=== PATIENT | male | born 1940 | race Caucasian/White ===

== ENCOUNTER → 2017-09-28 | Day surgery (SDC) | payer MEDICARE, OTHER ==
[2017-09-22 16:22] LABS: BASOPHILS # (AUTO) 0.1 (0.0-0.1); BASOPHILS % 0.8 % (0.0-1.0); EOSINOPHILS # (AUTO) 0.6 (0.0-0.4); EOSINOPHILS % 8.9 % (0.0-6.0); HEMATOCRIT 47.1 % (38.2-49.6); HEMOGLOBIN 15.1 g/dL (14.0-18.0); LYMPHOCYTES # (AUTO) 1.2 (1.0-3.2); LYMPHOCYTES % 18.2 % (18.0-39.1); MEAN CORPUSCULAR HEMOGLOBIN 31.3 pg (28-32); MEAN CORPUSCULAR HGB CONC 32.1 g/dL (31-35); MEAN CORPUSCULAR VOLUME 97.7 fL (81-99); MONOCYTES # (AUTO) 0.6 (0.2-0.8); MONOCYTES % 9.4 % (4.4-11.3); NEUTROPHILS % 62.5 % (38.7-80.0); PLATELET COUNT 174 x10e3/uL (140-360); RED BLOOD COUNT 4.82 x10e6/uL (4.3-5.7); RED CELL DISTRIBUTION WIDTH 14.8 % (11.7-14.4)
[~2017-09-28] MED LIST: ALPHA LIPOIC A300 MG PO; AMPICILLIN SODIU1 GM IV; DIABETA5 M1 PO; ENTERIC ASPIRIN81 MG PO; FENTANYL CITRATE/PF 100MCG/2 ML INJ ONE; GLIPIZIDE5 MG PO; Glyburide PO; L-CARNITINE500 M1; L-CARNITINE500 MG PO; LANTUS 3ML100 UNITS/; METOPROLOL TART25 MG PO; MIDAZOLAM HCL 2 MG/2 ML VIAL ONE; OMEPRAZOLE40 MG; PRADAXA150 MG PO; PRADAXA75 MG; PROPOFOL IV EMULSION 10 MG/ML 50 ML VIAL ONE; SOTALOL PO; TAMOXIFEN CITRA10 MG PO; TRILIPIX135 MG PO; Z.0.GLUCOPHAGE500 MG PO; Z.0.LASIX40 MG PO; Z.0.METOPROLOL SUC10 PO; Z.0.MULTAQ400 MG PO; Z.0.PRADAXA150 MG PO; Z.0.SIMVASTATIN40 MG PO; Z.0.TRILIPIX135 MG PO; Z.0.ZESTRIL10 MG PO
== END | disposition home or self-care (01) ==
LOC: OR 11:03
PROVIDERS: ATTEND Internal Medicine Gastroenterology
DX: K21.0 Gastro-esophageal reflux disease with esophagitis (principal); K29.50 Unspecified chronic gastritis without bleeding; K44.9 Diaphragmatic hernia without obstruction or gangrene; I10 Essential (primary) hypertension; D64.9 Anemia, unspecified; E11.9 Type 2 diabetes mellitus without complications; I48.91 Unspecified atrial fibrillation; R05 Cough; Z01.810 Encounter for preprocedural cardiovascular examination; Z01.812 Encounter for preprocedural laboratory examination; Z79.4 Long term (current) use of insulin; Z79.02 Long term (current) use of antithrombotics/antiplatelets; Z85.3 Personal history of malignant neoplasm of breast; Z85.51 Personal history of malignant neoplasm of bladder; Z86.14 Personal history of Methicillin resistant Staphylococcus aureus infection
CPT/HCPCS: 36415 ×2; 43239; 82948; 85025; 88305; 88312; 93005; J2250

== ENCOUNTER 2018-06-06 21:27 | Inpatient (IN) | payer MEDICARE, OTHER ==
[~2018-06-06] VITALS: Ht 188 cm; Wt 97.1 kg
[~2018-06-06 21:27] MED LIST changes: -FENTANYL CITRATE/PF 100MCG/2 ML INJ ONE; -MIDAZOLAM HCL 2 MG/2 ML VIAL ONE; -OMEPRAZOLE40 MG; +OMEPRAZOLE40 MG PO; -PROPOFOL IV EMULSION 10 MG/ML 50 ML VIAL ONE
--- OUTSIDE RECORDS SUMMARY | 2018-06-06 21:32 | XMS REPORT ---
Author Author [facility] Address Unknown Phone Unavailable Care Team Providers Care Medical Insurance Collector Name Role Phone FLORENCE SIERRA Unavailable Unavailable Payers Payer Name Policy Type Policy Number Effective Date Expiration Date Problems This patient has no known problems. Allergies, Adverse Reactions, Alerts Allergy Name Allergy Type Status Severity Reaction(s) Onset Date Inactive Date Treating Clinician Comments No Known Allergies DA Active U 2015-01-03 00:00:00 Medications This patient has no known medications. Results Test Description Test Time Test Comments Text Results Atomic Results Result Comments GLUBED 2018-05-24 16:23:00 GLUBED (test code=GLUBED) 215 mg/dL 74-106 Performed by certified head operator at [facility] [id number] 12:56:00* Test Item Value Reference Range Comments GLUBED (test code=GLUBED) 150 mg/dL 74-106 Performed by certified head operator at [facility] - XR CHEST 2 [id number] 11:31:00 FAX: Vipul Stallworth MD [phone] [place]: B St: ADM FAX: Mahin Huitron MD [phone] Name: HOOD RUIZ KAIN [facility] : 1940 Age/S: 78/M [address] [facility] Unit #: [id number] Loc: V.4036 [place] [address] Phys: Mahin Hayes MD Acct: [id number] Dis Date: Status: ADM IN PHONE #: [phone] Exam Date: 05/24/2018 1028 FAX #: [phone] Reason: S/P PPM INSERTION EXAMS: CPT CODE: [id number] XR CHEST 2 V 17162 HISTORY: Post pacemaker placement. COMPARISON: Previous day. Left pacemaker with the single lead in the right ventricle. No pneumothorax. No infiltrates, effusion or congestion. Calcified granuloma in the right lower lobe. Axillary clips on the right. C ardiomegaly. DJD of the dorsal spine. IMPRESSION: Left pacemaker with the single lead in the right ventricle without pneumothorax. Lungs are clear. at 1131 Reported and signed by: Richelle Mandel M.D. CC: Vipul Calderon MD; Mahin woodward M.D. Technologist: EDUIN WILLIAM JR Trnscrd Date/Time/By: 05/24/2018 (1131) : By: [email or web address] Orig Print D/T: S: 05/24/2018 (9829) PAGE 1 Signed Report BASIC METABOLIC [id number] 06:37:00* Test Item Value Reference Range Comments SODIUM (test code=NA) 142 mmol/L 136-145 POTASSIUM (test code=K) 4.0 mmol/L 3.5-5.1 CHLORIDE (test code=CL) 111.0 mmol/L 98-107 CARBON DIOXIDE (test code=CO2) 24.0 mmol/L 21-32 ANION GAP (test code=GAP) 11.0 10-20 GLUCOSE (test code=GLU) 184 mg/dL 74-106 BLOOD UREA NITROGEN (test code=BUN) 26 mg/dL 7-18 GLOMERULAR FILTRATION RATE (test code=GFR) 42 mL/min >=60 Estimated GFR by using Modified MDRD formula.Chronic kidney disease is defined as either kidney damageor GFR <60 mL/min/1.73 m2 for >3 months. CREATININE (test code=CREAT) 1.60 mg/dL 0.7-1.3 BUN/CREATININE RATIO (test code=BUN/CREA) 16.4 10-20 CALCIUM (test code=CA) 8.5 mg/dL 8.5-10.1 BASIC METABOLIC [id number] 06:27:00* Test Item Value Reference Range Comments SODIUM (test code=NA) 142 mmol/L 136-145 POTASSIUM (test code=K) 4.0 mmol/L 3.5-5.1 CHLORIDE (test code=CL) 111.0 mmol/L 98-107 CARBON DIOXIDE (test code=CO2) mmol/L 21-32 ANION GAP (test code=GAP) 10-20 GLUCOSE (test code=GLU) mg/dL 74-106 BLOOD UREA NITROGEN (test code=BUN) mg/dL 7-18 GLOMERULAR FILTRATION RATE (test code=GFR) mL/min >=60 CREATININE (test code=CREAT) mg/dL 0.7-1.3 BUN/CREATININE RATIO (test code=BUN/CREA) 10-20 CALCIUM (test code=CA) mg/dL 8.5-10.1 CBC W/AUTO [id number] 06:12:00* Test Item Value Reference Range Comments WHITE BLOOD CELL (test code=WBC) 6.5 K/mm3 4.5-12.5 RED BLOOD CELL (test code=RBC) 4.84 mill/mm3 4.0-5.8 HEMOGLOBIN (test code=HGB) 14.6 gram/dL 13.0-17.5 HEMATOCRIT (test code=HCT) 47.3 % 42.0-52.0 MEAN CELL VOLUME (test code=MCV) 97.7 fL 80-98 MEAN CELL HGB (test code=MCH) 30.2 picogram 27.0-33.0 MEAN CELL HGB CONCETRATION (test code=MCHC) 30.9 gram/dL 33.0-36.0 RED CELL DISTRIBUTION WIDTH (test code=RDW) 14.7 % 11.6-16.2 RED CELL DISTRIBUTION WIDTH SD (test code=RDW-SD) 53.1 fL 37.0-51.0 PLATELET COUNT (test code=PLT) 160 K/mm3 150-450 MEAN PLATELET VOLUME (test code=MPV) 10.2 fL 6.7-11.0 NEUTROPHIL % (test code=NT%) 64.5 % 39.0-69.0 IMMATURE GRANULOCYTE % (test code=IG%) 0.3 % 0.0-5.0 LYMPHOCYTE % (test code=LY%) 20.8 % 25.0-55.0 MONOCYTE % (test code=MO%) 8.9 % 0.0-10.0 EOSINOPHIL % (test code=EO%) 4.9 % 0.0-5.0 BASOPHIL % (test code=BA%) 0.6 % 0.0-1.0 NUCLEATED RBC % (test code=NRBC%) 0.0 % 0-0 NEUTROPHIL # (test code=NT#) 4.18 K/mm3 1.8-7.7 IMMATURE GRANULOCYTE # (test code=IG#) 0.02 x10 3/uL 0-0.03 LYMPHOCYTE # (test code=LY#) 1.35 K/mm3 1.0-5.0 MONOCYTE # (test code=MO#) 0.58 K/mm3 0-0.8 EOSINOPHIL # (test code=EO#) 0.32 K/mm3 0.0-0.5 BASOPHIL # (test code=BA#) 0.04 K/mm3 0.0-0.2 NUCLEATED RBC # (test code=NRBC#) 0.00 K/mm3 0.0-0.1 CBC W/AUTO [id number] 06:09:00* Test Item Value Reference Range Comments WHITE BLOOD CELL (test code=WBC) K/mm3 4.5-12.5 RED BLOOD CELL (test code=RBC) mill/mm3 4.0-5.8 HEMOGLOBIN (test code=HGB) 14.6 gram/dL 13.0-17.5 HEMATOCRIT (test code=HCT) 47.3 % 42.0-52.0 MEAN CELL VOLUME (test code=MCV) fL 80-98 MEAN CELL HGB (test code=MCH) picogram 27.0-33.0 MEAN CELL HGB CONCETRATION (test code=MCHC) gram/dL 33.0-36.0 RED CELL DISTRIBUTION WIDTH (test code=RDW) % 11.6-16.2 RED CELL DISTRIBUTION WIDTH SD (test code=RDW-SD) fL 37.0-51.0 PLATELET COUNT (test code=PLT) K/mm3 150-450 MEAN PLATELET VOLUME (test code=MPV) fL 6.7-11.0 NEUTROPHIL % (test code=NT%) % 39.0-69.0 IMMATURE GRANULOCYTE % (test code=IG%) % 0.0-5.0 LYMPHOCYTE % (test code=LY%) % 25.0-55.0 MONOCYTE % (test code=MO%) % 0.0-10.0 EOSINOPHIL % (test code=EO%) % 0.0-5.0 BASOPHIL % (test code=BA%) % 0.0-1.0 NEUTROPHIL # (test code=NT#) K/mm3 1.8-7.7 LYMPHOCYTE # (test code=LY#) K/mm3 1.0-5.0 MONOCYTE # (test code=MO#) K/mm3 0-0.8 EOSINOPHIL # (test code=EO#) K/mm3 0.0-0.5 BASOPHIL # (test code=BA#) K/mm3 0.0-0.2 [id number] 05:45:00* Test Item Value Reference Range Comments GLUBED (test code=GLUBED) 119 mg/dL 74-106 Performed by certified head operator at [facility] - XR CHEST 1 [id number] 12:25:00 FAX: Vipul Stallworth MD [phone] [place]: St: [facility] FAX: Mahin Huitron MD [phone] Name: HOOD RUIZ [facility] : 1940 Age/S: 78/M [address] [facility] Unit #: [id number] Loc: [place] [address] Phys: Mahin Hayes MD Acct: [id number] Dis Date: Status: [facility] PHONE #: [phone] Exam Date: 05/23/2018 1222 FAX #: [phone] Reason: S/P PPM INSERTION EXAMS: CPT CODE: [id number] XR CHEST 1 V 46545 HISTORY: Post pacemaker placement. COMPARISON: July 14, 2014. Left pacemaker with the single lead in the right ventricle without pneumothorax. No acute infiltrates, effusion or congestion is noted. Cardiomegaly. Right axillary clips. IMPRESSION: No pneumothorax after left pacemaker placement with the single lead in the right ventricle. No acute infiltrates, effusion or congestion. at 1225 Reported and signed by: Curtis Mandel M.D. CC: Vipul Calderon MD; Mahin Hayes M.D. Technologist: RT TRINIDAD(R) Trnscrd Date/Time/By: 05/23/2018 (1224) : By: [email or web address] Orig Print D/T: S: 05/23/2018 (2906) PAGE 1 Signed Report CBC W/AUTO [id number] 10:09:00* Test Item Value Reference Range Comments WHITE BLOOD CELL (test code=WBC) 7.0 K/mm3 4.5-12.5 RED BLOOD CELL (test code=RBC) 5.22 mill/mm3 4.0-5.8 HEMOGLOBIN (test code=HGB) 15.9 gram/dL 13.0-17.5 HEMATOCRIT (test code=HCT) 50.8 % 42.0-52.0 MEAN CELL VOLUME (test code=MCV) 97.3 fL 80-98 MEAN CELL HGB (test code=MCH) 30.5 picogram 27.0-33.0 MEAN CELL HGB CONCETRATION (test code=MCHC) 31.3 gram/dL 33.0-36.0 RED CELL DISTRIBUTION WIDTH (test code=RDW) 14.8 % 11.6-16.2 RED CELL DISTRIBUTION WIDTH SD (test code=RDW-SD) 53.7 fL 37.0-51.0 PLATELET COUNT (test code=PLT) 182 K/mm3 150-450 MEAN PLATELET VOLUME (test code=MPV) 10.4 fL 6.7-11.0 NEUTROPHIL % (test code=NT%) 58.9 % 39.0-69.0 IMMATURE GRANULOCYTE % (test code=IG%) 1.3 % 0.0-5.0 LYMPHOCYTE % (test code=LY%) 23.3 % 25.0-55.0 MONOCYTE % (test code=MO%) 9.1 % 0.0-10.0 EOSINOPHIL % (test code=EO%) 6.3 % 0.0-5.0 BASOPHIL % (test code=BA%) 1.1 % 0.0-1.0 NUCLEATED RBC % (test code=NRBC%) 0.0 % 0-0 NEUTROPHIL # (test code=NT#) 4.13 K/mm3 1.8-7.7 IMMATURE GRANULOCYTE # (test code=IG#) 0.09 x10 3/uL 0-0.03 LYMPHOCYTE # (test code=LY#) 1.63 K/mm3 1.0-5.0 MONOCYTE # (test code=MO#) 0.64 K/mm3 0-0.8 EOSINOPHIL # (test code=EO#) 0.44 K/mm3 0.0-0.5 BASOPHIL # (test code=BA#) 0.08 K/mm3 0.0-0.2 NUCLEATED RBC # (test code=NRBC#) 0.00 K/mm3 0.0-0.1 MANUAL DIFF REQUIRED (test code=MDIFF) NO BASIC METABOLIC [id number] 10:05:00* Test Item Value Reference Range Comments SODIUM (test code=NA) 143 mmol/L 136-145 POTASSIUM (test code=K) 4.2 mmol/L 3.5-5.1 CHLORIDE (test code=CL) 110.0 mmol/L 98-107 CARBON DIOXIDE (test code=CO2) 26.0 mmol/L 21-32 ANION GAP (test code=GAP) 11.2 10-20 GLUCOSE (test code=GLU) 139 mg/dL 74-106 BLOOD UREA NITROGEN (test code=BUN) 27 mg/dL 7-18 GLOMERULAR FILTRATION RATE (test code=GFR) 35 mL/min >=60 Estimated GFR by using Modified MDRD formula.Chronic kidney disease is defined as either kidney damageor GFR <60 mL/min/1.73 m2 for >3 months. CREATININE (test code=CREAT) 1.90 mg/dL 0.7-1.3 BUN/CREATININE RATIO (test code=BUN/CREA) 14.3 10-20 CALCIUM (test code=CA) 8.8 mg/dL 8.5-10.1 [id number] 10:04:00* Test Item Value Reference Range Comments GLUBED (test code=GLUBED) 123 mg/dL 74-106 Performed by certified head operator at [facility] PROTHROMBIN [id number] 09:55:00* Test Item Value Reference Range Comments PROTHROMBIN TIME PATIENT (test code=PTP) 13.5 seconds 9.0-14.0 INTERNATIONAL NORMAL RATIO (test code=INR) 1.1 0.8-1.2 The therapeutic range for oral anticoagulant therapy formost indications is an international normalized ratio (INR)of between 2.0 and 3.0. The recommended therapeutic INRrange for various clinical situations is listed below: Clinical Situation INR range Pulmonary e mbolism treatment (2.0-3.0)Venous thrombosis treatmentVenous thrombosis prophylaxis (high risk surgery)Prevention of systemic embolism from: Acute myocardial infarction Valvular heart disease Atrial fibrillation Mechanical prosthetic heart valves (2.5-3.5) BASIC METABOLIC [id number] 09:45:00* Test Item Value Reference Range Comments SODIUM (test code=NA) 143 mmol/L 136-145 POTASSIUM (test code=K) 4.2 mmol/L 3.5-5.1 CHLORIDE (test code=CL) 110.0 mmol/L 98-107 CARBON DIOXIDE (test code=CO2) 26.0 mmol/L 21-32 ANION GAP (test code=GAP) 11.2 10-20 GLUCOSE (test code=GLU) mg/dL 74-106 BLOOD UREA NITROGEN (test code=BUN) 27 mg/dL 7-18 GLOMERULAR FILTRATION RATE (test code=GFR) mL/min >=60 CREATININE (test code=CREAT) mg/dL 0.7-1.3 BUN/CREATININE RATIO (test code=BUN/CREA) 10-20 CALCIUM (test code=CA) 8.8 mg/dL 8.5-10.1 TISSUE [id number] 10:37:00Surgical Pathology Report Case: [id number] Authorizing Provider: John Sierra, Collected: 04/14/2018 0931 Ordering Location: [facility] Received: 04/14/2018 1227 SERVICES Pathologist: Shayla Singh MD Specimens: A) - Biopsy, Gastroesophageal Junction, GE JUNCTION NODULE BX AT 42CM - R/O BARRETTS B) - Biopsy, Gastroesophageal Junction, GE JUNCTION BX AT 42CM - R/O BARRETTS C) - Biopsy, Esophagus, ESOPHAGUS BX AT 41CM - R/O BARRETTS A. GASTROESOPHAGEAL JUNCTION, NODULE, BIOPSY AT 42 CM, BIOPSY: - PREDOMINANTLY FOVEOLAR EPITHELIUM WITH HYPERPLASTIC AND REGENERATIVE CHANGES - NEGATIVE FOR DYSPLASIA OR INTESTINAL METAPLASIA B. GASTROESOPHAGEAL JUNCTION AT 42 CM, BIOPSY: - SQUAMOCOLUMNAR JUNCTIONAL MUCOSA WITH FOVEOLAR HYPERPLASIA - CHRONIC ACTIVE CARDIOESOPHAGITIS - NEGATIVE FOR DYSPLASIA OR INTESTINAL METAPLASIA C. ESOPHAGUS AT 41 CM, BIOPSY: - MILD ACTIVE ESOPHAGITIS WITH MILD BASAL CELL HYPERPLASIA AND INCREASE INTRAEPITHELIAL EOSINOPHILS UPTO 10 PER HIGH POWER FIELD ( SEE COMMENT) - PASD SATIN FOR FUNGAL ORGANISMS IS NEGATIVE - IMMUNOSTAINS HSV-1 AND 2 ARE NEGATIVE FOR VIRAL INCLUSION Signing Pathologist Direct Phone Line: [phone] signed by Shayla Singh MD on 04/18/2018 at 10:37 AMEndoscopic report reviewed./[id number]'s es ophagus with low-grade dysplasia, rule out Rios's A. GE junction nodule biops y at 42 cm. B. GE junction biopsy at 42 cm. C. Esophagus biopsy at 41 cmSpecimen is received in three containers of formalin all labeled with the patient's info rmation. Specimen A: Labeled "GE junction nodule biopsy at 42 cm" consists of a 0.3 cm fragment of rodriguez tissue submitted in A1. Specimen B: Labeled "GE junction biopsy at 42 cm" consists of three fragments of rodriguez tissue ranging from less anne marie n 0.1 to 0.3 cm, submitted in B1. Specimen C: Labeled "esophagus biopsy at 41 cm " consists of multiple fragments of off-white tissue ranging from less than 0.1 and 0.3 cm, submitted in C1. CG/ew Performed The interpretation of this case inc luded the use of immunohistochemistry or special stains. Immunohistochemistry te chnical testing was performed at [facility], Pathology Lab oratory where it was developed and its performance characteristics were determin ed. It has not been cleared or approved by the U.S. Food and Drug Administration . The FDA has determined that such clearance or approval is not necessary. The t est is used for clinical purposes. It should not be regarded as investigational or for research. This laboratory is certified under the Clinical Laboratory Impr ovement Amendments of 1988 (CLIA-88) as qualified to perform high complexity cli nical laboratory testing.POCT-GLUCOSE [id number] 07:57:00* Test Item Value Reference Range Comments POC-GLUCOSE METER (BEAKER) (test gvoq=4103) 179 mg/dL 70-110 TESTED AT [facility] [address] [facility] [address] POCT-GLUCOSE [id number] 08:16:00* Test Item Value Reference Range Comments POC-GLUCOSE METER (BEAKER) (test oxav=2405) 146 mg/dL 70-110 TESTED AT [address] [address]
--- OUTSIDE RECORDS SUMMARY | 2018-06-06 21:32 | XMS REPORT | Clinical Summary ---
Author Author MARITZA Overture ServicesIdaho Falls Community HospitalSocialSafe [facility] Overture ServicesSt[facility] Luke'S Bo[facility] Medical CenterRed Rabbit incSt. [facility] Address Unknown Phone Unavailable Care Team Providers Care Authorizer Name Role Phone Pcp, No PCP Unavailable Allergies No Known Allergies Medications End Date Status Medication Sig Dispensed Refills Start Date Active insulin glargine (LANTUS) Inject 28 0 100 unit/mL injection Units subcutaneousl y nightly Use as directed . Active metoprolol (TOPROL-XL) 50 Take 50 mg by 0 MG 24 hr tablet mouth 2 (two) times daily Takes 1 tablet in am and 0.5 tablet at hs . Active dabigatran (PRADAXA) 75 Take 75 mg by 0 mg CapIndications: mouth 2 (two) Prevent Thromboembolism times daily. in Chronic Atrial Fibrillation Active fenofibrate micronized Take 134 mg 0 (LOFIBRA) 134 MG capsule by mouth every morning before breakfast. Active glipiZIDE (GLUCOTROL) 5 Take 5 mg by 0 MG tablet mouth daily with breakfast. Active omeprazole (PRILOSEC) 40 Take 40 mg by 0 MG capsule mouth daily. Active tamoxifen (NOLVADEX) 10 Take 10 mg by 0 MG tablet mouth daily. Active UNKNOWN 2 tablets 2 0 (two) times daily Alpha Lipoic acid . Active levOCARNitine tartrate Take 1 tablet 0 250 mg Cap by mouth daily. Active coenzyme Q10 100 mg Take 100 mg 0 capsule by mouth daily occasionally . Active Lactobacillus acidophilus Take by mouth 0 (PROBIOTIC ORAL) as needed occasionally . Active enzymes,digestive Take by mouth 0 (DIGESTIVE ENZYMES ORAL) as needed 3 times per week . Active Problems Not on file Encounters Care Team Description Date Type Specialty Damien Woodruff MD 04/14/2018 Anesthesia Event John iSerra MD UPPER ENDOSCOPY 04/14/2018 Surgery John Sierra MD 04/14/2018 Hospital Encounter Resource, Oq[facility] Preadmit Phone 04/01/2018 Hospital Pre-Admission Testing Encounter Amarilys Wall MD 02/10/2018 Anesthesia Event John Sierra MD ESOPHAGOSCOPY,RADIOFREQUENCY ABLATION 02/10/2018 Surgery John Sierra MD 02/10/2018 Hospital Encounter Resource, [facility] Preadmit Phone 2018 Hospital Pre-Admission Testing Encounter after 06/05/2017 Social History Date Tobacco Use Types Packs/Day Years Used Quit: 1979 Former Smoker 2 20 Smokeless Tobacco: Never Used Alcohol Use Drinks/Week oz/Week Comments Yes occasionally Sex Assigned at Date Recorded Not on file Industry Job Start Date Occupation Not on file Not on file Not on file Travel End Travel History Travel Start No recent travel history available. Last Filed Vital Signs Time Taken Vital Sign Reading 04/14/2018 10:10 AM RESIDENT INSPECTOR Blood Pressure 98/71 04/14/2018 10:10 AM RESIDENT INSPECTOR Pulse 57 04/14/2018 9:40 AM RESIDENT INSPECTOR Temperature 36.3 C (97.3 F) 04/14/2018 10:10 AM RESIDENT INSPECTOR Respiratory Rate 22 04/14/2018 10:10 AM RESIDENT INSPECTOR Oxygen Saturation 97% - Inhaled Oxygen - Concentration 04/14/2018 7:39 AM RESIDENT INSPECTOR Weight 99.3 kg (218 lb 14.4 oz) 04/14/2018 7:39 AM RESIDENT INSPECTOR Height 188 cm (6' 2") 04/14/2018 7:39 AM RESIDENT INSPECTOR Body Mass Index 28.11 Plan of Treatment Not on file Procedures Comments Procedure Name Priority Date/Time Associated Diagnosis REPORT OF PROCEDURE - 04/14/2018 ENDOSCOPY URL 9:53 AM RESIDENT INSPECTOR TISSUE EXAM AP Routine 04/14/2018 9:31 AM RESIDENT INSPECTOR UPPER ENDOSCOPY 04/14/2018 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 Report [facility] Case: [id number] Authorizing Provider:John Sierra, Collected: 04/14/2018 0931 Ordering Location: [facility] ENDOSCOPY Received: 04/14/2018 1227 SERVICES Pathologist: Shayla Singh MD Specimens: A) - Biopsy, Gastroesophageal Junction, GE JUNCTION NODULE BX AT 42CM - R/O BARRETTS B) - Biopsy, Gastroesophageal Junction, GE JUNCTION BX AT 42CM - R/O BARRETTS C) - Biopsy, Esophagus, ESOPHAGUS BX AT 41CM - R/O BARRETTS DIAGNOSIS A. GASTROESOPHAGEAL JUNCTION, [facility] NODULE, BIOPSY AT 42 CM, [facility] BIOPSY: - PREDOMINANTLY FOVEOLAR EPITHELIUM WITH HYPERPLASTIC [...] VIRAL INCLUSION Signing Pathologist Direct Phone Line: [phone] COMMENT Endoscopic report reviewed. [facility] CPT Code(s) SJ/ew 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 GE junction nodule biopsy [facility] at 42 cm. B. GE junction [facility] biopsy at 42 cm. C. Esophagus biopsy at 41 cm GROSS DESCRIPTION Specimen is received in three [facility] containers of formalin all [facility] labeled with the patient's information. Specimen A: Labeled "GE junction nodule biopsy at 42 cm" consists of a 0.3 cm fragment of rodriguez tissue submitted in A1. Specimen B: Labeled "GE junction biopsy at 42 cm" consists of three fragments of rodriguez tissue ranging from less than 0.1 to 0.3 cm, submitted in B1. Specimen C: Labeled "esophagus biopsy at 41 cm" consists of multiple fragments of off-white tissue ranging from less than 0.1 and 0.3 cm, submitted in C1. CG/ew MICROSCOPIC DESCRIPTION Performed [facility] SPECIAL STUDIES The interpretation of this [facility] case included the use of [facility] immunohistochemistry or special stains. Immunohistochemistry technical testing was performed at [facility], Pathology Laboratory where it was developed and its performance characteristics were determined. It has not been cleared or approved by the U.S. Food and Drug Administration. The FDA has determined that such clearance or approval is not necessary. The test is used for clinical purposes. It should not be regarded as investigational or for research. This laboratory is certified under the Clinical Laboratory Improvement Amendments of 1988 (CLIA-88) as qualified to perform high complexity clinical laboratory testing. Specimen Tissue - Biopsy, Gastroesophageal Junction Performing Organization Address City/[facility] Centercode Phone Number [facility] [address] [place] [address] [facility] * POC-Glucose meter (04/14/2018 7:50 AM RESIDENT INSPECTOR) Only the most recent of 2 results within the time period is included. POC-Glucose Meter 179 (H)Comment: TESTED AT 70 - 110 mg/dL [facility] [address] [facility] [address] Specimen Blood Performing Organization Address City/[facility] Centercode Phone Number [facility] [address] [place] [address] [facility] * REPORT OF PROCEDURE - ENDOSCOPY URL (02/10/2018 9:49 AM CDT) Narrative Performed At after 06/05/2017 Insurance Payer Benefit Subscriber ID Type Phone Address Plan / Group MEDICARE MEDICARE A xxxxxxxxxxx Medicare B MCR SUPPLEMENT/INDIVIDUAL GENERIC xxxxxxxxx [place] MEDICARE SUPPLEMENT
[2018-06-06] MEDS ORDERED: IBUPROFEN 400 MG TAB PO ONE (22:00)
[2018-06-06] MEDS ORDERED: VANCOMYCIN 1GM/NS 250 ML 250 ML IV ONE (22:00)
[2018-06-06] MEDS ORDERED: SODIUM CHLORIDE 0.9% 1000ML 1,000 ML IV SCH (22:15)
--- NOTE | 2018-06-06 22:39 | Diagnostic Imaging Report ---
EXAMINATION: CHEST SINGLE (PORTABLE) COMPARISON: None INDICATION: Infected foot ^ERMD ORDER ^[id number] ^2212 ^Y DISCUSSION: Frontal view of the chest obtained at 2206 hours. HEART AND MEDIASTINUM: The heart is top normal in size. There are calcifications of the aortic arch. LINES: AICD lead terminates in the right ventricle LUNGS: The lungs are well inflated and clear. Calcified granulomata in the right hilum. Ossified granuloma in the right midlung field measures 6 mm. A left perihilar calcification measures 5 mm. No infiltrates PLEURA: No pleural effusion or pneumothorax. BONES AND SOFT TISSUES: No focal osseous lesion. The soft tissues are normal. IMPRESSION: No acute cardiopulmonary process. Other findings as described above. Signed by: Dr. Austin Bowling MD on 06/06/2018 10:36 PM
--- NOTE | 2018-06-06 22:44 | Diagnostic Imaging Report ---
Foot complete CPT code: 51133 Indication: Infected foot for several weeks ^r/o osteomylitis ^[id number] ^2217 ^Y Technique: A.P., oblique and lateral views of the left foot obtained. Comparison: None Findings: Soft tissues: Soft tissue defect with subcutaneous gas lies at the medial and plantar aspect of the forefoot at the head of the first metatarsal. There are no radiopaque foreign bodies. Calcaneus is intact with a prominent plantar spur. The midfoot is intact. No evidence of displaced fracture or dislocation involving any of the digits. There is subtle demineralization of the head of the first metatarsal adjacent to the soft tissue defect. No periosteal new bone formation. Remainder of the digit is intact. There are a few calcified vessels in the forefoot and in the posterior hindfoot. IMPRESSION: Soft tissue defect with subcutaneous emphysema adjacent to the head of the first metatarsal with underlying demineralization of the adjacent bone concerning for osteomyelitis. Signed by: Dr. Austin Bowling MD on 06/06/2018 10:41 PM
[2018-06-06 23:46] LABS: BASOPHILS % 0.3 % (0.0-1.0); EOSINOPHILS % 0.1 % (0.0-6.0); HEMATOCRIT 39.5 % (38.2-49.6); HEMOGLOBIN 12.9 g/dL (14.0-18.0); LYMPHOCYTES # (AUTO) 0.8 (1.0-3.2); LYMPHOCYTES % 5.2 % (18.0-39.1); MEAN CORPUSCULAR HEMOGLOBIN 30.6 pg (28-32); MEAN CORPUSCULAR HGB CONC 32.7 g/dL (31-35); MEAN CORPUSCULAR VOLUME 93.8 fL (81-99); MONOCYTES # (AUTO) 1.2 (0.2-0.8); MONOCYTES % 7.7 % (4.4-11.3); NEUTROPHILS # (AUTO) 13.4 (2.1-6.9); NEUTROPHILS % 85.9 % (38.7-80.0); PLATELET COUNT 352 x10e3/uL (140-360); RED BLOOD COUNT 4.21 x10e6/uL (4.3-5.7)
[2018-06-06] MEDS: PIPER-TAZ 3.375 GM 50 ML IV SCH (23:47)
[2018-06-06 23:56] LABS: INR 1.36; PROTHROMBIN TIME 17.9 seconds (11.9-14.5)
[2018-06-07] LABS: BILIRUBIN,URINE 1+ (NEGATIVE); CLARITY,URINE CLEAR (CLEAR); COLOR,URINE ORANGE (YELLOW); KETONES,URINE TRACE (NEGATIVE); LEUKOCYTE ESTERASE ,URINE NEGATIVE (NEGATIVE); NITRITE,URINE NEGATIVE (NEGATIVE); PROTEIN,URINE DIPSTICK TRACE (NEGATIVE); URINE UROBILINOGEN 1 mg/dL (0.2 - 1)
[2018-06-07] MEDS ORDERED: ONDANSETRON HCL INJ 2MG/ML 2ML 2 MG/ML VIAL IV PRN
[2018-06-07] MEDS ORDERED: DEXTROSE 50% SYRINGE 50 ML IV PRN
[2018-06-07] MEDS ORDERED: SODIUM CHLORIDE 0.9% 1000ML 1,000 ML IV ONE
[2018-06-07 00:03] LABS: ALBUMIN 3.2 g/dL (3.5-5.0); ALBUMIN/GLOBULIN RATIO 0.9 (0.8-2.0); ANION GAP 13.8 mmol/L (8-16); CREATININE, SERUM 2.08 mg/dL (0.72-1.25); POTASSIUM 4.8 mmol/L (3.5-5.1)
[2018-06-07 00:18] LABS: CALCIUM 10.1 mg/dL (8.4-10.2)
[2018-06-07 00:34] LABS: BACTERIA,URINE FEW /HPF; CALCIUM CARBONATE CRYSTALS,UR MANY; CALCIUM OXALATE CRYSTALS,UR FEW (FEW); EPITHELIAL CELLS,URINE FEW /LPF
--- OUTSIDE RECORDS SUMMARY | 2018-06-07 00:41 | XMS REPORT | Clinical Summary ---
Author Author MARITZA [facility] HospitalSocial [facility] Address Unknown Phone Unavailable Care Team Providers Care Cuff Turner Machine Operator Name Role Phone Pcp, No PCP Unavailable [...] Damien Woodruff MD 04/14/2018 Anesthesia Event John Sierra MD UPPER ENDOSCOPY 04/14/2018 Surgery John Sierra MD 04/14/2018 Hospital Encounter Resource, [facility] Preadmit Phone 04/01/2018 Hospital Pre-Admission Testing Encounter Amarilys Wall MD 02/10/2018 Anesthesia Event John Sierra MD ESOPHAGOSCOPY,RADIOFREQUENCY ABLATION 02/10/2018 Surgery John Sierra MD 02/10/2018 Hospital Encounter Resource, [facility] Preadmit Phone 2018 Hospital Pre-Admission Testing Encounter after 06/06/2017 Social History Date Tobacco Use Types Packs/Day [...] Taken Vital Sign Reading 04/14/2018 10:10 AM HEMODIALYSIS PATIENT CARE SPECIALIST Blood Pressure 98/71 04/14/2018 10:10 AM HEMODIALYSIS PATIENT CARE SPECIALIST Pulse 57 04/14/2018 9:40 AM HEMODIALYSIS PATIENT CARE SPECIALIST Temperature 36.3 C (97.3 F) 04/14/2018 10:10 AM HEMODIALYSIS PATIENT CARE SPECIALIST Respiratory Rate 22 04/14/2018 10:10 AM HEMODIALYSIS PATIENT CARE SPECIALIST Oxygen Saturation 97% - Inhaled Oxygen - Concentration 04/14/2018 7:39 AM HEMODIALYSIS PATIENT CARE SPECIALIST Weight 99.3 kg (218 lb 14.4 oz) 04/14/2018 7:39 AM HEMODIALYSIS PATIENT CARE SPECIALIST Height 188 cm (6' 2") 04/14/2018 7:39 AM HEMODIALYSIS PATIENT CARE SPECIALIST Body Mass Index 28.11 Plan of Treatment Not on file Procedures Comments Procedure Name Priority Date/Time Associated Diagnosis REPORT OF PROCEDURE - 04/14/2018 ENDOSCOPY URL 9:53 AM HEMODIALYSIS PATIENT CARE SPECIALIST TISSUE EXAM AP Routine 04/14/2018 9:31 AM HEMODIALYSIS PATIENT CARE SPECIALIST UPPER ENDOSCOPY 04/14/2018 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 POCT-GLUCOSE METER Routine 04/14/2018 7:50 AM HEMODIALYSIS PATIENT CARE SPECIALIST REPORT OF PROCEDURE - 02/10/2018 ENDOSCOPY URL 9:49 AM CDT ESOPHAGOSCOPY,RADIOFREQUE 02/10/2018 Rios's esophagus with NCY ABLATION 9:00 AM CDT low grade dysplasia POCT-GLUCOSE METER Routine 02/10/2018 8:13 AM CDT after 06/06/2017 Results * REPORT OF PROCEDURE - ENDOSCOPY URL (04/14/2018 9:53 AM HEMODIALYSIS PATIENT CARE SPECIALIST) Narrative Performed At * Tissue Exam (04/14/2018 9:31 AM HEMODIALYSIS PATIENT CARE SPECIALIST) Case Report Surgical Pathology [facility] Report [facility] Case: [id number] Authorizing Provider:John Sierra, Collected: 04/14/2018 0931 Ordering Location: [facility] ENDOSCOPY Received: 04/14/2018 1227 SERVICES Pathologist: Shayla Singh MD Specimens: A) - Biopsy, Gastroesophageal Junction, GE JUNCTION NODULE BX AT 42CM - R/O BARRETTS B) - Biopsy, Gastroesophageal Junction, GE JUNCTION BX AT 42CM - R/O BARRETTS C) - Biopsy, Esophagus, ESOPHAGUS BX AT 41CM - R/O BARRETTS DIAGNOSIS A. GASTROESOPHAGEAL JUNCTION, [facility] NODULE, BIOPSY AT 42 CM, [facility] BIOPSY: - PREDOMINANTLY FOVEOLAR EPITHELIUM WITH HYPERPLASTIC [...] VIRAL INCLUSION Signing Pathologist Direct Phone Line: [phone] COMMENT Endoscopic report reviewed. 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 GE junction nodule biopsy [facility] at 42 cm. B. GE junction [facility] biopsy at 42 cm. C. Esophagus biopsy at 41 cm GROSS DESCRIPTION Specimen is received in three [facility] containers of formalin all [facility] labeled with the patient's information. Specimen A: [...] submitted in C1. CG/ew MICROSCOPIC DESCRIPTION Performed [facility] SPECIAL STUDIES The interpretation of this [facility] case included the use of [facility] immunohistochemistry or special stains. Immunohistochemistry technical testing was performed at [facility], Pathology Laboratory where it was developed and [...] - Biopsy, Gastroesophageal Junction Performing Organization Address City/[facility] Cent[facility] Phone Number [facility] [address] [place] [address] [facility] * POC-Glucose meter (04/14/2018 7:50 AM HEMODIALYSIS PATIENT CARE SPECIALIST) Only the most recent of 2 results within the time period is included. POC-Glucose Meter 179 (H)Comment: TESTED AT 70 - 110 mg/dL [facility] [address] [facility] [address] Specimen Blood Performing Organization Address City/[facility] Centercode Phone Number [facility] [address] [place] [address] [facility] * REPORT OF PROCEDURE - ENDOSCOPY URL (02/10/2018 9:49 AM CDT) Narrative Performed At after 06/06/2017 Insurance Payer Benefit Subscriber ID Type Phone Address Plan / Group MEDICARE MEDICARE A xxxxxxxxxxx Medicare B MCR SUPPLEMENT/INDIVIDUAL GENERIC xxxxxxxxx [place] MEDICARE SUPPLEMENT
[2018-06-07 06:10] LABS: CREATINE KINASE MB 1.3 ng/mL (0-5.0)
[2018-06-07] MEDS ORDERED: SULFAMETHOXAZO1 EAC1 PO (06:17)
[2018-06-07] MEDS ORDERED: METOPROLOL SUCC50 MG PO (06:17)
[2018-06-07] MEDS ORDERED: TRILIPIX135 MG PO (06:17)
[2018-06-07] MEDS ORDERED: PRADAXA75 MG PO (06:17)
[2018-06-07] MEDS ORDERED: DOXYCYCLINE HY100 MG PO (06:17)
[2018-06-07] MEDS: PIPER-TAZ 3.375 GM 50 ML IV SCH ×4 (06:40→17:01)
--- NOTE | 2018-06-07 07:30 | NUR ---
BEDSIDE REPORT GIVEN TO FARIHA WILSON DAY SHIFT NURSE.
[2018-06-07] MEDS: INSULIN LISPRO 100 UNIT/1 ML 3ML VIAL SQ SCH ×5 (09:27→20:51)
--- NOTE | 2018-06-07 12:53 | NUR ---
WOUND CARE CONSULTATION- INITIAL EVALUATION Patient admitted to ER from Home with worsening foot ulcer to left foot. DX: Infected DFU to Left Foot. 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 PVD. - Patient followed by Dr Haji DPM outpatient & inpatient - Dr. Rodríguez on case for IV ABX. - X-ray Left Foot - Concerning for OM+ of 1st Met. - MRI- Pending - Wound Culture of Left Foot Wound - awaiting results. - Wound care consulted for left foot ulcer evaluation and recommendation. LABS: WBC15.57 HGB12.9 HCT39.5 NEUT%85.9 MJD445 HbA1c8.3 ALB3.2 PATIENT VISIT: - Pleasant 78 y/0 male in bed. - Left Foot forefoot wrapped CDI. - Denies pain. states to not have much feeling on foot. - Verbalizes patient seen by Dr. Haji at his office 2 days ago and was advised to come in for IV ABX therapy and wound care. - Left foot 1st Met head ulceration extending to Right Hallux, Necrotic area is boggy and malodorous draining cloudy serous, serosanguineous exudate, irregular shaped area of ischemic/ necrotic tissue with erythema extending to dorsal mid foot. Foot is warm to touch compared to right foot. no palpable pulses to dorsalis pedis and tibial medial and lateralis. Edema present to right foot +2, Left foot +2-3. - Noted area previously cultured during ER visit and deferred recultured at this time. IMPRESSION; Left Foot Hallux and 1st Met Head- DFU grade 3. RECOMMENDATION: Conservative Care at this time. Dr. Haji to follow with patient and guide care. IV ABX per Dr. Rodríguez. Left Foot- Great Toe To 1st Metatarsal Head- - Cleanse wound with NS and 4x4 gauze - Apply Betadine Moistened gauze and cover with bolstered 4x4 gauze and secure with Kerlix daily. 2. NWB Left Foot. 3. Offload Heels with Pillows while in Bed 4. Encourage patient to turn and reposition q2h. Thank you for consulting with Wound Care. Addendum: 06/07/18 at 1314 by Spike Patel RN Amended: Links added.
[2018-06-07 13:00] VITALS: BP 133/67
--- NOTE | 2018-06-07 13:00 | NUR ---
Received pt at this time from ER. Pt is admitted for osteomyelitis of left diabetic foot ulcer. Pt is aox4 and able to verbalize needs. Pt denies any pain. 0 s/s of acute distress noted. Dr. Jane notified of pt admittance to the floor and home medications have been renewed.
[2018-06-07 13:08] VITALS: BP 133/67
--- NOTE | 2018-06-07 13:23 | History and Physical ---
REASON FOR ADMISSION: Left foot osteomyelitis. HISTORY OF PRESENT ILLNESS: The patient is a gentleman with history of diabetes, chronic kidney disease, who presents with nonhealing left foot wound, seen by Dr. Haji, who then told him to go to the emergency room where he was noticed by x-ray to have the evidence of osteomyelitis of the left foot. PAST MEDICAL HISTORY: Significant for diabetes, hypertension, and chronic kidney disease stage 3. MEDICATIONS: See MAR. ALLERGIES: NONE. SOCIAL HISTORY: Nonsmoker. Nondrinker. FAMILY HISTORY: Hypertension. PHYSICAL EXAMINATION: VITAL SIGNS: Temperature 98.6, blood pressure 115/76, pulse of 90, and sats 100% on room air. GENERAL: In no apparent distress, lying in bed. NECK: Supple. LUNGS: Clear to auscultation bilaterally. CARDIOVASCULAR: Regular rate and rhythm. ABDOMEN: Good bowel sounds. Soft and nontender. EXTREMITIES: Show no clubbing or cyanosis. He does have an open area on the plantar side of his foot and has some purulent drainage coming near the metatarsal area on the left foot. NEUROLOGIC: He moves all extremities x4. ASSESSMENT AND PLAN: 1. Osteomyelitis of the left foot. Continue with IV antibiotics from Dr. Haji and Dr. Rodríguez. 2. Diabetes. Continue with current care and monitoring. 3. Leukocytosis. Continue to monitor. 4. Chronic kidney disease, stage 3. Continue to monitor. Please see for full details. MD JORDI Suazo/ARPIT /[id number]
[2018-06-07 14:00] VITALS: BP 133/67
[2018-06-07 14:27] VITALS: BP 133/67
[2018-06-07 15:52] VITALS: BP 132/62
[2018-06-07] MEDS ORDERED: SODIUM CHLORIDE 0.9% 250ML 250 ML ONE (16:43)
[2018-06-07] MEDS ORDERED: METOPROLOL TARTRATE 25 MG TAB PO SCH ×2 (17:00)
[2018-06-07] MEDS: PANTOPRAZOLE SOD 40 MG TABEC PO SCH (17:00)
[2018-06-07] MEDS: DABIGATRAN ETEXILATE 75 MG CAP PO SCH (17:01)
--- NOTE | 2018-06-07 19:30 | NUR ---
patient received awake, alert, lying quietly in bed. no c/o pain noted. left foot dressing remains c,d,i. pm assessment complete. call greenberg placed within reach. patient instructed to call for assistance when needed.
[2018-06-07 20:00] VITALS: BP 107/70
[2018-06-07] MEDS: TAMOXIFEN CITRATE 10 MG TAB PO SCH (20:50)
[2018-06-08] VITALS (7 sets, daily range): BP systolic 97–137; BP diastolic 56–84
--- NOTE | 2018-06-08 | NUR ---
left ac iv d/c'd due to leaking at site. clean dry dressing applied to site. new iv #20 gauge placed to left hand x 1 stick.
[2018-06-08] MEDS: PIPER-TAZ 3.375 GM 50 ML IV SCH ×3 (05:18→12:15)
[2018-06-08 06:39] LABS: BASOPHILS # (AUTO) 0.1 (0.0-0.1); BASOPHILS % 0.5 % (0.0-1.0); EOSINOPHILS # (AUTO) 0.2 (0.0-0.4); EOSINOPHILS % 1.4 % (0.0-6.0); HEMATOCRIT 34.5 % (38.2-49.6); HEMOGLOBIN 11.2 g/dL (14.0-18.0); LYMPHOCYTES # (AUTO) 1.4 (1.0-3.2); LYMPHOCYTES % 13.1 % (18.0-39.1); MEAN CORPUSCULAR HEMOGLOBIN 30.7 pg (28-32); MEAN CORPUSCULAR HGB CONC 32.5 g/dL (31-35); MEAN CORPUSCULAR VOLUME 94.5 fL (81-99); MONOCYTES % 8.7 % (4.4-11.3); NEUTROPHILS # (AUTO) 8.3 (2.1-6.9); NEUTROPHILS % 75.5 % (38.7-80.0); PLATELET COUNT 317 x10e3/uL (140-360); RED BLOOD COUNT 3.65 x10e6/uL (4.3-5.7)
[2018-06-08 07:02] LABS: ALBUMIN 2.3 g/dL (3.5-5.0); ALBUMIN/GLOBULIN RATIO 0.7 (0.8-2.0); ANION GAP 11.3 mmol/L (8-16); CALCIUM 8.5 mg/dL (8.4-10.2); CREATININE, SERUM 1.68 mg/dL (0.72-1.25); POTASSIUM 4.3 mmol/L (3.5-5.1)
--- NOTE | 2018-06-08 07:16 | NUR ---
PATIENT IN BED RESTING WITH NO RESPIRATORY DISTRESS. LEFT CHEST DRESSING FROM PACEMAKER PLACEMENT, DRY AND INTACT. DRESSING DRY AND INTACT TO LEFT FOOT. BED IN LOWER POSITION, CALL LIGHT AT REACH.
[2018-06-08] MEDS: INSULIN LISPRO 100 UNIT/1 ML 3ML VIAL SQ SCH ×4 (07:30→21:00)
[2018-06-08] MEDS: GLIPIZIDE 5 MG TAB PO SCH (07:54)
[2018-06-08] MEDS: PANTOPRAZOLE SOD 40 MG TABEC PO SCH ×2 (07:54→17:00)
[2018-06-08] MEDS ORDERED: ACETAMINOPHEN 325 MG TAB PO PRN (08:00)
[2018-06-08] MEDS ORDERED: METOPROLOL SUCCINATE 50 MG TAB XL PO SCH (09:00)
[2018-06-08] MEDS ORDERED: DOXYCYCLINE HYCLATE TABLET 100 MG TAB PO SCH (09:00)
[2018-06-08] MEDS: DABIGATRAN ETEXILATE 75 MG CAP PO SCH ×2 (09:18→17:44)
--- NOTE | 2018-06-08 11:00 | NUR ---
PATIENT NOTED WITH TEMPERATURE OF 100.2, NOTIFIED, NEW ORDER RECEIVED AND IMPLEMENTED. TEMP RECHECKED WITH THE REAING OF 98.3. WILL CONTINUE TO MONITOR.
--- NOTE | 2018-06-08 15:07 | NUR ---
CM SPOKE TO PATIENT AT BEDSIDE REGARDING IMM LETTER. IMM LETTER GIVEN WITH EXPLANATION BASED ON ANTICIPATED DISCHARGE DATE WITHIN 48 HOURS. ORIGINAL SIGNED BY PATIENT. COPY OF ORIGINAL PLACED IN CHART; COPY OF ORIGINAL DOCUMENT GIVEN TO PATIENT AT BEDSIDE AND PLACED IN CARE TRANSITION FOLDER. CM CONTACT INFORMATION GIVEN TO PATIENT FOR ANY NEEDS OR CONCERNS. PATIENT WITH NO FURTHER QUESTIONS.
--- NOTE | 2018-06-08 15:53 | NUR ---
DRESSING CHANGED TO LEFT FOOT ORDERED. ALL PERSONAL ITEMS CLOSE TO PATIENT. BED IN LOWER POSITION, CALL LIGHT AT REACH.
--- NOTE | 2018-06-08 16:23 | Consultation ---
DATE OF CONSULTATION: 06/08/2018 CHIEF COMPLAINT AND HISTORY OF CHIEF COMPLAINT: Mr. Ling is a most pleasant, well known patient to me. He admitted to my office yesterday with complaint of worsening foot infection. At the time of his visit to my office, he was complaining of nausea, fever, and chills. His foot has severe odor. He had previously had an I and D performed in the office and started an oral antibiotic, which failed to resolve the issue. The infection has indeed worsened. PAST MEDICAL HISTORY: Diabetes and chronic renal disease. Nonhealing foot wound. He also has history of hypertension and stage III chronic kidney disease. CURRENT MEDICATIONS: Please see his med rec form. ALLERGIES: NO KNOWN DRUG ALLERGIES. SOCIAL HISTORY: The patient is a nonsmoker and nondrinker. PHYSICAL EXAMINATION: EXTREMITIES: Evaluation of the lower extremity vascular status, the patient has a mildly palpable pedal pulse and dorsalis pedis. Nonpalpable posterior tib. NEUROLOGICAL: He has a loss of protective sensation as evidenced by [place] monofilament testing. DERMATOLOGICAL: There is a very large abscessed area with gangrenous changes of the medial aspect of the foot and a bullous abscessed lesion with chronic wound. This wound measures approximately 4 cm in circumference by 2 cm in width and tracks deep to the capsular tissue. No bone is palpated through the plantar aspect of the wound, which was approximately 3 cm deep. MUSCULOSKELETAL: Positive for osteomyelitis or at least likely so based on radiographic evidence. MRI has been ordered, but not yet performed. DIAGNOSIS: Abscess cellulitis with probable osteomyelitis to the left foot. Awaiting MRI results to determine the degree and extent of bone infection. The patient is currently on IV antibiotics and vascular workup is being performed. Laboratory and culture results are well documented in the chart and Dr. Rodríguez will followup for Infectious Disease with Dr. Jane, Dr. Hayes, and Dr. Bernabe at this point. ANY Dumont/ARPIT /[id number]
[2018-06-08] MEDS: METOPROLOL SUCCINATE 50 MG TAB XL PO SCH (17:44)
[2018-06-08] MEDS: CEFEPIME 1GM/NS 0.9% 50 ML 50 ML IV SCH (19:09)
[2018-06-08] MEDS ORDERED: VANCOMYCIN HCL 1.5 GM in SODIUM CHLORIDE 0.9% 250ML 300 ML IV SCH (19:30)
[2018-06-08] MEDS: METRONIDAZOLE 500MG/NS 100ML 100 ML IV SCH (19:40)
--- NOTE | 2018-06-08 20:28 | NUR ---
RECEIVED PT IN BED AOX3 .NO ACUTE DISTRESS NOTED DENIES PAIN .LEFT FOOT DIABETIC ULCER .TEL SHOWS AFIB 18G S/LCALL LIGHT WITH IN REACH .CONTINUE TO MONITOR
[2018-06-08] MEDS: TAMOXIFEN CITRATE 10 MG TAB PO SCH (21:00)
[2018-06-08] MEDS: VANCOMYCIN HCL 1.5 GM in SODIUM CHLORIDE 0.9% 250ML 300 ML IV SCH (22:17)
[2018-06-09] VITALS (9 sets, daily range): BP systolic 112–137; BP diastolic 56–71
[2018-06-09] MEDS: METRONIDAZOLE 500MG/NS 100ML 100 ML IV SCH ×3 (02:00→17:27)
--- NOTE | 2018-06-09 02:01 | Consultation ---
DATE OF CONSULTATION: Consultation Note REASON FOR CONSULTATION: Infection of the left foot. HISTORY OF PRESENT ILLNESS: This patient is a very pleasant 78-year-old white male, who has history of diabetes mellitus and chronic kidney disease, who has been having left foot wound for few weeks. He has been getting wound care as an outpatient, but over the last couple of days, there is redness and swelling and also, there is black eschar noted in the foot. Dr. Haji sent the patient. He is admitted in the emergency room. The patient is currently lying in bed comfortably. PAST MEDICAL HISTORY: Diabetes mellitus, coronary artery disease, hypertension, and chronic kidney disease. PAST SURGICAL HISTORY: Denies. ALLERGIES: NKA. SOCIAL HISTORY: There is no smoking, drug abuse, or alcohol abuse. FAMILY HISTORY: Hypertension. LABORATORY DATA: Sodium 135, potassium 4.3, and creatinine 1.6. White count is 15.5 and hemoglobin 12. The patient was started on Zosyn. An x-ray of the foot was done, which shows soft tissue defect. PHYSICAL EXAMINATION: GENERAL: He is currently alert and oriented, does not seem to be in acute distress. VITAL SIGNS: Currently, afebrile. HEENT: No pallor or icteric. NECK: Supple. LUNGS: Clear. COR: S1 and S2 normal. ABDOMEN: Soft. Bowel sounds present. No tenderness. No . EXTREMITIES: No edema. To the left foot, there is redness and swelling, especially toward the first toe, but this involved the whole midfoot. There are also gangrenous changes noted at the base of the first toe. IMPRESSION: Abscess of the foot, cellulitis with gangrene, osteomyelitis. Agree with vancomycin. We will put patient on vancomycin and Zosyn; however, we will adjust for kidney function. We will do vancomycin 1 g q.24 hours. Follow trough. We will discontinue Zosyn and we will give him cefepime 1 g q.12 hours and Flagyl 500 IV q.8. Obtain MRI with no contrast. Surgical debridement. Vascular workup. We will follow with you. MD NAYELI Costello/ARPIT /[id number]
[2018-06-09] MEDS: CEFEPIME 1GM/NS 0.9% 50 ML 50 ML IV SCH ×2 (05:56→18:46)
--- NOTE | 2018-06-09 07:03 | NUR ---
PT RESTED DURING THE NIGHT DENIES PAIN .CALL LIGHT WITH IN REACH .CONTINUE TO MONITOR
--- NOTE | 2018-06-09 07:10 | NUR ---
PATIENT IN BED WITH HEAD OF BED ELEVATED WATCHING TV, NO RESPIRATORY DISTRESS OBSERVED. DRESSING TO LEFT FOOT WITH SMALL AMOUNT OF DRAINAGE. URINAL EMPTIED AND CLEANSED. BED IN LOWER POSITION, CALL LIGHT AT REACH.
[2018-06-09] MEDS: INSULIN LISPRO 100 UNIT/1 ML 3ML VIAL SQ SCH ×4 (07:30→21:00)
[2018-06-09] MEDS: PANTOPRAZOLE SOD 40 MG TABEC PO SCH ×2 (07:52→16:30)
[2018-06-09] MEDS: GLIPIZIDE 5 MG TAB PO SCH (07:52)
[2018-06-09] MEDS: DABIGATRAN ETEXILATE 75 MG CAP PO SCH ×2 (09:39→17:23)
[2018-06-09] MEDS: METOPROLOL SUCCINATE 50 MG TAB XL PO SCH ×2 (09:40→17:24)
--- NOTE | 2018-06-09 10:47 | Progress Note ---
DATE: 06/09/2018 SUBJECTIVE: The patient seen on rounds today, resting comfortably. He states he is feeling better. He has had less chills since admission. Review of the chart and clinical shows that his white count is trending down. The patient still has a limb-threatening infection on his left foot with abscess, cellulitis and osteomyelitis of the first metatarsophalangeal joint, probable septic arthritis. The MRI was not able to be completed due to the patient's status with his pacemaker. Apparently, Dr. Hayes has rounded and seen him and stated he was doing well. Dr. Jane and Dr. Rodríguez notes are appreciated as well. Physical evaluation of lower extremity, the patient remains with severe abscess, cellulitis and osteomyelitis, responding clinically to IV antibiotics, but still in need of I and D, deep wound debridement and probable amputation of the first metatarsophalangeal joint. Discussion ensued with the patient in detail and at this point my feeling is that with an amputation of the hallux and first metatarsophalangeal joint, will be able to create flaps that although primary closure is not possible, will create a scenario that can allow for healing over a wound VAC over a period of time. It is unlikely that to achieve adequate debridement and leave the hallux in place would heal as well. The patient has agreed to accept all risks inherent to the procedure and has agreed to amputation with deep wound debridement, I and D tomorrow, all tissue will be sent to pathology for further culture, sensitivity, and determination of the extent of osteomyelitis. The patient has been consented and will have surgery in the morning. Continue IV antibiotics and local wound care. ANY Dumont/ARPIT /[id number]
--- NOTE | 2018-06-09 12:00 | NUR ---
DRESSING CHANGED TO LEFT FOOT ORDERED. PATIENT TOLERATED PROCEDURE WELL. IN BED WITH CALL LIGHT AT REACH.
--- NOTE | 2018-06-09 15:32 | NUR ---
WALKING ROUND MADE. PATIENT OUT OF BED TO CHAIR, URINAL EMPTIED AND CLEANSED, ALL PERSONAL ITEMS CLOSE, CALL LIGHT AT EASY REACH.
[2018-06-09] MEDS ORDERED: NIFEDIPINE CR 30 MG TAB PO SCH (18:25)
--- NOTE | 2018-06-09 19:52 | NUR ---
PT RESTING NO ACUTE DISTRESS NOTED .LEFT FOOT WITH THE DRESSING DENIES PAIN .CALL LIGHT WITH REACH .PT IS NPO AFTER MIDNIGHTFOR THE LEFT LEG AMPUTATION
[2018-06-09] MEDS: VANCOMYCIN HCL 1.5 GM in SODIUM CHLORIDE 0.9% 250ML 300 ML IV SCH (21:55)
[2018-06-10] VITALS (8 sets, daily range): BP systolic 96–125; BP diastolic 55–67
[2018-06-10] MEDS: METRONIDAZOLE 500MG/NS 100ML 100 ML IV SCH ×3 (02:00→18:37)
[2018-06-10] MEDS: CEFEPIME 1GM/NS 0.9% 50 ML 50 ML IV SCH ×2 (05:37→17:45)
[2018-06-10] MEDS ORDERED: BUPIVACAINE HCL 0.5% INJ 30 ML VIAL INJ ONE (06:59)
[2018-06-10] MEDS ORDERED: BACITRACIN 50,000 UNIT VIAL ONE (07:00)
--- NOTE | 2018-06-10 07:04 | NUR ---
PT IS NPO FOR SURGERY .FAMILY AT THE BEDSIDE .REPORT GIVEN TO THE ON COMING NURSE
[2018-06-10] MEDS: PANTOPRAZOLE SOD 40 MG TABEC PO SCH ×2 (07:30→16:55)
[2018-06-10] MEDS: INSULIN LISPRO 100 UNIT/1 ML 3ML VIAL SQ SCH ×4 (07:30→21:30)
[2018-06-10] MEDS: GLIPIZIDE 5 MG TAB PO SCH (08:00)
[2018-06-10] MEDS: DABIGATRAN ETEXILATE 75 MG CAP PO SCH ×2 (10:00→16:55)
[2018-06-10] MEDS: METOPROLOL SUCCINATE 50 MG TAB XL PO SCH ×2 (10:00→16:56)
--- NOTE | 2018-06-10 10:30 | NUR ---
RECD PT FROM RECOVERY VIA BED AAOX3,DENIES PAIN,NO DISTRESS NOTED.DRSG TO RT FOOT CD&I
--- NOTE | 2018-06-10 10:52 | Operative Report ---
DATE OF PROCEDURE: 06/10/2018 SURGEON: Tariq Haji DPM PREOPERATIVE DIAGNOSES: Osteomyelitis, septic arthritis, and abscess cellulitis of the first metatarsophalangeal joint area of the left foot. POSTOPERATIVE DIAGNOSES: Osteomyelitis, septic arthritis, and abscess cellulitis of the first metatarsophalangeal joint area of the left foot. TITLE OF THE OPERATION: Amputation of first metatarsal and hallux of left foot with deep wound debridement and partial flap closure. PROCEDURE IN DETAIL: The patient was taken to the operating room in a moderately sedated state and placed upon the operating room table in supine position. Following induction of general anesthetic, the left lower extremity was elevated to 60 degrees to exsanguinate and the appropriate sterile prep was performed. The patient was placed upon the operating table prior to performing the following procedure. Procedure is amputation of the first metatarsophalangeal joint and hallux. A linear incision was made overlying the first metatarsophalangeal joint. Significant amount of purulent exudate was extruded into the wound. There was a gangrenous cap on the medial aspect, which was debrided and all necrotic tissue underlying were removed. A search for viable tissue to possibly allow for debridement and maintenance of the hallux was performed and it was determined that there was no way to save the hallux given the extent of the infection and the particular distribution. Circumferentially around the hallux, a hockey stick shaped incision was performed. A significant amount of tissue had to be removed medially as well. The dissection was carried down to the midshaft of the bone and a iebtngz-bcl-kqszubd bone cut was made to remove the entirety of the hallux and first metatarsal. Sesamoid apparatus was removed as well. Significant necrotic tissue was found with foul odor and necrotic wound debris circumferentially around the joint after removal, multiple bleeders were electrocoagulated and Simpulse was used with antibiotics to wash and cleanse the area. Due to the extent of the wound, measuring approximately 9 cm x 4 cm x 3 cm deep, an intraoperative decision was made to perform a partial flap closure to reapproximate as much as the tissue as possible, packing open the remainder of the wound. So, partial flap closure was performed over the bone proximally allowing for significant drainage distally and proximally and a partial flap closure was performed distally to cover the area of gaping where the hallux had been removed. A significant amount of half-inch iodoform was used then to pack the central void, the distal void, and the proximal void. It was then noted that he had another portal into that same area underneath the sesamoid existed. This was excised and packed as well. No purulence was found from that area due to the cleaning from the tissues above. This having been accomplished and flap noted to be viable with regard to capillary refill, the appropriate mildly compressive dressings were applied. All bleeding had been controlled. The patient lost approximately 30 mL of blood and left the operating room with vital signs stable in apparent satisfactory condition having tolerated both the anesthetic and procedure very well. He will be transported back to the floor for continued IV antibiotic and medical observation and stabilization. It is expected that he will need to go home on long-term IV antibiotics. ANY Dumont/ARPIT /[id number]
--- NOTE | 2018-06-10 14:20 | NUR ---
PT ASSISTED UP TO CHAIR TOLERATED WELL,YANICK CD&I DENIES LAUREN
[2018-06-10] MEDS ORDERED: LIDOCAINE HCL 2% LOCAL INJ 5 ML SDV VIAL INJ ONE (15:22)
[2018-06-10] MEDS ORDERED: ONDANSETRON HCL INJ 2MG/ML 2ML 2 MG/ML VIAL ONE (15:22)
[2018-06-10] MEDS ORDERED: SEVOFLURANE INHAL SOLN 250 ML PEN BTL ONE (15:22)
[2018-06-10] MEDS ORDERED: PROPOFOL IV EMULSION 10 MG/ML 20 ML VIAL ONE (15:22)
--- NOTE | 2018-06-10 16:42 | NUR ---
WOUND CARE CONSULTATION - FOLLOW UP Patient admitted to ER from Home with worsening foot ulcer to left foot. DX: Infected DFU to Left Foot. 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 PVD. - Patient followed by Dr Haji DPM outpatient & inpatient - Dr. Rodríguez on case for IV ABX. - X-ray Left Foot - Concerning for OM+ of 1st Met. - MRI- - Wound Culture of Left Foot Wound - awaiting results. - Wound care consulted for left foot ulcer evaluation and recommendation. -S/P amputation of left hallux & first MPJ 06/10/[address] Haji. PATIENT VISIT: - Pleasant 78 y/0 male in bed with family at bedside - Left Foot - Surgical Dressing in place from procedure today with post op shoe. CDI. No Bleeding/ Strikethrough. - Deferred removing surgical dressing. Plan for VAC Placement. - Denies pain IMPRESSION; Left Foot - S/P amputation of left hallux & first MPJ RECOMMENDATION: Surgical Dressing in Place. Reinforce as needed until First Dressing removed by Dr Haji. IV ABX per Dr. Rodríguez. 1. Left Foot- Great Toe To 1st Metatarsal Head- Reinforce Surgical Dressing As needed for Strikethrough or Bleeding. 2. NWB Left Foot. 3. Offload Heels with Pillows while in Bed 4. Encourage patient to turn and reposition q2h. Thank you for consulting with Wound Care. Addendum: 06/10/18 at 1651 by Spike Patel RN Amended: Links added.
--- NOTE | 2018-06-10 16:44 | NUR ---
CASE MANAGEMENT INITIAL ASSESSMENT Rn Employee [employer] to bedside to discuss plan of care with patient/family. CM/SW role and care transitions discussed. Anticipated discharge plan discussed along with duration of care. CM/SW discussed patients right to make decisions in care. CM/SW work hours given. Patient lives: W Admit/Transfer: ER Hospital/ER visits since last admit: NONE POA/Emergency contact: RUTH ANN / [phone] Current/Previous Home Health: NONE PCP/Follow-up Care: NAIN Current/Previous DME: PT SLEEPY; POST OP Other Services: Employment Status: Areas of Concerns: Referral Needs: Education Needs: IMM/FISHMAN given and signed (if applicable): Goal for discharge: RETURN HOME CM/SW left business card at the bedside with contact information. Name and number was also written on the patients whiteboard. Patient verbalized understanding of discussion. CM will follow-up with ongoing discharge and transition of care needs.
--- NOTE | 2018-06-10 17:37 | NUR ---
PT UP IN BED,DENIES PAIN,LT ELEATED ON PILLOW
[2018-06-10] MEDS ORDERED: FENTANYL CITRATE/PF 100MCG/2 ML INJ ONE (18:18)
--- NOTE | 2018-06-10 19:05 | NUR ---
Completed bedside report with morning nurse. Pt alert and orient to name. Pt lying in bed HOB 45 degrees. Denies pain at this time. No acute distress noted. Call greenberg within reach. Will continue to monitor.
[2018-06-10] MEDS: VANCOMYCIN HCL 1.5 GM in SODIUM CHLORIDE 0.9% 250ML 300 ML IV SCH (21:30)
[2018-06-11] VITALS (8 sets, daily range): BP systolic 105–160; BP diastolic 61–92
--- NOTE | 2018-06-11 00:15 | NUR ---
IV INFILTRATED 20G LEFT HAND, REMOVED IV APPLIED WARM COMPRESS. NEW 20G IV STARTED LEFT AC, X2 STICKS, PT TOLERATED WELL, FLUSHED WITH 10ML NS.
[2018-06-11] MEDS: METRONIDAZOLE 500MG/NS 100ML 100 ML IV SCH ×3 (02:26→18:15)
[2018-06-11] MEDS: CEFEPIME 1GM/NS 0.9% 50 ML 50 ML IV SCH ×2 (06:00→18:00)
--- NOTE | 2018-06-11 07:30 | NUR ---
PT IN BED SLEEPING NO DISTRESS NTOED.NO S/S DISCOMFORT.LT FOOT ELEVATED ON PILLOW
[2018-06-11] MEDS: GLIPIZIDE 5 MG TAB PO SCH (08:41)
[2018-06-11] MEDS: PANTOPRAZOLE SOD 40 MG TABEC PO SCH ×2 (08:41→16:30)
[2018-06-11] MEDS: METOPROLOL SUCCINATE 50 MG TAB XL PO SCH ×2 (08:42→17:00)
[2018-06-11] MEDS: INSULIN LISPRO 100 UNIT/1 ML 3ML VIAL SQ SCH ×4 (08:42→23:43)
[2018-06-11] MEDS: DABIGATRAN ETEXILATE 75 MG CAP PO SCH ×2 (08:42→17:00)
--- NOTE | 2018-06-11 18:16 | NUR ---
PT UP ON SIDE OF BED ,DENIES PAIN,YANICK CD&I
[2018-06-11] MEDS: VANCOMYCIN HCL 1.5 GM in SODIUM CHLORIDE 0.9% 250ML 300 ML IV SCH (23:43)
[2018-06-12] VITALS (8 sets, daily range): BP systolic 105–151; BP diastolic 60–85
[2018-06-12] MEDS: METRONIDAZOLE 500MG/NS 100ML 100 ML IV SCH ×3 (02:35→18:00)
[2018-06-12] MEDS: CEFEPIME 1GM/NS 0.9% 50 ML 50 ML IV SCH ×2 (05:38→17:45)
--- NOTE | 2018-06-12 07:25 | NUR ---
PT UP IN BED AWAKE ,DENIES PAIN DRSG TO LT FOOT CD&I,
[2018-06-12] MEDS: GLIPIZIDE 5 MG TAB PO SCH (07:30)
[2018-06-12] MEDS: INSULIN LISPRO 100 UNIT/1 ML 3ML VIAL SQ SCH ×4 (08:28→21:45)
[2018-06-12] MEDS: PANTOPRAZOLE SOD 40 MG TABEC PO SCH ×2 (08:28→17:00)
[2018-06-12] MEDS: METOPROLOL SUCCINATE 50 MG TAB XL PO SCH ×2 (08:28→17:00)
[2018-06-12] MEDS: DABIGATRAN ETEXILATE 75 MG CAP PO SCH ×2 (08:28→17:00)
--- NOTE | 2018-06-12 18:03 | NUR ---
PT UP IN BED ,LT LEG ELEVATED ON PILLOW,DENIES PAIN.
--- NOTE | 2018-06-12 19:00 | NUR ---
Completed bedside report with morning nurse. Pt alert and orient to name. Pt sitting in bed HOB 60 degrees. Denies pain at this time. Left foot elevated. No acute distress noted. Call greenberg within reach. Will continue to monitor.
[2018-06-12] MEDS: VANCOMYCIN HCL 1.5 GM in SODIUM CHLORIDE 0.9% 250ML 300 ML IV SCH (21:45)
[2018-06-13] VITALS (8 sets, daily range): BP systolic 114–147; BP diastolic 59–78
[2018-06-13] MEDS: METRONIDAZOLE 500MG/NS 100ML 100 ML IV SCH ×3 (01:52→18:35)
--- NOTE | 2018-06-13 05:21 | Consultation ---
DATE OF CONSULTATION: 06/08/2018 The patient was admitted on [address] Jane. HISTORY OF PRESENT ILLNESS: This 78-year-old patient was kindly referred for cardiovascular evaluation. The patient was admitted with cellulitis and abscess involving left great toe and metatarsophalangeal joint. He was followed by Dr. Tariq Haji, however, his condition worsened and he was sent to the emergency room and was admitted to the hospital. The patient also had a recent pacemaker implantation for sick sinus syndrome and lisa-tachy arrhythmia. He has chronic atrial fibrillation and pacemaker was implanted on 23 of May. The patient called on the 30 of May having the infection on his foot, was complaining of fever and chills, and I started the patient on 100 mg daily. He was then seen on the 02 of June for removal of his sutures. His pacemaker site appeared to be clean and normal, however, it was foot infection and causing complication with the pacemaker and he was advised to continue on his antibiotic, but now he is admitted to the hospital. He had arterial ultrasound study, which showed some nonobstructive arteriosclerotic plaques on the right side, but there was no flow impairment. On the left side was probably a total occlusion of the anterior tibial artery with the additional anterior tibial artery and dorsalis pedis artery filling via collaterals while the posterior tibial artery appeared to be showing some calcified plaques, but no significant stenosis. PAST MEDICAL HISTORY: The patient's past history reveals that he has long history of atrial flutter/fibrillation, he required ablation of the flutter in 2014, but had recurrent arrhythmia. The patient ablation procedure. It was difficult to manage medically because of his lisa-tachy syndrome and that is why he has recently required pacemaker implantation along with treatment of his rapid atrial fibrillation which required multiple hospitalizations in the past. The patient also had breast cancer on the right. He had surgery and chemotherapy by Dr. Ibarra. He also has history of bladder cancer. He has long history of diabetes and diabetic retinopathy and neuropathy. He has chronic renal insufficiency stage 3b. He has hyperlipidemia. He has Rios's esophagitis. He has chronic anemia. He also has history of carotid stenosis, which is followed closely with ultrasound. ALLERGIES: NO KNOWN. SOCIAL HISTORY: Negative. FAMILY HISTORY: The patient's mother of breast cancer. The patient's father of ruptured cerebral aneurysm, he also had history of hypertension and myocardial infarction. REVIEW OF SYSTEMS: The remainder of system revealed, the patient denies any headache or sore throat. The patient denies any cough or sputum production. The patient still has some fever and chills on arrival, but not having any chills, and he is feeling comfortable after he was started on intravenous antibiotic and local treatment of his left foot. The patient denies any chest pain. He has some palpitations. He is on telemetry. Denies any abdominal pain, nausea, or vomiting. PHYSICAL EXAMINATION: VITAL SIGNS: Reveals a blood pressure 100/60, temperature 96.7, oxygen saturation 96%. CHEST: Clear to auscultation. CARDIOVASCULAR: Normal apical impulse. The rhythm is irregularly irregular with rate of 100 per minute. There is no S3. ABDOMEN: Soft. There is no tenderness or organomegaly. EXTREMITIES: The left foot is bandaged all the way above the ankle, but there is no edema. NEUROLOGIC: Does not reveal any motor defect. LABORATORY DATA: Show a creatinine of 1.68, potassium is 4.3. White count is elevated 10,900. He has mild anemia with a hemoglobin of 11.2. Prothrombin time is 17.9. Bilirubin is 1.4. Telemetry shows atrial fibrillation with rate of 90 to 110 per minute with demand ventricular pacing. IMPRESSION: 1. Osteomyelitis with abscess of the left forefoot. 2. Sick sinus syndrome with permanent ventricular pacemaker. 3. Hypertensive cardiovascular disease. 4. Diabetes mellitus. 5. Chronic kidney disease. 6. Anemia. 7. PAD. The patient's ventricular rate is still accelerated and I would recommend to increase the patient's metoprolol succinate to twice daily and continue telemetry and anticoagulation if the patient requires surgery, mostly likely is indicated. He is clear for surgery. Mahin Hayes MD [facility]/MODL /[id number]
[2018-06-13] MEDS: CEFEPIME 1GM/NS 0.9% 50 ML 50 ML IV SCH ×2 (06:12→17:52)
--- NOTE | 2018-06-13 07:02 | NUR ---
RECEIVED REPORT FROM NIGHT NURSE, WALKING ROUNDS COMPLETED. PATIENT IS RESTING IN BED. RESPIRATIONS EVEN AND UNLABORED, NO ACUTE DISTRESS NOTED. CALL LIGHT WITHIN REACH. BED IN THE LOWEST POSITION.
[2018-06-13] MEDS: INSULIN LISPRO 100 UNIT/1 ML 3ML VIAL SQ SCH ×4 (07:30→21:31)
[2018-06-13] MEDS: PANTOPRAZOLE SOD 40 MG TABEC PO SCH ×2 (09:05→17:51)
[2018-06-13] MEDS: GLIPIZIDE 5 MG TAB PO SCH (09:05)
[2018-06-13] MEDS: METOPROLOL SUCCINATE 50 MG TAB XL PO SCH (09:05)
[2018-06-13] MEDS: DABIGATRAN ETEXILATE 75 MG CAP PO SCH ×2 (09:05→17:52)
--- NOTE | 2018-06-13 09:50 | NUR ---
EDUCATED ABOUT IMM, SIGNED, FILED IN CHART, WITH COPY LEFT WITH FAMILY AT BEDSIDE.
[2018-06-13 11:13] LABS: BASOPHILS # (AUTO) 0.1 (0.0-0.1); BASOPHILS % 0.7 % (0.0-1.0); EOSINOPHILS # (AUTO) 0.3 (0.0-0.4); EOSINOPHILS % 3.6 % (0.0-6.0); HEMATOCRIT 36.6 % (38.2-49.6); HEMOGLOBIN 11.9 g/dL (14.0-18.0); LYMPHOCYTES % 12.5 % (18.0-39.1); MEAN CORPUSCULAR HEMOGLOBIN 31.3 pg (28-32); MEAN CORPUSCULAR HGB CONC 32.5 g/dL (31-35); MEAN CORPUSCULAR VOLUME 96.3 fL (81-99); MONOCYTES # (AUTO) 0.7 (0.2-0.8); MONOCYTES % 7.8 % (4.4-11.3); NEUTROPHILS # (AUTO) 6.2 (2.1-6.9); NEUTROPHILS % 73.8 % (38.7-80.0); PLATELET COUNT 384 x10e3/uL (140-360)
[2018-06-13 11:22] LABS: INR 1.19; PARTIAL THROMBOPLASTIN TIME 22.5 seconds (23.8-35.5); PROTHROMBIN TIME 15.7 seconds (11.9-14.5)
[2018-06-13 12:15] LABS: ANION GAP 10.5 mmol/L (8-16); CALCIUM 9.1 mg/dL (8.4-10.2); CREATININE, SERUM 1.3 mg/dL (0.72-1.25); POTASSIUM 4.5 mmol/L (3.5-5.1)
[2018-06-13] MEDS: METOPROLOL TARTRATE 50 MG TAB PO SCH ×2 (13:26→17:52)
[2018-06-13] MEDS: FUROSEMIDE 20 MG TAB PO SCH (13:27)
--- NOTE | 2018-06-13 15:10 | NUR ---
PER DR. WOLF CHANGE PICC LINE ORDER TO CENTRAL LINE DUE TO PATIENT HAVING PACEMAKER AND RIGHT LIMB ALERT.
--- NOTE | 2018-06-13 17:27 | NUR ---
Nutrition Screen Note RD Recommendation for Physician: -Continue ADA diet as ordered Plan of Care: Patient has been screened and assessed for nutrition risk. At this time, the patient does not pose any nutrition risk. No further nutrition intervention is warranted at this time. Will re-evaluate if consulted by medical staff. Nutrition reason for involvement: LOS Primary Diagnose(s): Osteomyelitis with abscess of the left forefoot. PMH: diabetes, hypertension, and chronic kidney disease stage 3. Ht: 74in Wt: 215lb BMI: 27.6kg/m2 IBW: 190lb RD Assessment: (06/13) Chart reviewed. Labs and meds reviewed. 78yo M, who was admitted for non-healing L foot wound. HbA1c at 9.3%. BG 120 220. On IV lasix and insulin. Visited pt in the room. Pt reported fair appetite with 75-100% meal intake since admission. No GI complains noted. 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 No chewing or swallowing difficulty reported. Will continue to monitor and follow. Current Diet: ADA diet Malnutrition Evaluation (06/13) The patient does not meet criteria for a specified degree of malnutrition at this time. Will re-evaluate at follow-up as appropriate. Diet Education Needs Assessment: Diet education not indicated. Nutrition Care Level: low Signed: Citlaly Courtney, MS, RD, LD
--- NOTE | 2018-06-13 19:05 | Progress Note ---
DATE: The patient is seen today 4 days status post amputation of the left 1st metatarsal and hallux with flap closure and packing. The left foot is in surgical dressings, which were removed today and packing removed. The wound base is irrigated, some early granular tissue is noted. The wound is packed open lightly and I would recommend a wound VAC to start closure as this wound is actually quite significant and deep to bone. Wound VAC is ordered and the patient is on IV antibiotics for [address] Rodríguez. He is okay to go when VAC is placed, otherwise remain in-house for PICC line and IV antibiotics. ANY Dumont/ARPIT /[id number]
--- NOTE | 2018-06-13 19:24 | NUR ---
REPORT GIVEN TO ONCOMING NURSE, WALKING ROUNDS DONE. PATIENT IS RESTING IN BED. NO ACUTE DISTRESS NOTED, NO SOB. CALL LIGHT WITHIN REACH. BED IN THE LOWEST POSITION.
--- NOTE | 2018-06-13 19:29 | NUR ---
PT IS RESTING IN BED. NO RESPIRATORY DISTRESS NOTED. BED IN THE LOWEST POSITION, LOCKED, AND CALL LIGHT WITHIN REACH. WILL CONTINUE TO MONITOR.
[2018-06-13] MEDS: VANCOMYCIN HCL 1.5 GM in SODIUM CHLORIDE 0.9% 250ML 300 ML IV SCH (21:31)
[2018-06-14] VITALS (7 sets, daily range): BP systolic 113–136; BP diastolic 65–80
[2018-06-14] MEDS: METRONIDAZOLE 500MG/NS 100ML 100 ML IV SCH ×3 (01:07→17:36)
[2018-06-14] MEDS: CEFEPIME 1GM/NS 0.9% 50 ML 50 ML IV SCH ×2 (06:14→17:00)
--- NOTE | 2018-06-14 07:05 | NUR ---
Received patient resting in bed, no acute distress noted. Denies pain or discomfort. Call light within reach, bed in the lowest position.
[2018-06-14] MEDS: INSULIN LISPRO 100 UNIT/1 ML 3ML VIAL SQ SCH ×4 (07:30→21:26)
[2018-06-14] MEDS ORDERED: SODIUM CHLORIDE 0.9% 250ML 250 ML ONE (09:12)
[2018-06-14] MEDS: GLIPIZIDE 5 MG TAB PO SCH (09:24)
[2018-06-14] MEDS: PANTOPRAZOLE SOD 40 MG TABEC PO SCH ×2 (09:24→16:34)
[2018-06-14] MEDS: METOPROLOL TARTRATE 50 MG TAB PO SCH ×2 (09:25→16:35)
[2018-06-14] MEDS: DABIGATRAN ETEXILATE 75 MG CAP PO SCH ×2 (09:25→16:35)
[2018-06-14] MEDS: FUROSEMIDE 20 MG TAB PO SCH (09:25)
--- NOTE | 2018-06-14 14:29 | NUR ---
WOUND CARE CONSULTATION - FOLLOW UP with VAC PLACEMENT Patient admitted to ER from Home with worsening foot ulcer to left foot. DX: Infected DFU to Left Foot. 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 PVD. - Patient followed by Dr Haji DPM outpatient & inpatient - Dr. Rodríguez on case for IV ABX. - X-ray Left Foot - Concerning for OM+ of 1st Met. - MRI- - Wound Culture of Left Foot Wound - awaiting results. - Wound care consulted for left foot ulcer evaluation and recommendation. -S/P amputation of left hallux & first MPJ 06/10/[address] Haji. - Orders for Starting NPWT for today PATIENT VISIT: - Pleasant 78 y/0 male in good spirits - Left Foot - Dressing in place from procedure today with post op shoe. CDI. No Bleeding/ Strikethrough. - VAC Placed today. Wound measurements on provided on Wound Assessment note linked to this note. - Denies pain/ Discomfort. Tolerated procedure well. - Reviewed functions of NPWT and upkeep while therapy active. Patient verbalized understanding and has had prior experience with a VAC in the past. IMPRESSION: Left Foot - S/P amputation of left hallux & first MPJ. Clean healthy wound bed with tendon visible at base of wound. DL Adaptec to base and applied NPWT-125mmHG Continuously as prescribed. RECOMMENDATION: Continue Current Treatment plan by Dr. Haji. cont. IV ABX per Dr. Rodríguez. 1. Left Foot- Great Toe To 1st Metatarsal Head- NPWT-125mmHG Continuous. Change TIW. 2. continue NWB Left Foot. 3. Offload Heels with Pillows while in Bed 4. Encourage patient to turn and reposition q2h. Thank you for consulting with Wound Care. Addendum: 06/14/18 at 1435 by Spike Patel RN Amended: Links added.
--- NOTE | 2018-06-14 16:29 | NUR ---
PLAN DC THIS WEDNESDAY PT REQUESTING [facility] OP [facility]OUND [facility]ARE [phone] ARRANGEMENTS MADE FOR IV ABX AT DR RODRIGUEZ'S [facility]ION [address] SPOKE WITH MADDI AT DR MARTINEZ TO CONFIRM THAT ABX ARE APPROVED PT NEEDS TUNNEL CATH HOWEVER UNABLE TO DO TODAY DUE TO LENGTH CONTROL TESTER SCHEDULE ANIKA WITH WOUND CARE ORDERING HOME WOUND VAC
--- NOTE | 2018-06-14 17:19 | Diagnostic Imaging Report ---
Exam: Limited ultrasound of the right neck dated 06/14/2018 History: Patient in need of long-term IV access for antibiotic administration secondary to a left foot infection. Comparison: None available Findings:Preliminary evaluation of the right neck and right internal jugular vein shows patency. The right internal jugular vein is freely compressible. Following discussion with the patient it is learned that he will need long-term IV access for long-term antibiotics. The original order was for a right IJ central line. PICC line was felt to be contraindicated due to the presence of a left subclavian pacemaker and right side contraindicated for PICC placement due to a mastectomy on the right side. Therefore after discussion with the patient the best approach would be a tunneled PICC line from a right IJ approach. [facility] facility is not available at this time where it should be performed. He will be scheduled for the next available date. Impression: Patent right internal jugular vein. Signed by: Dr. Jorge Shay DO on 06/14/2018 5:16 PM
--- NOTE | 2018-06-14 19:38 | NUR ---
REPORT GIVEN TO ONCOMING NURSE, PATIENT IS RESTING IN BED. NO ACUTE DISTRESS NOTED. CALL LIGHT WITHIN REACH. BED IN THE LOWEST POSITION.
[2018-06-14] MEDS: VANCOMYCIN HCL 1.5 GM in SODIUM CHLORIDE 0.9% 250ML 300 ML IV SCH (21:30)
--- NOTE | 2018-06-14 23:08 | Progress Note ---
DATE: 06/14/2018 SUBJECTIVE: The patient was seen tonight, feeling well. Wound VAC has been applied. Unfortunately, he did not get his indwelling catheter today. Review of the Radiology note shows a tunneled catheter to his right jugular vein, double lumen is recommended. Apparently, this has been rescheduled for the catholic priest for tomorrow. The patient otherwise is doing well. VAC placement is intact and appropriate. Labs are otherwise unremarkable. We will continue to follow him on an outpatient basis once discharged, continuing with IV antibiotics via Dr. Rodríguez's outpatient therapy once discharged with IV access in place. ANY Dumont/ARPIT /[id number]
[2018-06-15] VITALS (7 sets, daily range): BP systolic 116–146; BP diastolic 69–84
[2018-06-15] MEDS: METRONIDAZOLE 500MG/NS 100ML 100 ML IV SCH ×2 (01:14→09:48)
[2018-06-15] MEDS: CEFEPIME 1GM/NS 0.9% 50 ML 50 ML IV SCH ×2 (05:04→17:20)
--- NOTE | 2018-06-15 07:25 | NUR ---
PT UP IN BED NO DISTRESS NOTED ,DENIES PAIN,WOUND VAC IN [place],MINIMUAL DRAINAGE.
[2018-06-15] MEDS: INSULIN LISPRO 100 UNIT/1 ML 3ML VIAL SQ SCH ×4 (07:30→21:02)
[2018-06-15] MEDS: PANTOPRAZOLE SOD 40 MG TABEC PO SCH ×2 (08:27→17:32)
[2018-06-15] MEDS: FUROSEMIDE 20 MG TAB PO SCH (08:27)
[2018-06-15] MEDS: GLIPIZIDE 5 MG TAB PO SCH (08:27)
[2018-06-15] MEDS: DABIGATRAN ETEXILATE 75 MG CAP PO SCH ×2 (08:28→17:00)
[2018-06-15] MEDS: METOPROLOL TARTRATE 50 MG TAB PO SCH ×2 (09:48→17:00)
--- NOTE | 2018-06-15 12:30 | NUR ---
CM SPOKE TO PATIENT AT BEDSIDE REGARDING IMM LETTER. IMM LETTER GIVEN WITH EXPLANATION. ORIGINAL SIGNED AND PLACED IN CHART; COPY OF ORIGINAL DOCUMENT GIVEN TO PATIENT AT BEDSIDE AND PLACED IN CARE TRANSITION FOLDER. CM CONTACT INFORMATION GIVEN TO PATIENT FOR ANY NEEDS OR CONCERNS. PATIENT WITH NO FURTHER QUESTIONS.
--- NOTE | 2018-06-15 16:25 | Progress Note ---
DATE: 06/15/2018 SUBJECTIVE: The patient seen today on rounds, doing well, sprits high, anxious for discharge, however, as of yet he has no indwelling catheter for IV antibiotics. Apparently scheduled for later today. The patient is awaiting for the disposition with from Director Of Vocational Guidance, otherwise has plan set for IV administration of antibiotics via Dr. Rodríguez's office and wound VAC changes via outpatient wound care center. He will need to follow with me within 1 week of discharge. VAC is intact and functioning properly on rounds today. ANY Dumont/ARPIT /[id number]
--- NOTE | 2018-06-15 16:35 | NUR ---
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
--- NOTE | 2018-06-15 17:34 | NUR ---
pt up in bed ,denies pain,,wound vac in place,
[2018-06-15] MEDS: VANCOMYCIN HCL 1.5 GM in SODIUM CHLORIDE 0.9% 250ML 300 ML IV SCH (21:39)
[2018-06-16] VITALS (7 sets, daily range): BP systolic 119–141; BP diastolic 57–78
[2018-06-16] MEDS: METRONIDAZOLE 500MG/NS 100ML 100 ML IV SCH ×3 (03:06→18:00)
--- NOTE | 2018-06-16 03:48 | NUR ---
06/15/2018: 1900: Received patient from day nurse, patient is alert and oriented x3. patient is currently on room air, saturating in the 90s, patient informed about change of shift and the plan of care for the night verbalized understanding. safety and fall precautions maintained as per hospital protocol: bed in lowest position and locked, needed items beside bed and call greenberg placed close to patient, patient instructed to use it to call nurses for any assistance needed, patient verbalized understanding. 2200: patient rounded and stable. 06/16/2018: 0000: patient rounded and stable, 0200: patient rounded and stable.
[2018-06-16] MEDS: CEFEPIME 1GM/NS 0.9% 50 ML 50 ML IV SCH ×2 (05:48→17:20)
--- NOTE | 2018-06-16 07:01 | NUR ---
patient endorsed to next shift for continuity of care.
--- NOTE | 2018-06-16 07:25 | NUR ---
PT UP IN BED ,DENIES PAIN,WOUND VAC IN PLACE.
[2018-06-16] MEDS: INSULIN LISPRO 100 UNIT/1 ML 3ML VIAL SQ SCH ×4 (07:30→20:29)
[2018-06-16] MEDS: GLIPIZIDE 5 MG TAB PO SCH (08:26)
[2018-06-16] MEDS: PANTOPRAZOLE SOD 40 MG TABEC PO SCH ×2 (08:26→17:18)
[2018-06-16] MEDS: METOPROLOL TARTRATE 50 MG TAB PO SCH ×2 (08:28→17:20)
[2018-06-16] MEDS: DABIGATRAN ETEXILATE 75 MG CAP PO SCH ×2 (08:28→17:20)
[2018-06-16] MEDS: FUROSEMIDE 20 MG TAB PO SCH (08:29)
--- NOTE | 2018-06-16 13:35 | NUR ---
SPOKE WITH DR LYNN WILL DO PROCEDURE TOMORROW.
--- NOTE | 2018-06-16 16:32 | NUR ---
PT HAS APPT AT DR RODRIGUEZ'S WEDNESDAY AT 2PM TO START IV ABX ALSO HAS APPT TUESDAY 06/20 AT 11 AM FOR [facility] SPOKE WITH ANIKA FROM WOUND CARE WHO STATES WOUND VAC APPROVED AND IS IN OP WC WILL APPLY VAC TOMORROW PRIOR TO DC
--- NOTE | 2018-06-16 18:07 | NUR ---
PT UP IN BED NO DISTRESS NTOED,DENIES PAIN,IV RESTARTED TO LT WRIST 20 GAUGE
--- NOTE | 2018-06-16 19:15 | NUR ---
patient received awake, alert, lying quietly in bed. no c/o pain noted. wound vac to left foot c,d,i. pm assessment complete. patient instructed to call for assistance when needed.
[2018-06-16] MEDS: VANCOMYCIN HCL 1.5 GM in SODIUM CHLORIDE 0.9% 250ML 300 ML IV SCH (21:00)
--- NOTE | 2018-06-16 21:00 | NUR ---
vancomycin trough 12.2. scheduled vancomycin 1.5 gms given per orders.
[2018-06-17] VITALS (7 sets, daily range): BP systolic 116–143; BP diastolic 66–90
[2018-06-17] MEDS: METRONIDAZOLE 500MG/NS 100ML 100 ML IV SCH ×3 (02:00→17:36)
[2018-06-17] MEDS: CEFEPIME 1GM/NS 0.9% 50 ML 50 ML IV SCH ×2 (05:22→18:44)
--- NOTE | 2018-06-17 07:12 | NUR ---
PATIENT ASSISTED TO THE RESTROOM AND BACK TO BED. WOUND VAC IN PLACE TO LEFT FOOT WITH DRESSING DRY AND INTACT. BED IN LOWER POSITION, CALL LIGHT AT REACH.
[2018-06-17] MEDS: INSULIN LISPRO 100 UNIT/1 ML 3ML VIAL SQ SCH ×4 (07:30→20:40)
[2018-06-17] MEDS: GLIPIZIDE 5 MG TAB PO SCH (07:30)
[2018-06-17] MEDS: PANTOPRAZOLE SOD 40 MG TABEC PO SCH ×2 (07:30→16:55)
--- NOTE | 2018-06-17 10:42 | NUR ---
SPOKE TO MD REGARDING THE PATIENT INABILITY TO HAVE A TUNNELLED CATHETER PLACE TODAY DUE TO PATIENT BEING ON PRADAXA. ORDER RECEIVED TO HOLD PRADAXA AND FEED PATIENT.
[2018-06-17] MEDS: METOPROLOL TARTRATE 50 MG TAB PO SCH ×2 (11:37→17:36)
[2018-06-17] MEDS: FUROSEMIDE 20 MG TAB PO SCH (11:37)
--- NOTE | 2018-06-17 13:14 | NUR ---
SPOKE WITH TEMO IN HOME CARE SCHEDULER REGARDING PATIENT CATHETER PLACED ON WEDNESDAY. SHE STATED THAT IT WILL BE DONE ON WEDNESDAY, BUT THE TIME IS NOT AVAILABLE YET.
--- NOTE | 2018-06-17 14:29 | NUR ---
WOUND CARE CONSULTATION - FOLLOW UP with VAC PLACEMENT Patient admitted to ER from Home with worsening foot ulcer to left foot. DX: Infected DFU to Left Foot. 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 PVD. - Patient followed by Dr Haji DPM outpatient & inpatient - Dr. Rodríguez on case for IV ABX. - X-ray Left Foot - Concerning for OM+ of 1st Met. - MRI- - Wound Culture of Left Foot Wound - awaiting results. - Wound care consulted for left foot ulcer evaluation and recommendation. -S/P amputation of left hallux & first MPJ 06/10/[address] Haji. PATIENT VISIT WITH VAC Placement: - Pleasant 78 y/0 male in good spirits, in bed. - Left Foot -CDI with VAC in place @ -125mmHG Continuous. No Bleeding/ Strikethrough. - VAC dressing change today. - Denies pain/ Discomfort. Tolerated procedure well. Mild bruising with exposed bone to proximal side. Wound measuring 6.5x2.5x3.2 cm - Dusky at first upon removal but gradually became beefy red granulation tissue troughout wound base. Wound base tendon 100% granular. No tendon visible. Goal now to granulate over bone area. - Care reviewed with Dr. Haji and Shai to decrease pressure to 100mmHg to prevent drying of bone. Okay to add single layer of adaptec at this time and re-evaluate on next dressing change. Light maceration present to periwound resolving within 5 min of leaving open to air during procedure. - Reviewed once again functions of NPWT and upkeep while therapy active. Patient verbalized understanding. IMPRESSION: Left Foot - S/P amputation of left hallux & first MPJ. Clean healthy wound bed with bone exposed at proximal side of wound. Muscle visible at base of wound. Single layer Adaptec to exposed bone and applied NPWT-100mmHG Continuously as prescribed. RECOMMENDATION: Continue Current Treatment plan by Dr. Haji. cont. IV ABX per Dr. Rodríguez. 1. Left Foot- Great Toe To 1st Metatarsal Head- NPWT-100mmHG Continuous. Change TIW. 2. continue NWB Left Foot. 3. Offload Heels with Pillows while in Bed 4. Encourage patient to turn and reposition q2h. Thank you for consulting with Wound Care. Addendum: 06/17/18 at 1437 by Spike Patel RN Amended: Links added.
--- NOTE | 2018-06-17 16:14 | NUR ---
DRESSING TO LEFT FOOT CHANGED BY WOUND CARE STAFF. IN BED WITH CALL LIGHT AT REACH.
--- NOTE | 2018-06-17 16:35 | NUR ---
TUNNEL CATH TODAY HAD TO BE POSTPONED PT IS ON PRADAXA PLAN TO RESCHEDULE ON WEDNESDAY CM CALLED DR RODRIGUEZ'S OFFICE AND CANCELLED APPT FOR TODAY; WILL RESCHEDULE ON WEDNESDAY CANCELLED PT'S WOUND CARE APPT FOR WEDNESDAY AM AND WILL RESCHEDULE FOR WED CM TO FOLLOW
--- NOTE | 2018-06-17 19:00 | NUR ---
patient received awake, alert, lying quietly in bed. no c/o pain noted. wound vac dressing to left foot c,d,i. pm assessment complete. patient instructed to call for assistance when needed.
[2018-06-17] MEDS: VANCOMYCIN HCL 1.5 GM in SODIUM CHLORIDE 0.9% 250ML 300 ML IV SCH (20:39)
[2018-06-18] VITALS (8 sets, daily range): BP systolic 103–149; BP diastolic 59–77
[2018-06-18] MEDS: METRONIDAZOLE 500MG/NS 100ML 100 ML IV SCH ×3 (01:15→18:40)
[2018-06-18] MEDS: CEFEPIME 1GM/NS 0.9% 50 ML 50 ML IV SCH (05:13)
--- NOTE | 2018-06-18 07:15 | NUR ---
PATIENT ASSISTED WITH URINAL, VOIDED 400CC OF CLEAR YELLOW URINE. ASSISTED BACK TO BED. DRESSING DRY AND INTACT TO LEFT FOOT WITH WOUND VAC IN PLACE. BED IN LOWER POSITION, CALL LIGHT AT REACH.
[2018-06-18] MEDS: INSULIN LISPRO 100 UNIT/1 ML 3ML VIAL SQ SCH ×4 (07:30→20:45)
[2018-06-18] MEDS: GLIPIZIDE 5 MG TAB PO SCH (07:49)
[2018-06-18] MEDS: PANTOPRAZOLE SOD 40 MG TABEC PO SCH ×2 (07:49→16:30)
[2018-06-18] MEDS: FUROSEMIDE 20 MG TAB PO SCH (09:40)
[2018-06-18] MEDS: METOPROLOL TARTRATE 50 MG TAB PO SCH ×2 (09:40→17:30)
--- NOTE | 2018-06-18 12:34 | Progress Note ---
DATE: SUBJECTIVE: The patient is here for osteomyelitis of the left foot status post amputation of left hallux and first metacarpophalangeal joint. The patient is currently afebrile. No nausea, vomiting, or diarrhea. The patient has no chest pain or shortness of breath. OBJECTIVE: VITAL SIGNS: Temperature is 97.6, pulse of 93, respiration of 20, blood pressure is 133/77. HEENT: Normocephalic, atraumatic. Pupils are reactive to light and accommodation. CVS: S1, S2 normal. Regular rate and rhythm. EXTREMITIES: Left lower extremity in bandage and also wound VAC is present. LABORATORY VALUES: The patient's white count is 8.35, hemoglobin of 11.9, hematocrit of 36.6. Chemistries, glucose is running high. Toxicology, vancomycin done on 06/16/2018 is 12.2, trough. Coags normal. ASSESSMENT: 1. Left foot osteomyelitis status post amputation of left hallux. 2. Uncontrolled diabetes mellitus. 3. Debility. 4. Hypertension. 5. Hyperlipidemia. PLAN: Plan is to continue on cefepime and metronidazole at this time. The patient does not have a central access. The patient is supposed to get a central line on Wednesday. Continue antibiotics. Check his cholesterol level and continue with insulin sliding scale and daily CV medications. MD GUME Acharya/MODL /[id number]
--- NOTE | 2018-06-18 14:38 | NUR ---
PATIENT SITTING AT BED SIDE TALKING TO FAMILY MEMBER VISITING, NO COMPLAIN VOICED. BED IN LOWER POSITION AND LOCKED. CALL LIGHT AT REACH.
--- NOTE | 2018-06-18 19:30 | NUR ---
patient received awake, alert, lying quietly in bed. no c/o pain noted. pm assessment complete. patient instructed to call for assistance when needed.
[2018-06-19] VITALS (8 sets, daily range): BP systolic 105–140; BP diastolic 56–80
--- NOTE | 2018-06-19 07:05 | NUR ---
PATIENT IN BED RESTING WITH EYES CLOSED, NO S/S OF DISCOMFORT NOTED. DRESSING DRY AND INTACT TO LEFT FOOT. BED IN LOWER POSITION, CALL LIGHT AT REACH.
[2018-06-19] MEDS: PANTOPRAZOLE SOD 40 MG TABEC PO SCH ×2 (07:30→16:30)
[2018-06-19] MEDS: INSULIN LISPRO 100 UNIT/1 ML 3ML VIAL SQ SCH ×4 (07:30→20:46)
[2018-06-19] MEDS: GLIPIZIDE 5 MG TAB PO SCH (07:30)
[2018-06-19] MEDS: FUROSEMIDE 20 MG TAB PO SCH (09:23)
[2018-06-19] MEDS: METOPROLOL TARTRATE 50 MG TAB PO SCH ×2 (09:24→17:26)
--- NOTE | 2018-06-19 11:14 | NUR ---
PATIENT ASSISTED TO THE RESTROOM AND BACK TO BED. HAD A LARGE BM. CALL LIGHT AT EASY REACH.
--- NOTE | 2018-06-19 16:07 | NUR ---
PATIENT SITTING UP IN BED WITH LEFT LEG ELEVATED ON PILLOW, DENIED PAIN. CALL LIGHT AT REACH.
--- NOTE | 2018-06-19 19:34 | NUR ---
RECEIVED PT IN BED SITTING WITH LEG ELEVATED WOUND VACU TO THE LEFT LEG .TELE SHOWS AFIB DENIES PAIN CALL SANZ WITH IN REACH .CONTINUE TO MONITOR
[2018-06-20] VITALS: BP 127/76
[2018-06-20 04:18] VITALS: BP 141/70
--- NOTE | 2018-06-20 07:18 | NUR ---
REPORT GIVEN TO THE ON COMING NURSE
[2018-06-20] MEDS: INSULIN LISPRO 100 UNIT/1 ML 3ML VIAL SQ SCH ×2 (07:30→12:08)
[2018-06-20 07:57] VITALS: BP 141/85
[2018-06-20 08:15] VITALS: BP 141/85
--- NOTE | 2018-06-20 08:15 | NUR ---
Pt received resting in bed. Alert and oriented x4. Pt is NPO for central line placement. Pt with left foot wound vac. Oriented to staff and surroundings, encouraged to press call greenberg if help needed. Emotional support given. Fall precautions maintained. Will monitor
[2018-06-20] MEDS ORDERED: FENTANYL CITRATE/PF 100MCG/2 ML INJ ONE (09:49)
[2018-06-20] MEDS ORDERED: MIDAZOLAM HCL 2 MG/2 ML VIAL ONE (09:49)
[2018-06-20] MEDS ORDERED: SODIUM CHLORIDE 0.9% 500ML 1,000 ML ONE (09:50)
[2018-06-20] MEDS ORDERED: LIDOCAINE HCL 2% LOCAL 20 ML VIAL ONE ×2 (09:50→11:06)
--- NOTE | 2018-06-20 09:55 | NUR ---
Pt left unit to clinical laboratory technician for central line placement
--- NOTE | 2018-06-20 11:30 | NUR ---
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
--- NOTE | 2018-06-20 11:43 | Diagnostic Imaging Report ---
Procedure: Tunneled right IJ double-lumen 6 Liberian PICC placement. Medications: Versed 2 mg intravenous, Fentanyl 50 mcg intravenous. The patient's vital signs, including pulse oximetry, were continuously monitored by the interventional radiology nurse. Sedation time was 30 minutes or less. Fluoroscopy time: 0.8 minutes. Dose area product: 147.8 cGycm2 Estimated blood loss: Minimal. Complications: No immediate. Procedure in detail: Informed consent for the procedure was obtained from the patient after discussion of risks and benefits. The right neck and upper chest was prepped and draped in the standard full barrier sterile technique. 1% lidocaine was administered into the skin and subcutaneous tissues of the right lower neck for local anesthesia. Then, under continuous sonographic guidance, a 21-gauge micropuncture needle was advanced into the right internal jugular vein. A 0.018 inch wire was advanced centrally under fluoroscopic guidance. The needle was then removed and access was secured with a micropuncture sheath. Attention was then turned to the right upper chest. A suitable catheter exit site was determined, approximately 3 fingerbreadths inferior to the clavicle. The skin was marked. 1% lidocaine was used to anesthetize a subcutaneous tract extending from the planned catheter exit site to the venotomy at the right lower neck. A stab incision was made on the right upper chest. Subsequently, the catheter was tunneled from the exit site of the right upper chest to the venotomy at the right lower neck. The retention cuff of the catheter was advanced into the subcutaneous tunnel. A 6-Liberian peel-away sheath was advanced over the wire under fluoroscopic guidance. The wire and inner dilator of the sheath were removed and the catheter was advanced through the peel-away sheath, which was then broken and removed. The catheter tip was positioned in the right atrium. Each catheter lumen showed good bidirectional flow. Each lumen was then flushed with saline. The catheter was secured at the exit site on the right upper chest with a 4-0 Vicryl pursestring suture. The venotomy at the right lower neck was closed with a single 4-0 Vicryl interrupted suture. Retention wings of the catheter were secured with 3-0 Ethilon. A sterile dressing was applied. The patient tolerated the procedure well without immediate complication. Impression: Successful placement of a tunneled right IJ dual-lumen 6 Liberian PICC line. Signed by: Dr. Jorge Shay DO on 06/20/2018 11:40 AM
[2018-06-20 12:00] VITALS: BP 119/74
[2018-06-20] MEDS: PANTOPRAZOLE SOD 40 MG TABEC PO SCH (12:07)
[2018-06-20] MEDS: GLIPIZIDE 5 MG TAB PO SCH (12:07)
[2018-06-20] MEDS: FUROSEMIDE 20 MG TAB PO SCH (12:07)
[2018-06-20] MEDS: METOPROLOL TARTRATE 50 MG TAB PO SCH (12:08)
--- NOTE | 2018-06-20 13:53 | NUR ---
WOUND CARE CONSULTATION - FOLLOW UP with VAC PLACEMENT Patient admitted to ER from Home with worsening foot ulcer to left foot. DX: Infected DFU to Left Foot. 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 PVD. - Patient followed by Dr Haji DPM outpatient & inpatient - Dr. Rodríguez on case for IV ABX.- Pt to follow up today at his office for IV ABX Therapy -S/P amputation of left hallux & first MPJ 06/10/[address] Haji. PATIENT VISIT WITH VAC Placement: - Pleasant 78 y/0 male - Left Foot -CDI with VAC in place @ -100 mmHg Continuous. No Bleeding/ Strikethrough. - VAC dressing change today. - Denies pain/ Discomfort. Tolerated procedure well. Mild bruising with exposed bone to proximal side. - Beefy red granulation tissue throughout wound base. Wound base 100% granular. No tendon visible. Exposed bone 1st Ray. - Light maceration present to periwound resolving with leaving open to air during procedure. - Reviewed NPWT and upkeep while therapy active. Patient verbalized understanding. IMPRESSION: Left Foot - S/P amputation of left hallux & first MPJ. Clean healthy wound bed with bone exposed at proximal side of wound. Muscle visible at base of wound. Single layer Adaptic to exposed bone and applied NPWT-100mmHG Continuously as prescribed. RECOMMENDATION: Continue Current Treatment plan by Dr. Haji. cont. IV ABX per Dr. Rodríguez. 1. Left Foot- Great Toe To 1st Metatarsal Head- NPWT-100mmHG Continuous. Change TIW. 2. continue NWB Left Foot. 3. Offload Heels with Pillows while in Bed 4. Encourage patient to turn and reposition q2h. - Patient to follow up at [facility] on Wednesday. Addendum: 06/20/18 at 1358 by Spike Patel RN Amended: Links added.
--- NOTE | 2018-06-20 14:19 | NUR ---
Pt and given discharge instructions regarding meds, diet, activities, and follow up appointment with Wound care, PCP, and Dr. Haji. Both verbalized understanding of teaching. Leaving floor in wheelchair to private car
--- NOTE | 2018-06-21 13:29 | Discharge Summary ---
DISCHARGE DIAGNOSIS: Osteomyelitis of the left foot. HISTORY OF PRESENT ILLNESS AND HOSPITAL COURSE: See hospital chart for full details. The patient is a gentleman, who presented with osteomyelitis of the left foot status post I and D by Dr. Haji. He was seen by Dr. Rodríguez, who also controlled the IV antibiotics. The patient initial changes, did have a wound VAC placed and at the time of discharge, the patient had a central line placed and said he can continue with the IV antibiotics as an outpatient with Dr. Rodríguez. Follow up in [address] to [address] Haji and Dr. Rodríguez as well as his primary care physician. Please see hospital chart for full details. MD JORDI Suazo/ARPIT /[id number]
--- NOTE | 2018-06-23 10:15 | Diagnostic Imaging Report ---
Procedure: Tunneled right IJ double-lumen 6 [place]ican PICC placement. Medications: Versed 2 mg intravenous, Fentanyl 50 mcg intravenous. The patient's vital signs, including pulse oximetry, were continuously monitored by the interventional radiology nurse. Sedation time was 30 minutes or less. Fluoroscopy time: 0.8 minutes. Dose area product: 147.8 cGycm2 Estimated blood loss: Minimal. Complications: No immediate. Procedure in detail: Informed consent for the procedure was obtained from the patient after discussion of risks and benefits. The right neck and upper chest was prepped and draped in the standard full barrier sterile technique. 1% lidocaine was administered into the skin and subcutaneous tissues of the right lower neck for local anesthesia. Then, under continuous sonographic guidance, a 21-gauge micropuncture needle was advanced into the right internal jugular vein. A 0.018 inch wire was advanced centrally under fluoroscopic guidance. The needle was then removed and access was secured with a micropuncture sheath. Attention was then turned to the right upper chest. A suitable catheter exit site was determined, approximately 3 fingerbreadths inferior to the clavicle. The skin was marked. 1% lidocaine was used to anesthetize a subcutaneous tract extending from the planned catheter exit site to the venotomy at the right lower neck. A stab incision was made on the right upper chest. Subsequently, the catheter was tunneled from the exit site of the right upper chest to the venotomy at the right lower neck. The retention cuff of the catheter was advanced into the subcutaneous tunnel. A 6-C[place]ican peel-away sheath was advanced over the wire under fluoroscopic guidance. The wire and inner dilator of the sheath were removed and the catheter was advanced through the peel-away sheath, which was then broken and removed. The catheter tip was positioned in the right atrium. Each catheter lumen showed good bidirectional flow. Each lumen was then flushed with saline. The catheter was secured at the exit site on the right upper chest with a 4-0 Vicryl pursestring suture. The venotomy at the right lower neck was closed with a single 4-0 Vicryl interrupted suture. Retention wings of the catheter were secured with 3-0 Ethilon. A sterile dressing was applied. The patient tolerated the procedure well without immediate complication. Impression: Successful placement of a tunneled right IJ dual-lumen 6 [place]ican PICC line. Signed by: Dr. Jorge Shay DO on 06/20/2018 11:40 AM
== END 2018-06-20 14:41 | disposition home or self-care (01) | DRG 854 ==
LOC: ER 21:27 → ERHOLD 06-07 00:37 → MED/SURG3 06-07 12:58
PROVIDERS: ADMIT Internal Medicine; ATTEND Internal Medicine
PROC: 0Y6Q0Z0 Detachment at Left 1st Toe, Complete, Open Approach (ICD-10-PCS; principal; 2018-06-10 07:32)
PROC: 0JXR0ZC Transfer Left Foot Subcutaneous Tissue and Fascia with Skin, Subcutaneous Tissue and Fascia, Open Approach (ICD-10-PCS; 2018-06-10 07:32)
PROC: B5181ZA Fluoroscopy of Superior Vena Cava using Low Osmolar Contrast, Guidance (ICD-10-PCS; 2018-06-14)
PROC: 0JH63XZ Insertion of Tunneled Vascular Access Device into Chest Subcutaneous Tissue and Fascia, Percutaneous Approach (ICD-10-PCS; 2018-06-20)
PROC: 02HV33Z Insertion of Infusion Device into Superior Vena Cava, Percutaneous Approach (ICD-10-PCS; 2018-06-20)
DX: A41.9 Sepsis, unspecified organism (principal); M86.8X7 Other osteomyelitis, ankle and foot; E11.52 Type 2 diabetes mellitus with diabetic peripheral angiopathy with gangrene; I96 Gangrene, not elsewhere classified; L02.612 Cutaneous abscess of left foot; L03.116 Cellulitis of left lower limb; E11.69 Type 2 diabetes mellitus with other specified complication; E11.22 Type 2 diabetes mellitus with diabetic chronic kidney disease; I13.10 Hypertensive heart and chronic kidney disease without heart failure, with stage 1 through stage 4 chronic kidney disease, or unspecified chronic kidney disease; N18.3 Chronic kidney disease, stage 3 (moderate); Z95.0 Presence of cardiac pacemaker; Z80.3 Family history of malignant neoplasm of breast; D64.9 Anemia, unspecified; Z79.4 Long term (current) use of insulin
CPT/HCPCS: 36415; 36558; 71045; 74470; 76937; 80048; 80053; 80202; 81001; 82550; 82553; 82948; 83036; 83605; 83735; 84484; 85025; 85610; 85651; 85730; 86140; 87040; 87071; 87075; 87205; 88305; 88311; 93005; 93925; 97605; 99284; C1769; J0692; J2001; J2250; J2405; J2543; J3370; J7030; J7040; J7050; Q4100

== ENCOUNTER 2018-07-07 02:00 | Outpatient (RCR) | payer MEDICARE, OTHER ==
[~2018-07-07 02:00] MED LIST changes: +DOXYCYCLINE HY100 MG PO; +METOPROLOL SUCC50 MG PO; +PRADAXA75 MG PO; +SULFAMETHOXAZO1 EAC1 PO
== END 2018-07-10 ==
LOC: WCC 02:00
PROVIDERS: ATTEND Family Medicine
DX: E11.621 Type 2 diabetes mellitus with foot ulcer (principal); B95.4 Other streptococcus as the cause of diseases classified elsewhere; L97.424 Non-pressure chronic ulcer of left heel and midfoot with necrosis of bone; M86.172 Other acute osteomyelitis, left ankle and foot; I10 Essential (primary) hypertension; I48.2 Chronic atrial fibrillation; N18.3 Chronic kidney disease, stage 3 (moderate)
CPT/HCPCS: 29581; 36415 ×9; 82948 ×9; 97605 ×5; 97607; 99203; 99213; G0277 ×10

== ENCOUNTER 2018-07-13 22:34 | Emergency (ER) | payer MEDICARE, OTHER ==
[~2018-07-13] VITALS: Ht 188 cm; Wt 97.1 kg
--- OUTSIDE RECORDS SUMMARY | 2018-07-13 22:39 | XMS REPORT | Clinical Summary ---
Author Author MARITZA AzumioSaint [facility]phons[facility] - NampaVirtual Event Bags [facility]ioSt[facility] Medical CenterNeomobileSt. Elizabeth Hospital Address Unknown Phone Unavailable Care Team Providers Care Process Designer Name Role Phone Pcp, No PCP Unavailable [...] Phone 2018 Hospital Pre-Admission Testing Encounter after 07/12/2017 Social History Date Tobacco Use Types Packs/Day [...] Taken Vital Sign Reading 04/14/2018 10:10 AM OFFICE CLERK ASSISTANT Blood Pressure 98/71 04/14/2018 10:10 AM OFFICE CLERK ASSISTANT Pulse 57 04/14/2018 9:40 AM OFFICE CLERK ASSISTANT Temperature 36.3 C (97.3 F) 04/14/2018 10:10 AM OFFICE CLERK ASSISTANT Respiratory Rate 22 04/14/2018 10:10 AM OFFICE CLERK ASSISTANT Oxygen Saturation 97% - Inhaled Oxygen - Concentration 04/14/2018 7:39 AM OFFICE CLERK ASSISTANT Weight 99.3 kg (218 lb 14.4 oz) 04/14/2018 7:39 AM OFFICE CLERK ASSISTANT Height 188 cm (6' 2") 04/14/2018 7:39 AM OFFICE CLERK ASSISTANT Body Mass Index 28.11 Plan of Treatment Not on file Procedures Comments Procedure Name Priority Date/Time Associated Diagnosis REPORT OF PROCEDURE - 04/14/2018 ENDOSCOPY URL 9:53 AM OFFICE CLERK ASSISTANT TISSUE EXAM AP Routine 04/14/2018 9:31 AM OFFICE CLERK ASSISTANT UPPER ENDOSCOPY 04/14/2018 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 Report [facility] Case: [id number] Authorizing Provider:John Sierra, Collected: 04/14/2018 0931 Ordering Location: [facility] ENDOSCOPY Received: 04/14/2018 1227 SERVICES Pathologist: Shayla Singh MD Specimens: A) - Biopsy, Gastroesophageal Junction, GE JUNCTION NODULE BX AT 42CM - R/O BARRETTS B) - Biopsy, Gastroesophageal Junction, GE JUNCTION BX AT 42CM - R/O BARRETTS C) - Biopsy, Esophagus, ESOPHAGUS BX AT 41CM - R/O BARRETTS DIAGNOSIS A. GASTROESOPHAGEAL JUNCTION, [facility] NODULE, BIOPSY AT 42 CM, [facility] BIOPSY: - PREDOMINANTLY FOVEOLAR EPITHELIUM WITH [...] VIRAL INCLUSION Signing Pathologist Direct Phone Line: [phone] COMMENT Endoscopic report reviewed. [facility] CPT Code(s) SJ/ew 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 GE junction nodule biopsy [facility] at 42 cm. B. GE junction [facility] biopsy at 42 cm. C. Esophagus biopsy at 41 cm GROSS DESCRIPTION Specimen is received in three [facility] containers of formalin all [facility] labeled with the patient's information. Specimen [...] submitted in C1. CG/ew MICROSCOPIC DESCRIPTION Performed [facility] SPECIAL STUDIES The interpretation of this [facility] case included the use of [facility] immunohistochemistry or special stains. Immunohistochemistry technical testing was performed at [facility], Pathology Laboratory where it was developed [...] - Biopsy, Gastroesophageal Junction Performing Organization Address City/[facility] Phone Number [facility] [address] [place] [address] [facility] * POC-Glucose meter (04/14/2018 7:50 AM OFFICE CLERK ASSISTANT) Only the most recent of 2 results within the time period is included. POC-Glucose Meter 179 (H)Comment: TESTED AT 70 - 110 mg/dL [facility] [address] [facility] [address] Specimen Blood Performing Organization Address City/[facility] Hospitalcode Phone Number [facility] [address] [place] [address] [facility] * REPORT OF PROCEDURE - ENDOSCOPY URL (02/10/2018 9:49 AM CDT) Narrative Performed At after 07/12/2017 Insurance Payer Benefit Subscriber ID Type Phone Address Plan / Group MEDICARE MEDICARE A xxxxxxxxxxx Medicare B MCR SUPPLEMENT/INDIVIDUAL GENERIC xxxxxxxxx [employer] MEDICARE SUPPLEMENT
== END 2018-07-14 01:23 | disposition left against medical advice (07) ==
LOC: ER 22:34
DX: Z48.01 Encounter for change or removal of surgical wound dressing (principal)

== ENCOUNTER → 2018-08-09 | Outpatient (RCR) | payer MEDICARE, OTHER | LOC: WCC 07-11 13:12 | PROVIDERS: ATTEND Family Medicine | DX: E11.621 Type 2 diabetes mellitus with foot ulcer (principal); M86.172 Other acute osteomyelitis, left ankle and foot; L97.424 Non-pressure chronic ulcer of left heel and midfoot with necrosis of bone; B95.4 Other streptococcus as the cause of diseases classified elsewhere; N18.3 Chronic kidney disease, stage 3 (moderate); I10 Essential (primary) hypertension; I48.2 Chronic atrial fibrillation | CPT/HCPCS: 36415 ×17; 82948 ×17; 97605 ×7; 97607; 99212 ×2; 99213; G0277 ×19 ==

== ENCOUNTER 2018-09-08 10:31 | Outpatient (RCR) | payer MEDICARE, OTHER ==
[~2018-09-08 10:31] MED LIST changes: +MINERAL OIL/PETROLAT/GLYCERI 6OZ BTL ONE
== END 2018-09-09 ==
LOC: WCC 10:31
PROVIDERS: ATTEND Family Medicine
DX: E11.621 Type 2 diabetes mellitus with foot ulcer (principal); M86.172 Other acute osteomyelitis, left ankle and foot; L97.424 Non-pressure chronic ulcer of left heel and midfoot with necrosis of bone; B95.4 Other streptococcus as the cause of diseases classified elsewhere; N18.3 Chronic kidney disease, stage 3 (moderate); I10 Essential (primary) hypertension; I48.2 Chronic atrial fibrillation
CPT/HCPCS: 36415 ×14; 82948 ×17; 97605 ×8; 99213; G0277 ×18

== ENCOUNTER 2018-10-07 11:38 | Outpatient (RCR) | payer MEDICARE, OTHER | END 2018-10-09 | LOC: WCC 11:38 | PROVIDERS: ATTEND Family Medicine | DX: E11.621 Type 2 diabetes mellitus with foot ulcer (principal); M86.172 Other acute osteomyelitis, left ankle and foot; L97.424 Non-pressure chronic ulcer of left heel and midfoot with necrosis of bone; B95.4 Other streptococcus as the cause of diseases classified elsewhere; N18.3 Chronic kidney disease, stage 3 (moderate); I10 Essential (primary) hypertension; I48.2 Chronic atrial fibrillation | CPT/HCPCS: 36415 ×11; 82948 ×11; 97605 ×8; 99213; G0277 ×12 ==

== ENCOUNTER → 2018-10-14 | Outpatient (CLI) | payer MEDICARE, OTHER ==
[~2018-10-14] MED LIST changes: -MINERAL OIL/PETROLAT/GLYCERI 6OZ BTL ONE
== END ==
LOC: WCC 13:21
PROVIDERS: ATTEND Family Medicine
DX: E11.621 Type 2 diabetes mellitus with foot ulcer (principal); M86.172 Other acute osteomyelitis, left ankle and foot; L97.424 Non-pressure chronic ulcer of left heel and midfoot with necrosis of bone; N18.3 Chronic kidney disease, stage 3 (moderate); I48.2 Chronic atrial fibrillation; I10 Essential (primary) hypertension

== ENCOUNTER 2018-10-31 11:25 | Outpatient (RCR) | payer MEDICARE, OTHER | END 2018-11-09 | LOC: WCC 11:25 | PROVIDERS: ATTEND Family Medicine | DX: E11.621 Type 2 diabetes mellitus with foot ulcer (principal); M86.172 Other acute osteomyelitis, left ankle and foot; L97.424 Non-pressure chronic ulcer of left heel and midfoot with necrosis of bone; N18.3 Chronic kidney disease, stage 3 (moderate); I10 Essential (primary) hypertension; I48.2 Chronic atrial fibrillation | CPT/HCPCS: 36415; 82948 ==

== ENCOUNTER 2018-12-05 12:48 | Outpatient (RCR) | payer MEDICARE, OTHER ==
[~2018-12-05 12:48] MED LIST changes: +MINERAL OIL/PETROLAT/GLYCERI 6OZ BTL ONE
== END 2018-12-10 ==
LOC: WCC 12:48
PROVIDERS: ATTEND Family Medicine
DX: E11.621 Type 2 diabetes mellitus with foot ulcer (principal); L97.424 Non-pressure chronic ulcer of left heel and midfoot with necrosis of bone; N18.3 Chronic kidney disease, stage 3 (moderate); I10 Essential (primary) hypertension; I48.2 Chronic atrial fibrillation
CPT/HCPCS: 36415; 82948

== ENCOUNTER 2018-12-22 15:19 | Outpatient (RCR) | payer MEDICARE, OTHER ==
[~2018-12-22 15:19] MED LIST changes: -MINERAL OIL/PETROLAT/GLYCERI 6OZ BTL ONE
== END 2019-01-09 ==
LOC: WCC 15:19
PROVIDERS: ATTEND Family Medicine
DX: E11.621 Type 2 diabetes mellitus with foot ulcer (principal); L97.424 Non-pressure chronic ulcer of left heel and midfoot with necrosis of bone; N18.3 Chronic kidney disease, stage 3 (moderate); I10 Essential (primary) hypertension; I48.2 Chronic atrial fibrillation

== ENCOUNTER → 2019-08-02 | Outpatient (CLI) | payer MEDICARE, OTHER ==
[~2019-08-02] MED LIST changes: +FUROSEMIDE40 MG PO; +LEVOFLOXAC500 MG/100 IV; +LEVOFLOXACIN250 MG PO; +ZINC50 MG PO
== END ==
LOC: CARD 08:53
PROVIDERS: ATTEND Internal Medicine Cardiovascular Disease
DX: M79.604 Pain in right leg (principal); M79.605 Pain in left leg; R22.43 Localized swelling, mass and lump, lower limb, bilateral
CPT/HCPCS: 93925; 93970

== ENCOUNTER 2019-08-11 07:35 | Inpatient (IN) | payer MEDICARE, OTHER ==
[2019-08-08 12:32] LABS: BASOPHILS # (AUTO) 0.1 (0.0-0.1); BASOPHILS % 0.5 % (0.0-1.0); EOSINOPHILS # (AUTO) 0.5 (0.0-0.4); EOSINOPHILS % 4.5 % (0.0-6.0); HEMATOCRIT 43.1 % (38.2-49.6); HEMOGLOBIN 14.1 g/dL (14.0-18.0); LYMPHOCYTES # (AUTO) 1.6 (1.0-3.2); LYMPHOCYTES % 14.5 % (18.0-39.1); MEAN CORPUSCULAR HEMOGLOBIN 31.5 pg (28-32); MEAN CORPUSCULAR HGB CONC 32.7 g/dL (31-35); MEAN CORPUSCULAR VOLUME 96.4 fL (81-99); MONOCYTES # (AUTO) 1.1 (0.2-0.8); MONOCYTES % 9.8 % (4.4-11.3); NEUTROPHILS # (AUTO) 7.9 (2.1-6.9); NEUTROPHILS % 70.2 % (38.7-80.0); PLATELET COUNT 254 x10e3/uL (140-360); RED BLOOD COUNT 4.47 x10e6/uL (4.3-5.7); RED CELL DISTRIBUTION WIDTH 14.8 % (11.7-14.4)
[2019-08-08 12:51] LABS: ANION GAP 14.1 mmol/L (8-16); CALCIUM 9.8 mg/dL (8.4-10.2); CREATININE, SERUM 2.11 mg/dL (0.72-1.25); POTASSIUM 4.1 mmol/L (3.5-5.1)
--- NOTE | 2019-08-08 12:52 | Diagnostic Imaging Report ---
EXAM: CHEST 2 VIEWS DATE: 08/08/2019 12:15 PM INDICATION: Preoperative evaluation COMPARISON: 06/06/2018 FINDINGS: Left-sided single lead pacing device identified in stable position. The trachea is midline. The lungs are symmetrically expanded without a large focal consolidation, pneumothorax, or significant pleural effusion. Stable subcentimeter calcified granulomas identified overlying the right midlung zone and left perihilar region. The cardiomediastinal silhouette is stable in appearance. Atherosclerotic calcifications noted within the aortic arch. Surgical clips again noted projecting over the right axilla. No acute osseous abnormality is identified. IMPRESSION: No acute cardiopulmonary process identified. Signed by: Dr. Amrit Hsu MD on 08/08/2019 12:49 PM
[~2019-08-11] VITALS: Ht 188 cm; Wt 100.7 kg
[2019-08-11] MEDS ORDERED: NEOSTIGMINE 1 MG/ML 10ML VIAL ONE (10:16)
[2019-08-11] MEDS ORDERED: BACITRACIN 50,000 UNIT VIAL ONE (13:23)
--- NOTE | 2019-08-11 13:44 | NUR ---
consult [id number]
[2019-08-11] MEDS ORDERED: PROMETHAZINE 25MG/ NS 50ML (IV) IV PRN (13:45)
[2019-08-11] MEDS ORDERED: HYDROCODONE/APAP 10MG-325MG TAB PO PRN (13:45)
[2019-08-11] MEDS ORDERED: HYDROCODONE/APAP 5MG-325MG TAB PO PRN (13:45)
[2019-08-11] MEDS ORDERED: BISMUTH SUBSALICYLATE 262 MG/15 ML 8OZ BTL PO PRN (13:45)
[2019-08-11] MEDS ORDERED: MAGNESIUM HYDROXIDE 30 ML UDC PO PRN (13:45)
[2019-08-11 14:00] VITALS: BP 117/62
[2019-08-11 14:39] VITALS: BP 117/62
[2019-08-11 14:45] VITALS: BP 117/62
--- NOTE | 2019-08-11 15:30 | Diagnostic Imaging Report ---
EXAMINATION: FOOT LEFT COMPLETE INDICATION: Soft tissue infection COMPARISON: Left foot radiographs 06/06/2018 FINDINGS: Postoperative findings of transmetatarsal amputation of the great toe and second toe amputation at the level of the base of the proximal phalanx. There is soft tissue ulceration at the amputation margin of the second toe with subcutaneous emphysema and erosive changes of the underlying second proximal phalanx base. No acute osseous injury. Alignment is anatomic. Prominent plantar calcaneal spur. IMPRESSION: Soft tissue ulceration at the amputated second toe with underlying osteopenia and erosive changes of the second optimal phalanx base. Underlying osteomyelitis cannot be excluded radiographically. Signed by: Chaparrita Cee MD on 08/11/2019 3:27 PM
--- NOTE | 2019-08-11 15:41 | NUR ---
Dr. Quiñones at the bedside for consult
--- NOTE | 2019-08-11 15:49 | NUR ---
per Dr. Quiñones, pt can not have PICC line due to left pacemaker and hx of right mastectomy. Dr. Quiñones requested that a IJ tunneled central line be ordered
[2019-08-11 16:00] VITALS: BP 121/64
[2019-08-11] MEDS ORDERED: SODIUM CHLORIDE 0.9% 500ML 500 ML ONE (16:02)
[2019-08-11] MEDS: CEFTRIAXONE SOD 1 GM/NS 50 ML 50 ML IV SCH (16:26)
[2019-08-11 16:33] LABS: INR 1.18; PROTHROMBIN TIME 15.8 seconds (11.9-14.5)
[2019-08-11 16:34] LABS: PARTIAL THROMBOPLASTIN TIME 33.6 seconds (23.8-35.5)
[2019-08-11] MEDS: LINEZOLID 600 MG/D5W 300ML 300 ML IV SCH (17:09)
--- NOTE | 2019-08-11 18:06 | Diagnostic Imaging Report ---
EXAM: Renal Ultrasound INDICATION: mary COMPARISON: None TECHNIQUE: Transverse and longitudinal images of the kidneys and bladder were obtained. FINDINGS: Right Kidney: Size: 11.7 cm Echogenicity: Normal Parenchymal thickness: Normal Collecting system: No hydronephrosis Stones: None Cyst/Mass: None Left Kidney: Size: 12.0 cm Echogenicity: Normal Parenchymal thickness: Normal Collecting system: No hydronephrosis Stones: None Cyst/Mass: None Bladder: Normal IMPRESSION: Normal renal ultrasound exam. Signed by: Ronnie Rankin MD on 08/11/2019 6:02 PM
--- NOTE | 2019-08-11 19:17 | NUR ---
Bedside shift report received from day RN. Pt is alert and oriented x3. Pt denies pain. Dressing to left foot clean,dry, and intact. Left 2nd toe amputated 08/10.sl left AC 20g- site healthy. No b/p rt arm - hx breast cancer. Voiding per urinal. Pt remains on bedrest. Pt resting in semi-fowlers position watching tv. Call light within reach. Bed in low position.
--- NOTE | 2019-08-11 19:17 | NUR ---
urine collected for UA and taken to lab by FARIHA
--- NOTE | 2019-08-11 19:20 | Consultation ---
DATE OF CONSULTATION: REASON FOR CONSULT: The patient is admitted for IV antibiotics and further medical workup and stabilization due to osteomyelitis and gangrene, 2nd digit, left foot. PREVIOUS MEDICAL HISTORY: This patient has a history of breast cancer on the right side. He also has a history of diabetes, distal peripheral neuropathy, peripheral arterial disease. REVIEW OF SYSTEMS: Otherwise negative. The patient was in his normal state of health. He is status post amputation of the left hallux and metatarsal, thus leaving the second digit somewhat vulnerable to breakdown. Ultimately, several months ago, he did ulcerate the distal aspect of the second digit which progressed to osteomyelitis and distal digital gangrene by clinical exam and MRI. The patient has failed a course of outpatient treatment and therapy including oral antibiotics and is admitted for more definitive care. PHYSICAL EVALUATION: Lower extremity vascular status, the patient has nonpalpable pedal pulses in either dorsalis pedis or posterior tibial. Skin temperature is warm. Cap refill is sluggish. Neurologically, he has a loss of protective sensation as evidenced by [place] monofilament testing. Dermatologically, large open ulcer, 2nd digit of the left foot, distal aspect with bone exposed. Partial bone debridement was performed in the office several weeks ago and the patient has only progressed from there with worsening of the infection. The musculoskeletal exam shows a patient who is status post amputation first ray of the left foot with distal digital gangrene and osteomyelitis of the second digit of the left foot. DIAGNOSES: Osteomyelitis, gangrene, admission for amputation. Deep wound culture and sensitivity. IV antibiotics and further medical workup. He will need a PICC line and Interventional Radiology has been consulted to make recommendations and perform the appropriate indwelling catheter or long-term portal for IVs as this patient has had breast cancer and has been told he is not a good candidate for central line on the right. He has pacemaker on the left. We will follow their recommendations, but otherwise start IV antibiotics peripherally and follow while in house. ANY Dumont/ARPIT /[id number]
--- NOTE | 2019-08-11 19:30 | Operative Report ---
DATE OF PROCEDURE: SURGEON: Tariq Haji DPM PREOPERATIVE DIAGNOSIS: Distal digital gangrene, second digit, left foot with osteomyelitis. POSTOPERATIVE DIAGNOSIS: Distal digital gangrene, second digit, left foot with osteomyelitis. OPERATION: Amputation of second digit, left foot. ANESTHESIA: General endotracheal. HEMOSTASIS: Left thigh tourniquet to 350 mmHg. PROCEDURE IN DETAIL: The patient was taken to the operating room in a nonsedated state, placed on the operating table in supine position. Following induction of general anesthetic, the left lower extremity was elevated to 60 degrees to exsanguinate before inflating the pneumatic thigh tourniquet to 350 mmHg to create hemostasis. Left lower extremity was placed on the operating table prior to performing following procedure. Hockey-stick shaped incision was placed overlying the dorsal aspect and circumferentially around the second digit of the left foot. At approximate level of the head of the proximal phalanx, incision was deepened via sharp and blunt dissection down to the level of the dorsal capsular structure. Transverse tenotomy was performed and the bone revealed a transverse sectioning of the proximal phalanx was performed and the head of the proximal phalanx as well as the distal digit were resected from the wound. Deep wound base was evaluated, and although there was a significant infection at the distal tissue, the proximal portion had only a mild soupy appearance. This area was cultured to determine the long-term need for antibiotics, particularly the remaining base of the bone. The area was then irrigated with copious amounts of bacitracin solution. Deep closure with 3-0 Vicryl and skin closure with 4-0 nylon. The distal plantar portion was packed open with quarter-inch iodoform. The patient was dressed with the mildly compressive dressings with a pneumatic thigh tourniquet showed a normal hyperemic flush to all digits of the left foot. The patient left the operating room, vital signs stable in apparent satisfactory condition and tolerated both the anesthetic and procedure very well. This patient will be admitted for further medical workup and stabilization. He also will need IV antibiotics perhaps long-term due to the nature of the infection being in the bone. The patient sees Dr. Mahin Hayes for vascular, who will be asked to consult on the case as well. ANY Dumont/ARPIT /[id number]
[2019-08-11 19:40] LABS: BILIRUBIN,URINE NEGATIVE (NEGATIVE); CLARITY,URINE SL CLOUDY (CLEAR); COLOR,URINE YELLOW (YELLOW); KETONES,URINE NEGATIVE (NEGATIVE); LEUKOCYTE ESTERASE ,URINE NEGATIVE (NEGATIVE); NITRITE,URINE NEGATIVE (NEGATIVE); PROTEIN,URINE DIPSTICK NEGATIVE (NEGATIVE); URINE UROBILINOGEN 0.2 mg/dL (0.2 - 1)
[2019-08-11] MEDS ORDERED: ETOMIDATE 2 MG/ML 10 ML INJ IV ONE (19:42)
[2019-08-11] MEDS ORDERED: PROPOFOL IV EMULSION 10 MG/ML 20 ML VIAL ONE (19:42)
[2019-08-11] MEDS ORDERED: SEVOFLURANE INHAL SOLN 250 ML PEN BTL ONE (19:42)
[2019-08-11 19:50] LABS: BACTERIA,URINE RARE /HPF; CALCIUM CARBONATE CRYSTALS,UR RARE; EPITHELIAL CELLS,URINE RARE /LPF; RENAL EPITHELIAL CELLS,URINE RARE
[2019-08-11 19:52] LABS: CREATININE,URINE RANDOM 81.64 mg/dL (63-166); TOTAL PROTEIN, URINE 7.6 mg/dL (1-14)
[2019-08-11 20:00] VITALS: BP 113/70
[2019-08-11 21:00] VITALS: BP 113/70
--- NOTE | 2019-08-11 21:16 | History and Physical ---
REASON FOR CONSULTATION: Osteomyelitis of the second toe. HISTORY OF PRESENT ILLNESS: This patient is well known to me from before. He does have history of diabetes mellitus, history of hypertension, history of chronic kidney disease, who comes in after he hit his toe while he was working in the garden. He has been followed as an outpatient that is getting progressively worse. He was admitted for amputation. I was asked to see him to make recommendation to his antibiotic. He is currently lying in bed comfortably. PAST MEDICAL HISTORY: Significant for diabetes mellitus, coronary artery disease, atrial fibrillation, chronic kidney disease, had a pacemaker on the left. He also have or lump. ALLERGIES: NKA. SOCIAL HISTORY: There is no smoking, drug abuse, or alcohol abuse. FAMILY HISTORY: Otherwise unremarkable. REVIEW OF SYSTEMS: At present time: HEENT: Negative. PULMONARY: Negative. CARDIAC: Negative. : Negative. GI: Negative. SKIN: There are no other rashes. PHYSICAL EXAMINATION: GENERAL: He is currently alert, oriented, does not seem to be in acute distress. VITAL SIGNS: Stable, currently afebrile. HEENT: He is not icteric. NECK: Supple. CHEST: Clear. ABDOMEN: Soft. Bowel sounds present. EXTREMITIES: No edema. SKIN: No rash. IMPRESSION: Osteomyelitis of the left 2nd toe, amputation. We will place him on Rocephin and azithromycin. We will recheck CBC, recheck Chem panel, obtain sedimentation rate C-reactive protein. Obtain x-ray and MRI of the foot. May need a central line for IV antibiotic. We will follow. MD NAYELI Costello/ARPIT /[id number]
--- NOTE | 2019-08-11 23:31 | Consultation ---
DATE OF CONSULTATION: 08/11/2019 HISTORY OF PRESENT ILLNESS: This is a delightful 79-year-old gentleman. I have been consulted for management of chronic kidney disease. He is under the care of Dr. Haji, had a foot surgery done. Please see his note for details. He has osteomyelitis, for which he is receiving antibiotics and Infectious Disease is following. There is a question for clearance of PICC line as well. The patient otherwise lying supine. He is awake, alert. Denies shortness of breath, nausea, or vomiting. Denies any abdominal pain. Denies any problems passing urine. PAST MEDICAL HISTORY: Significant for diabetes, has been on Lantus and glipizide at home; history of abnormal kidney function. He does not know which level, does not see any kidney doctor, follows Dr. 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 He gets annual cystoscopy and so far has been clear of cancer. He claims he has had prior right-sided breast cancer, status post right mastectomy. He has a pacemaker on the left side. History of coronary artery disease, atrial fibrillation, on blood thinners. LABORATORY DATA: Labs show white count 11.2, hemoglobin 14.1. Sodium 138, potassium 4.1, creatinine 2.11. ALLERGIES: NO APPARENT DRUG ALLERGIES. CURRENT MEDICATIONS: The patient is on ceftriaxone 1 g IV q.24 and linezolid 600 mg p.o. q.12. SOCIAL HISTORY: The patient enjoys drinking beer once a day. He is , retired. Denies any akkf-anp-qhyoqmw use of nonsteroidal anti-inflammatory drug medications. FAMILY HISTORY: Significant for hypertension. PHYSICAL EXAMINATION: GENERAL: Awake, alert, and oriented x3, lying supine, in no apparent distress. VITAL SIGNS: Blood pressure is 117/62, pulse rate 86, afebrile, oxygen saturation 96% on room air. HEAD AND NECK: Cornea clear. Mucosa moist. LUNGS: Relatively clear. HEART: S1 and S2 audible. ABDOMEN: Otherwise soft, nontender. No apparent visceromegaly. LOWER EXTREMITIES: Show edema, left lower extremity more than right with dressing noted over the foot. IMPRESSION AND PLAN: History of cssqj-hk-qczfwda kidney failure, likely nephrosclerosis due to diabetes and hypertension. No significant acid-base disturbance. He has a prior right mastectomy for breast cancer. He has a pacemaker on the left site. We would recommend tunneled central line for outpatient antibiotics and we will not recommend PICC line. He has chronic kidney disease stage 3 most likely; history of bladder cancer, in remission; coronary artery disease; atrial fibrillation. His blood thinners are on hold time to proceed. He has some lower extremity edema. We will obtain spot urine protein-creatinine ratio, kidney ultrasound, avoidance of nonsteroidal anti-inflammatory drug medications explained. We will add Lasix 40 mg p.o. daily. MD GEOFF Scott/ARPIT /[id number]
[2019-08-12] VITALS (8 sets, daily range): BP systolic 107–133; BP diastolic 53–76
[2019-08-12] MEDS: LINEZOLID 600 MG/D5W 300ML 300 ML IV SCH (03:36)
--- NOTE | 2019-08-12 06:56 | NUR ---
Received bedside shift report from off going nurse. Patient is in stable condition. No s/s of distress noted. Call light within reach. Bed in the lowest position.
[2019-08-12 07:17] LABS: ALBUMIN 2.8 g/dL (3.5-5.0); ANION GAP 11.3 mmol/L (8-16); CALCIUM 8.8 mg/dL (8.4-10.2); CREATININE, SERUM 1.39 mg/dL (0.72-1.25); POTASSIUM 4.3 mmol/L (3.5-5.1)
[2019-08-12] MEDS: PANTOPRAZOLE SOD 40 MG TABEC PO SCH ×2 (08:17→17:06)
[2019-08-12] MEDS: METOPROLOL SUCCINATE 50 MG TAB XL PO SCH ×2 (08:17→17:06)
[2019-08-12] MEDS: GLIPIZIDE 5 MG TAB PO SCH (08:17)
[2019-08-12] MEDS: FUROSEMIDE 40 MG TAB PO SCH (08:17)
[2019-08-12] MEDS: CEFTRIAXONE SOD 1 GM/NS 50 ML 50 ML IV SCH (15:00)
[2019-08-12] MEDS: LINEZOLID 600 MG TAB PO SCH (15:00)
--- NOTE | 2019-08-12 19:30 | NUR ---
Pt visited in room during nursing rounds. Patient alert and oriented x3. Ambulatory with standby assist in room. S/P Amputation of right 2nd toe on 08/11/19 and right foot wrapped with surgical dressing and sotero bandage. Pt denies pain or any discomfort at this time. Call greenberg within reach. Will monitor pt closely. Addendum: 08/12/19 at 2232 by Braxton Oates RN Correction: s/p amputation on left 2nd toe on 08/11/19. NOT on right 2nd toe.
--- NOTE | 2019-08-12 19:38 | NUR ---
Bedside shift report given to oncoming nurse. Patient is resting in bed. No acute distress noted. Call light within reach. Bed in the lowest position.
[2019-08-12] MEDS: INSULIN GLARGINE 100 UNITS/ML VIAL SQ SCH (21:10)
[2019-08-13] VITALS (8 sets, daily range): BP systolic 97–124; BP diastolic 62–78
[2019-08-13] MEDS: LINEZOLID 600 MG TAB PO SCH ×2 (03:00→14:12)
--- NOTE | 2019-08-13 07:02 | NUR ---
RECEIVED BEDSIDE SHIFT REPORT FROM OFF GOING NURSE. PATIENT IS RESTING IN BED. NO ACUTE DISTRESS NOTED AT THIS TIME. CALL LIGHT WITHIN REACH. BED IN THE LOWEST POSITION.
[2019-08-13] MEDS: GLIPIZIDE 5 MG TAB PO SCH (08:30)
[2019-08-13] MEDS: PANTOPRAZOLE SOD 40 MG TABEC PO SCH ×2 (08:30→17:13)
[2019-08-13] MEDS: FUROSEMIDE 40 MG TAB PO SCH (08:30)
[2019-08-13] MEDS: METOPROLOL SUCCINATE 50 MG TAB XL PO SCH ×2 (08:30→17:00)
[2019-08-13] MEDS: FENOFIBRIC ACID PO SCH (08:46)
[2019-08-13] MEDS: CEFTRIAXONE SOD 1 GM/NS 50 ML 50 ML IV SCH (14:12)
[2019-08-13] MEDS ORDERED: DEXTROSE 50% SYRINGE 50 ML IV PRN (17:45)
--- NOTE | 2019-08-13 19:06 | NUR ---
Bedside shift report given to oncoming nurse. Patient is resting in bed. No acute distress noted at this time. Call light within reach. Bed in the lowest position.
[2019-08-13] MEDS ORDERED: SODIUM CHLORIDE 0.9% 250ML 250 ML ONE (19:56)
[2019-08-13] MEDS: INSULIN LISPRO 100 UNIT/1 ML 3ML VIAL SQ SCH (20:50)
[2019-08-13] MEDS: INSULIN GLARGINE 100 UNITS/ML VIAL SQ SCH (20:53)
[2019-08-14] VITALS (8 sets, daily range): BP systolic 106–133; BP diastolic 63–84
[2019-08-14] MEDS: LINEZOLID 600 MG TAB PO SCH ×2 (03:01→16:10)
--- NOTE | 2019-08-14 07:20 | NUR ---
Bedside report and walking rounds completed with oncoming nurse. Patient in bed with call light within reach. No issues or concerns noted.
[2019-08-14] MEDS: INSULIN LISPRO 100 UNIT/1 ML 3ML VIAL SQ SCH ×4 (07:30→21:30)
[2019-08-14] MEDS: FUROSEMIDE 40 MG TAB PO SCH (09:00)
[2019-08-14] MEDS: METOPROLOL SUCCINATE 50 MG TAB XL PO SCH ×2 (09:00→17:05)
[2019-08-14] MEDS: PANTOPRAZOLE SOD 40 MG TABEC PO SCH ×2 (09:00→17:05)
[2019-08-14] MEDS: GLIPIZIDE 5 MG TAB PO SCH (09:00)
[2019-08-14] MEDS: FENOFIBRIC ACID PO SCH (09:00)
--- NOTE | 2019-08-14 09:35 | NUR ---
Pt. expressed no spiritual or emotional concerns at this time. Set Up Inspector provided hospitality and information on how to reach home aid, if needed. No need to follow at this time. RODNEY FOSTER Set Up Inspector Spiritual Care Department O: [phone]
--- NOTE | 2019-08-14 11:00 | Progress Note ---
DATE: SUBJECTIVE: The patient is seen and evaluated. Discussed with Dr. Rodríguez. Events noted. No new complaints. REVIEW OF SYSTEMS: No nausea, vomiting, fever, chills, chest pain, shortness of breath, cough, headache, dysuria, polyuria, or rash. PHYSICAL EXAMINATION: VITAL SIGNS: Temperature 97.5, pulse is 89, respirations 17, and blood pressure 116/80. GENERAL: Alert and oriented, no acute distress. CV: S1 and S2. CHEST: Equal expansion. Clear to auscultation. No acute distress. ABDOMEN: Soft and nontender. No distention. HEENT: Moist. No pallor. No JVD. EXTREMITIES: The left foot with surgical dressing. MEDICATIONS: Medication list reviewed and as far as Infectious Disease point of view, the patient is on Rocephin and Zyvox. LABORATORY STUDIES: No new CBC or BMP available. Serology; COVID-19 PCR not detected on 08/07. MICROBIOLOGY: Wound culture showed coag-negative Staph. RADIOLOGY: No new radiology studies available. ASSESSMENT AND PLAN: 1. A 79-year-old gentleman. 2. Osteomyelitis of left 2nd toe. 3. Status post amputation of the left 2nd toe with the culture showing coagulase-negative staph. 4. History of right breast cancer. 5. Permanent pacemaker on the left side. 6. Leukocytosis. 7. Obesity. 8. Debility. Await central line placement today. Discussed with Dr. Rodríguez. Please refer to chart for more information. Dictated by Ronnie Negro PA-C (Al) Halley Rodríguez MD /MODL /[id number]
[2019-08-14] MEDS ORDERED: FENTANYL CITRATE/PF 100MCG/2 ML INJ ONE (11:54)
[2019-08-14] MEDS ORDERED: MIDAZOLAM HCL 2 MG/2 ML VIAL ONE (11:54)
--- NOTE | 2019-08-14 12:05 | NUR ---
PATIENT OFF THE UNIT FOR TUNNELED CATH PROCEDURE, STABLE
[2019-08-14] MEDS ORDERED: LIDOCAINE HCL 1% LOCAL INJ 20 ML VIAL ONE (12:13)
[2019-08-14] MEDS ORDERED: SODIUM CHLORIDE 0.9% 250ML 250 ML ONE (12:14)
[2019-08-14] MEDS ORDERED: IOPAMIDOL 300 MG/ML 15ML VIAL IT ONE (12:14)
--- NOTE | 2019-08-14 14:13 | NUR ---
Patient back from procedure, AAOx3, No distress, tunneled cath site dressing intact, keep monitoring
[2019-08-14] MEDS: CEFTRIAXONE SOD 1 GM/NS 50 ML 50 ML IV SCH (14:48)
--- NOTE | 2019-08-14 15:24 | Diagnostic Imaging Report ---
PROCEDURE: Tunneled central venous catheter placement Procedural Personnel Attending physician(s): Chaparrita Cee MD Fellow physician(s): None Resident physician(s): None Advanced practice provider(s): None Pre-procedure diagnosis: Osteomyelitis Post-procedure diagnosis: Same Indication: skilled nursing IV antibiotics Additional clinical history: None Complications: No immediate complications. IMPRESSION: Insertion of right-sided dual-lumen tunneled Proline power injectable catheter, with tip in the expected location of the cavoatrial junction. Plan: The catheter may be used immediately. PROCEDURE SUMMARY: - Venous access with ultrasound guidance - Tunneled central venous catheter insertion with fluoroscopic guidance - Additional procedure(s): None PROCEDURE DETAILS: Pre-procedure Consent: Informed consent for the procedure including risks, benefits and alternatives was obtained and time-out was performed prior to the procedure. Preparation (MIPS): The site was prepared and draped using all elements of maximal sterile barrier technique including sterile gloves, sterile gown, cap, mask, large sterile sheet, sterile ultrasound probe cover, hand hygiene and cutaneous antisepsis with 2% chlorhexidine. Medical reason for site preparation exception (MIPS): Not applicable Anesthesia/sedation Level of anesthesia/sedation: Moderate sedation (conscious sedation) Anesthesia/sedation administered by: Independent trained observer under attending supervision with continuous monitoring of the patient?s level of consciousness and physiologic status Total intra-service sedation time (minutes): 30 Access Local anesthesia was administered. The vessel was sonographically evaluated and determined to be patent. Real time ultrasound was used to visualize needle entry into the vessel and a permanent image was stored. Vein accessed: Internal jugular vein Access technique: Micropuncture set with 21 gauge needle Catheter placement An incision was made near the venous access site and the catheter was tunneled subcutaneously to the venous access site and trimmed to appropriate length. The catheter was advanced via a peel-away sheath into the vein under fluoroscopic guidance. Catheter tip location was fluoroscopically verified and a permanent image was stored. Catheter placed: 6Fr Medcomp Proline Catheter size (Bermudian): 6 Catheter flush: Normal saline Closure A sterile dressing was applied. Access site closure technique: Tissue adhesive Catheter securement technique: Non-absorbable suture Contrast Contrast agent: None Contrast volume (mL): N/A Radiation Dose Fluoroscopy time (minutes): 0.3 Reference air kerma (mGy): 2.0 Additional Details Additional description of procedure: None Equipment details: None Specimens removed: None Estimated blood loss (mL): Less than 10 Standardized report: [email or web address] Attestation Signer name: Chaparrita Cee MD I attest that I was present for the entire procedure. I reviewed the stored images and agree with the report as written. Signed by: Chaparrita Cee MD on 08/14/2019 3:21 PM
--- NOTE | 2019-08-14 18:25 | NUR ---
Dr Amor had rounds, dressing on left foot changed, patient not in any distress
--- NOTE | 2019-08-14 19:11 | NUR ---
RECEIVED REPORT FROM PREVIOUS NURSE. CALL LIGHT WITHIN REACH. PATIENT IN BED.
--- NOTE | 2019-08-14 19:21 | Progress Note ---
DATE: The patient is seen today 4 days status post amputation left 2nd digit. Dressing is changed and packing removed. The wound was irrigated and there is moderate amount of drainage. The appropriate mildly compressive dressings were applied. The patient will need long-term IV antibiotics. He has his central line in place and wound cultures. Bone culture showed coagulase-negative Staph on the preliminary culture. The patient is otherwise doing well with Renal evaluation by Dr. Quiñones. He has seen Dr. Jane and Dr. Rodríguez. We await arrangement for outpatient IV antibiotics. However, in the interim daily local wound care with saline wet-to-dry dressings are appropriate. He will follow with me within 1 week from discharge from the hospital and may be discharge once IV antibiotics are set up. ANY Dumont/ARPIT /[id number]
[2019-08-14] MEDS: INSULIN GLARGINE 100 UNITS/ML VIAL SQ SCH (21:30)
[2019-08-15] VITALS (9 sets, daily range): BP systolic 11–128; BP diastolic 60–76
[2019-08-15] MEDS: LINEZOLID 600 MG TAB PO SCH (03:15)
[2019-08-15 06:46] LABS: BASOPHILS % 0.4 % (0.0-1.0); EOSINOPHILS # (AUTO) 0.4 (0.0-0.4); EOSINOPHILS % 4.8 % (0.0-6.0); HEMATOCRIT 40.8 % (38.2-49.6); HEMOGLOBIN 13.1 g/dL (14.0-18.0); LYMPHOCYTES # (AUTO) 1.4 (1.0-3.2); LYMPHOCYTES % 16.5 % (18.0-39.1); MEAN CORPUSCULAR HEMOGLOBIN 30.5 pg (28-32); MEAN CORPUSCULAR HGB CONC 32.1 g/dL (31-35); MEAN CORPUSCULAR VOLUME 95.1 fL (81-99); MONOCYTES # (AUTO) 0.7 (0.2-0.8); MONOCYTES % 8.9 % (4.4-11.3); NEUTROPHILS # (AUTO) 5.7 (2.1-6.9); NEUTROPHILS % 69.2 % (38.7-80.0); PLATELET COUNT 264 x10e3/uL (140-360); RED BLOOD COUNT 4.29 x10e6/uL (4.3-5.7); RED CELL DISTRIBUTION WIDTH 14.3 % (11.7-14.4)
--- NOTE | 2019-08-15 07:02 | NUR ---
GAVE BEDSIDE SHIFT REPORT TO ONCOMING NURSE. CALL LIGHT WITHIN REACH. PATIENT IN BED.
[2019-08-15 07:26] LABS: ALBUMIN 2.9 g/dL (3.5-5.0); ALBUMIN/GLOBULIN RATIO 0.9 (0.8-2.0); CALCIUM 9.1 mg/dL (8.4-10.2); CREATININE, SERUM 1.36 mg/dL (0.72-1.25); MAGNESIUM 1.9 MG/DL (1.3-2.1)
[2019-08-15] MEDS: INSULIN LISPRO 100 UNIT/1 ML 3ML VIAL SQ SCH ×4 (07:50→20:54)
[2019-08-15] MEDS: FENOFIBRIC ACID PO SCH (09:00)
[2019-08-15] MEDS: GLIPIZIDE 5 MG TAB PO SCH (09:10)
[2019-08-15] MEDS: PANTOPRAZOLE SOD 40 MG TABEC PO SCH ×2 (09:10→18:05)
[2019-08-15] MEDS: METOPROLOL SUCCINATE 50 MG TAB XL PO SCH ×2 (09:10→18:05)
[2019-08-15] MEDS: FUROSEMIDE 40 MG TAB PO SCH (09:10)
[2019-08-15] MEDS: VANCOMYCIN HCL 1.25 GM in SODIUM CHLORIDE 0.9% 250ML 250 ML IV SCH (11:50)
--- NOTE | 2019-08-15 11:54 | Progress Note ---
DATE: SUBJECTIVE: The patient is seen and evaluated. Available labs and notes reviewed. The patient is seen twice and actually once was with Case Management in the room. REVIEW OF SYSTEMS: No nausea, vomiting, fever, chills, chest pain, shortness of breath, headache, rash. PHYSICAL EXAMINATION: VITAL SIGNS: Temperature is 97.6, pulse 67, respirations 20, and blood pressure 110/76. GENERAL: Alert and oriented, very pleasant, in no acute distress. CV: S1, S2. CHEST: Equal expansion. Clear to auscultation. No acute distress. ABDOMEN: Soft and nontender. No distention. HEENT: Moist. No pallor. No JVD. EXTREMITIES: Left foot dressed, local care. MEDICATIONS: This patient currently on Rocephin and Zyvox antibiotic graf. LABORATORY STUDIES: White blood cells 8.28 from 11.26, hemoglobin 13.1, platelet 264. Sodium 137, potassium 4, creatinine 1.36. SEROLOGY: COVID-19 PCR negative on 08/07. MICROBIOLOGY: Wound culture came back with coagulase negative staph. RADIOLOGY STUDIES: The patient is status post right upper chest tunnel catheter placement for IV antibiotics. ASSESSMENT AND PLAN: This is a pleasant 79-year-old gentleman with: 1. Osteomyelitis of the left second toe. 2. Status post amputation of the right ede, left second toe. 3. History of right breast cancer. 4. The patient has a pacemaker on the left. 5. Leukocytosis, resolved. 6. Remains on Rocephin and Zyvox. 7. Wound culture showed coag-negative staph. 8. The patient is currently on daily wet-to-dry wound care. Discussed with the patient and case management. The patient to be arranged with outpatient vancomycin IV for a total of 4 weeks with weekly CBC, BMP, and vancomycin trough and the patient to be scheduled to come back to take the central line since it is a tunneled cath. Discussed with Dr. Rodríguez in details. Discussed with staff. Please refer to chart for more information. Dictated by Ronnie Negro PA-C (Al) Halley Rodríguez MD /MODL /[id number]
--- NOTE | 2019-08-15 13:57 | NUR ---
ORDERS TO ARRANGE IV VANCOMYCIN AT HOME X 4 WEEKS RIGHT CENTRAL LINE IN PLACE CBC, BMP AND VANCO TROUGH Q WEDNESDAY WHILE ON IV ABX REPORT ALL LAB RESULTS TO DR RODRIGUEZ'S OFF ORDERS TO ARRANGE CENTRAL LINE REMOVAL AT HOSPITAL AFTER IV ABX COMPLETED CM CALLED AND SPOKE WITH I.R. WHO STATES PHYSICIAN MUST CALL I.R. AND SCHEDULE PT TO COME IN WHEN THE ABX COMPLETE I EXPLAINED ABOVE TO AL CARE MANAGEMENT ASSISTANT WITH DR RODRIGUEZ AND HE UNDERSTANDS CHOICE LETTER SIGNED BY PT FOR [facility] PH [phone] CLINICALS FAXED TO [phone] AND [facility] PH: [phone] CONFIRMATION REC'D ORDERS FOR WET TO DRY BETADINE DRESSING CHANGES TO LEFT FOOT Q DAY CONFIRMED ADDRESS AND PHONE NUMBER WITH PT AND OVER PHONE PLAN DC HOME TOMORROW
--- NOTE | 2019-08-15 19:01 | NUR ---
RECEIVED BEDSIDE SHIFT REPORT FROM PREVIOUS NURSE. CALL LIGHT WITHIN REACH. PATIENT IN BED ASLEEP
[2019-08-15] MEDS: INSULIN GLARGINE 100 UNITS/ML VIAL SQ SCH (20:54)
[2019-08-16 04:00] VITALS: BP 122/90
--- NOTE | 2019-08-16 07:20 | NUR ---
GAVE BEDSIDE SHIFT REPORT TO ONCOMING NURSE. PATIENT IN BED. CALL LIGHT WITHIN REACH.
--- NOTE | 2019-08-16 07:20 | NUR ---
PATIENT IS AWAKE AND IN STABLE CONDITION WITH NO S/S OF RESPIRATORY DISTRESS. NO PAIN VOICED. DRESSING/ARIELLE BANDAGE APPLIED TO LEFT SECOND TOE/FOOT; DRESSING IS C/D/I. CALL LIGHT IS WITHIN REACH, PATIENT INSTRUCTED TO CALL FOR ASSISTANCE NEEDED.
[2019-08-16] MEDS: INSULIN LISPRO 100 UNIT/1 ML 3ML VIAL SQ SCH ×2 (07:30→11:25)
[2019-08-16 07:40] VITALS: BP 125/67
[2019-08-16 07:47] VITALS: BP 124/67
[2019-08-16] MEDS: FENOFIBRIC ACID PO SCH (08:14)
[2019-08-16] MEDS: METOPROLOL SUCCINATE 50 MG TAB XL PO SCH (08:15)
[2019-08-16] MEDS: PANTOPRAZOLE SOD 40 MG TABEC PO SCH (08:15)
[2019-08-16] MEDS: FUROSEMIDE 40 MG TAB PO SCH (08:15)
[2019-08-16] MEDS: GLIPIZIDE 5 MG TAB PO SCH (08:16)
[2019-08-16] MEDS: VANCOMYCIN HCL 1.25 GM in SODIUM CHLORIDE 0.9% 250ML 250 ML IV SCH (08:19)
[2019-08-16 11:22] VITALS: BP 112/77
--- NOTE | 2019-08-16 12:09 | Progress Note ---
DATE: SUBJECTIVE: The patient is seen and evaluated. Discussed with the patient. Discussed with case Management. Discussed with the nurse and discussed with Dr. Rodríguez. REVIEW OF SYSTEMS: No nausea, vomiting, fever, chills, chest pain, shortness of breath, headache, dysuria, polyuria, cough. The patient is anxious to go home. PHYSICAL EXAMINATION: VITAL SIGNS: Temperature 97.7, pulse is 53, respiration 18, blood pressure 124/67. GENERAL: Alert and oriented, very pleasant. CV: S1, S2. CHEST: Equal expansion. Clear to auscultation. No acute distress. ABDOMEN: Soft and nontender. No distention. HEENT: Moist. No pallor. No JVD. EXTREMITIES: Left foot dressed on local care. LABORATORY STUDIES: No new CBC or BMP available. MICROBIOLOGY STUDIES: Wound culture showed coag-negative Staph. No pathology available and no radiology available. RADIOLOGY STUDIES: No new radiology studies available. ASSESSMENT AND PLAN: 1. Osteomyelitis of the left 2nd toe. 2. Status post amputation of the left 2nd toe. 3. Wound cultures showed coagulase negative staph. 4. Patient with a history of right breast cancer and has a left chest wall pacemaker placement. Now the patient is status post central line placement. Antibiotic is arranged. Per my discussion with Case Management for home with vancomycin and weekly labs for 4 weeks. The patient to follow up with Dr. Rodríguez in [address] Rodríguez receiving all the labs during the patient's outpatient IV antibiotics and further management of this patient is based on daily findings, on laboratory and physical examination. Thank you for this dictation. Please refer to chart for more information. Dictated by Ronnie Negro PA-C (Al) Halley Rodríguez MD /MODL /[id number]
--- NOTE | 2019-08-16 16:27 | NUR ---
PATIENT DISCHARGE HOME WITH [facility]- PATIENT OFF THE UNIT AT 1546 PER WHEELCHAIR ACCOMPANIED BY STAFF MEMBER TO THE FRONT LOBBY. PATIENT IS IN STABLE CONDITION WITH NO S/S OF RESPIRATORY DISTRESS- NO PAIN VOICED. IV TO LEFT AC REMOVED WITH TIP INTACT AT 1445. CENTRAL LINE NOTED TO UPPER RIGHT CHEST IS SALINE LOCKED- DRESSING IS C/D/I, NO DRAINAGE NOTED. DRESSING/ARIELLE BANDAGE IS C/D/I TO LEFT SECOND TOE/FOOT. DISCHARGE TEACHING AND INSTRUCTIONS GIVEN TO THE PATIENT. ALL PERSONAL ITEMS WERE TAKEN WITH THE PATIENT.
--- NOTE | 2019-08-17 05:57 | Discharge Summary ---
DISCHARGE DIAGNOSES: 1. Possible osteomyelitis of the left 2nd digit. 2. Status post amputation left 2nd digit. 3. Diabetes. 4. Hypertension. HISTORY OF PRESENT ILLNESS AND HOSPITAL COURSE: The patient is a gentleman with history of hypertension, diabetes, who had amputation of the left 2nd digit with possible osteomyelitis of the area. So, he was brought in, placed on IV antibiotics, and a tunneled catheter was placed, seen by Infectious Disease as well as Podiatry, Dr. Haji. The wound care and Infectious Disease monitored the antibiotics. Medically, he did very well. At the time of discharge, he was clear. His IV antibiotics were set up for home. So once they are set up, he will be discharged home. Follow up in 1 to 2 weeks with his primary care physician as well as Dr. Haji and Dr. Rodríguez. Please see hospital chart for full details. MD JORDI Suazo/ARPIT /[id number]
== END 2019-08-16 15:46 | disposition home or self-care (01) | DRG 617 ==
LOC: OR 07:35 → PACU V 11:53 → MED/SURG3 13:30
PROVIDERS: ADMIT Internal Medicine; ATTEND Internal Medicine
PROC: 0Y6S0Z1 Detachment at Left 2nd Toe, High, Open Approach (ICD-10-PCS; principal; 2019-08-11 10:14)
PROC: 0JH63XZ Insertion of Tunneled Vascular Access Device into Chest Subcutaneous Tissue and Fascia, Percutaneous Approach (ICD-10-PCS; 2019-08-14)
PROC: 02HV33Z Insertion of Infusion Device into Superior Vena Cava, Percutaneous Approach (ICD-10-PCS; 2019-08-14)
PROC: B5181ZA Fluoroscopy of Superior Vena Cava using Low Osmolar Contrast, Guidance (ICD-10-PCS; 2019-08-14)
DX: E11.69 Type 2 diabetes mellitus with other specified complication (principal); E11.52 Type 2 diabetes mellitus with diabetic peripheral angiopathy with gangrene; M86.171 Other acute osteomyelitis, right ankle and foot; E11.22 Type 2 diabetes mellitus with diabetic chronic kidney disease; I12.9 Hypertensive chronic kidney disease with stage 1 through stage 4 chronic kidney disease, or unspecified chronic kidney disease; N18.3 Chronic kidney disease, stage 3 (moderate); Z82.49 Family history of ischemic heart disease and other diseases of the circulatory system; I25.10 Atherosclerotic heart disease of native coronary artery without angina pectoris; I48.91 Unspecified atrial fibrillation; Z95.0 Presence of cardiac pacemaker; Z85.3 Personal history of malignant neoplasm of breast; Z90.11 Acquired absence of right breast and nipple; Z85.51 Personal history of malignant neoplasm of bladder; E66.9 Obesity, unspecified; Z68.28 Body mass index [BMI] 28.0-28.9, adult; K21.9 Gastro-esophageal reflux disease without esophagitis; N17.9 Acute kidney failure, unspecified; N40.0 Benign prostatic hyperplasia without lower urinary tract symptoms; Z79.4 Long term (current) use of insulin
CPT/HCPCS: 36415; 36558; 71046; 76770; 76937; 77001; 80048; 80053; 81001; 82570; 82948; 83735; 84156; 85025; 85610; 85730; 87071; 87075; 87205; 87635; 88304; 88305; 88311; 93005; J0696; J1815; J2001; J2020; J2250; J2710; J3010; J3370; J7040; J7050; Q9967

== ENCOUNTER → 2019-09-25 | Outpatient (CLI) | payer MEDICARE, OTHER ==
[~2019-09-25] MED LIST changes: +LIDOCAINE HCL 1% LOCAL INJ 20 ML VIAL ONE
--- NOTE | 2019-09-25 14:53 | Diagnostic Imaging Report ---
Right IJ tunneled central line removal History: Completion of IV therapy, catheter no longer required Modality: None. Sedation: None Commercial Fishing Vessel Operator: Amrit Hsu MD. Delivery Associate: None. Approach: The indwelling right IJ tunneled catheter Estimated blood loss: < 5 cc. Specimen: None. Technique: The procedure including risks and benefits were explained to the patient, who expressed understanding. After informed written consent was obtained, the patient's right chest was prepped and draped in the usual sterile fashion.. The tunneled central line was then removed in total with blunt dissection and gentle traction. The skin entry site was then dressed with sterile gauze and Tegaderm. The patient tolerated the procedure well. Impression: Successful, uncomplicated removal of a right internal jugular tunneled central venous catheter. Signed by: Dr. Amrit Hsu MD on 09/25/2019 2:50 PM
== END ==
LOC: DX 12:55
PROVIDERS: ATTEND Internal Medicine Infectious Disease
DX: M86.072 Acute hematogenous osteomyelitis, left ankle and foot (principal)
CPT/HCPCS: 36589; J2001

== ENCOUNTER 2020-01-13 16:41 | Inpatient (IN) | payer MEDICARE, OTHER ==
[~2020-01-13] VITALS: Ht 188 cm; Wt 100.7 kg
[~2020-01-13 16:41] MED LIST changes: -LIDOCAINE HCL 1% LOCAL INJ 20 ML VIAL ONE
[2020-01-13 17:11] LABS: BASOPHILS % 0.3 % (0.0-1.0); EOSINOPHILS # (AUTO) 0.1 (0.0-0.4); EOSINOPHILS % 0.8 % (0.0-6.0); HEMATOCRIT 43.9 % (38.2-49.6); MEAN CORPUSCULAR HEMOGLOBIN 31.4 pg (28-32); MEAN CORPUSCULAR HGB CONC 31.9 g/dL (31-35); MEAN CORPUSCULAR VOLUME 98.4 fL (81-99); MONOCYTES # (AUTO) 0.8 (0.2-0.8); MONOCYTES % 8.5 % (4.4-11.3); NEUTROPHILS # (AUTO) 7.8 (2.1-6.9); NEUTROPHILS % 80.1 % (38.7-80.0); PLATELET COUNT 211 x10e3/uL (140-360); RED BLOOD COUNT 4.46 x10e6/uL (4.3-5.7); RED CELL DISTRIBUTION WIDTH 15.3 % (11.7-14.4)
[2020-01-13 17:21] LABS: INR 1.26; PROTHROMBIN TIME 16.4 seconds (11.9-14.5)
[2020-01-13 17:22] LABS: PARTIAL THROMBOPLASTIN TIME 34.8 seconds (23.8-35.5)
[2020-01-13 17:32] LABS: ALBUMIN 3.2 g/dL (3.5-5.0); ALBUMIN/GLOBULIN RATIO 0.9 (0.8-2.0); ANION GAP 14.2 mmol/L (8-16); CALCIUM 8.8 mg/dL (8.4-10.2); CREATININE, SERUM 2.15 mg/dL (0.72-1.25); POTASSIUM 5.2 mmol/L (3.5-5.1)
[2020-01-13 17:39] LABS: CREATINE KINASE MB 2.4 ng/mL (0-5.0)
[2020-01-13] MEDS ORDERED: METOPROLOL TARTRATE 50 MG TAB PO ONE (17:45)
[2020-01-13] MEDS ORDERED: ACETAMINOPHEN 325 MG TAB PO ONE (17:45)
[2020-01-13] MEDS ORDERED: MORPHINE SULFATE 2 MG/ML SYR 1ML IV PRN (18:30)
[2020-01-13] MEDS ORDERED: DEXTROSE 50% SYRINGE 50 ML IV PRN (18:30)
[2020-01-13] MEDS ORDERED: ONDANSETRON HCL INJ 2MG/ML 2ML 2 MG/ML VIAL IV PRN (18:30)
[2020-01-13] MEDS ORDERED: SODIUM CHLORIDE 0.9% 1000ML 1,000 ML IV SCH (18:30)
[2020-01-13] MEDS ORDERED: VANCOMYCIN 1GM/NS 250 ML 250 ML IV ONE (18:30)
[2020-01-13] MEDS: PIPERACILLIN/TAZO 2.25 GM 50 ML IV SCH (18:51)
[2020-01-13 20:15] VITALS: BP 113/82
[2020-01-13] MEDS: INSULIN LISPRO 100 UNIT/1 ML 3ML VIAL SQ SCH (21:20)
[2020-01-13 22:00] VITALS: BP 113/82
[2020-01-14] VITALS (8 sets, daily range): BP systolic 106–126; BP diastolic 60–79
[2020-01-14] MEDS: PIPERACILLIN/TAZO 2.25 GM 50 ML IV SCH ×2 (00:38→06:02)
[2020-01-14 06:40] LABS: BASOPHILS # (AUTO) 0.1 (0.0-0.1); BASOPHILS % 0.8 % (0.0-1.0); EOSINOPHILS # (AUTO) 0.2 (0.0-0.4); EOSINOPHILS % 3.7 % (0.0-6.0); HEMATOCRIT 39.3 % (38.2-49.6); LYMPHOCYTES % 14.6 % (18.0-39.1); MEAN CORPUSCULAR HEMOGLOBIN 33.2 pg (28-32); MEAN CORPUSCULAR HGB CONC 33.1 g/dL (31-35); MEAN CORPUSCULAR VOLUME 100.3 fL (81-99); MONOCYTES # (AUTO) 0.6 (0.2-0.8); MONOCYTES % 9.6 % (4.4-11.3); NEUTROPHILS # (AUTO) 4.7 (2.1-6.9); NEUTROPHILS % 70.8 % (38.7-80.0); PLATELET COUNT 158 x10e3/uL (140-360); RED BLOOD COUNT 3.92 x10e6/uL (4.3-5.7); RED CELL DISTRIBUTION WIDTH 15.4 % (11.7-14.4)
[2020-01-14 06:52] LABS: ALBUMIN 2.7 g/dL (3.5-5.0); ANION GAP 11.1 mmol/L (8-16); CALCIUM 8.7 mg/dL (8.4-10.2); CREATININE, SERUM 1.79 mg/dL (0.72-1.25); POTASSIUM 4.1 mmol/L (3.5-5.1)
[2020-01-14] MEDS: INSULIN LISPRO 100 UNIT/1 ML 3ML VIAL SQ SCH ×4 (07:30→21:00)
[2020-01-14 08:22] LABS: CREATINE KINASE MB 1.6 ng/mL (0-5.0)
[2020-01-14] MEDS: FENOFIBRIC ACID 135 MG PO SCH (09:00)
[2020-01-14] MEDS ORDERED: METOPROLOL SUCCINATE 50 MG TAB XL PO SCH (09:45)
[2020-01-14] MEDS: GLIPIZIDE 5 MG TAB PO SCH (10:41)
[2020-01-14] MEDS: FUROSEMIDE 40 MG TAB PO SCH (10:41)
[2020-01-14] MEDS: PANTOPRAZOLE SOD 40 MG TABEC PO SCH ×2 (10:41→17:05)
[2020-01-14] MEDS: ZINC SULFATE 220 MG CAP PO SCH (10:41)
[2020-01-14] MEDS: DABIGATRAN ETEXILATE 75 MG CAP PO SCH ×2 (10:41→17:05)
[2020-01-14] MEDS ORDERED: TAMOXIFEN CITRA10 MG PO (10:46)
[2020-01-14] MEDS ORDERED: METOPROLOL SUCC50 MG PO (10:46)
[2020-01-14] MEDS ORDERED: METOPROLOL SUCCINATE 50 MG TAB XL PO ONE (12:00)
[2020-01-14] MEDS: CEFTRIAXONE SOD 1 GM/NS 50 ML 50 ML IV SCH (12:31)
[2020-01-14] MEDS: LINEZOLID 600 MG/D5W 300ML 300 ML IV SCH (13:22)
[2020-01-14 15:00] LABS: CREATINE KINASE MB 2.2 ng/mL (0-5.0)
[2020-01-14] MEDS ORDERED: NON-FORMULARY MEDICATION (Insulin Glargine (Lantus 3ML Pen) 30 UNITS) SCH (21:00)
[2020-01-14] MEDS: INSULIN GLARGINE 100 UNITS/ML VIAL SQ SCH (21:30)
[2020-01-14] MEDS: TAMOXIFEN CITRATE 10 MG TAB PO SCH (21:30)
[2020-01-14] MEDS: METOPROLOL SUCCINATE 50 MG TAB XL PO SCH (21:30)
[2020-01-14] MEDS: COLLAGENASE 5 GM TUBE TP SCH (21:45)
[2020-01-15] VITALS (8 sets, daily range): BP systolic 117–177; BP diastolic 68–81
[2020-01-15] MEDS: LINEZOLID 600 MG/D5W 300ML 300 ML IV SCH ×2 (01:29→14:09)
[2020-01-15] MEDS: FENOFIBRIC ACID 135 MG PO SCH (08:02)
[2020-01-15] MEDS: PANTOPRAZOLE SOD 40 MG TABEC PO SCH ×2 (09:03→17:18)
[2020-01-15] MEDS: DABIGATRAN ETEXILATE 75 MG CAP PO SCH (09:03)
[2020-01-15] MEDS: GLIPIZIDE 5 MG TAB PO SCH (09:03)
[2020-01-15] MEDS: FUROSEMIDE 40 MG TAB PO SCH (09:03)
[2020-01-15] MEDS: ZINC SULFATE 220 MG CAP PO SCH (09:03)
[2020-01-15] MEDS: METOPROLOL SUCCINATE 50 MG TAB XL PO SCH ×2 (09:03→20:55)
[2020-01-15] MEDS: INSULIN LISPRO 100 UNIT/1 ML 3ML VIAL SQ SCH ×4 (09:04→21:36)
[2020-01-15] MEDS: COLLAGENASE 5 GM TUBE TP SCH ×2 (09:23→22:25)
[2020-01-15] MEDS: CEFTRIAXONE SOD 1 GM/NS 50 ML 50 ML IV SCH (12:40)
[2020-01-15 18:27] LABS: CLARITY,URINE SL CLOUDY (CLEAR); COLOR,URINE STRAW (YELLOW); KETONES,URINE NEGATIVE (NEGATIVE); LEUKOCYTE ESTERASE ,URINE NEGATIVE (NEGATIVE); NITRITE,URINE NEGATIVE (NEGATIVE); PROTEIN,URINE DIPSTICK NEGATIVE (NEGATIVE); URINE UROBILINOGEN 0.2 mg/dL (0.2 - 1)
[2020-01-15 18:28] LABS: BILIRUBIN,URINE NEGATIVE (NEGATIVE)
[2020-01-15 18:48] LABS: BACTERIA,URINE FEW /HPF; RBC,URINE 0-5 /HPF (0-5)
[2020-01-15] MEDS: ATORVASTATIN 40 MG TAB PO SCH (20:55)
[2020-01-15] MEDS: TAMOXIFEN CITRATE 10 MG TAB PO SCH (20:55)
[2020-01-15] MEDS: INSULIN GLARGINE 100 UNITS/ML VIAL SQ SCH (21:40)
[2020-01-16] VITALS (9 sets, daily range): BP systolic 116–135; BP diastolic 65–78
[2020-01-16] MEDS ORDERED: SODIUM CHLORIDE 0.9% 250ML 250 ML ONE (01:15)
[2020-01-16] MEDS: LINEZOLID 600 MG/D5W 300ML 300 ML IV SCH ×2 (01:27→13:45)
[2020-01-16 06:53] LABS: ALBUMIN 2.7 g/dL (3.5-5.0); ALBUMIN/GLOBULIN RATIO 0.9 (0.8-2.0); ANION GAP 10.2 mmol/L (8-16); CALCIUM 8.6 mg/dL (8.4-10.2); CREATININE, SERUM 1.47 mg/dL (0.72-1.25); POTASSIUM 4.2 mmol/L (3.5-5.1)
[2020-01-16] MEDS: INSULIN LISPRO 100 UNIT/1 ML 3ML VIAL SQ SCH ×4 (07:30→21:00)
[2020-01-16] MEDS: PANTOPRAZOLE SOD 40 MG TABEC PO SCH ×2 (08:19→17:22)
[2020-01-16] MEDS: ZINC SULFATE 220 MG CAP PO SCH (08:19)
[2020-01-16] MEDS: GLIPIZIDE 5 MG TAB PO SCH (08:19)
[2020-01-16] MEDS: METOPROLOL SUCCINATE 50 MG TAB XL PO SCH ×2 (08:20→21:00)
[2020-01-16] MEDS: COLLAGENASE 5 GM TUBE TP SCH ×2 (09:43→21:00)
[2020-01-16] MEDS: CEFTRIAXONE SOD 1 GM/NS 50 ML 50 ML IV SCH (12:16)
[2020-01-16] MEDS: ACETYLCYSTEINE 200 MG/ML 4ML VIAL PO SCH (16:00)
[2020-01-16] MEDS: TAMOXIFEN CITRATE 10 MG TAB PO SCH (21:00)
[2020-01-16] MEDS: ATORVASTATIN 40 MG TAB PO SCH (21:00)
[2020-01-16] MEDS: INSULIN GLARGINE 100 UNITS/ML VIAL SQ SCH (21:00)
[2020-01-16] MEDS: SODIUM CHLORIDE 0.9% 1000ML 1,000 ML IV SCH (22:00)
[2020-01-17] VITALS (25 sets, daily range): BP systolic 120–158; BP diastolic 54–96
[2020-01-17] MEDS: LINEZOLID 600 MG/D5W 300ML 300 ML IV SCH ×2 (00:37→13:56)
[2020-01-17] MEDS: SODIUM CHLORIDE 0.9% 1000ML 1,000 ML IV SCH ×3 (05:13→20:15)
[2020-01-17 06:18] LABS: BASOPHILS # (AUTO) 0.1 (0.0-0.1); BASOPHILS % 0.9 % (0.0-1.0); EOSINOPHILS # (AUTO) 0.2 (0.0-0.4); EOSINOPHILS % 3.3 % (0.0-6.0); HEMATOCRIT 39.8 % (38.2-49.6); HEMOGLOBIN 13.1 g/dL (14.0-18.0); LYMPHOCYTES # (AUTO) 1.4 (1.0-3.2); LYMPHOCYTES % 24.7 % (18.0-39.1); MEAN CORPUSCULAR HEMOGLOBIN 32.4 pg (28-32); MEAN CORPUSCULAR HGB CONC 32.9 g/dL (31-35); MEAN CORPUSCULAR VOLUME 98.5 fL (81-99); MONOCYTES # (AUTO) 0.5 (0.2-0.8); MONOCYTES % 9.1 % (4.4-11.3); NEUTROPHILS # (AUTO) 3.4 (2.1-6.9); NEUTROPHILS % 61.6 % (38.7-80.0); PLATELET COUNT 185 x10e3/uL (140-360); RED BLOOD COUNT 4.04 x10e6/uL (4.3-5.7); RED CELL DISTRIBUTION WIDTH 14.6 % (11.7-14.4)
[2020-01-17 06:41] LABS: ANION GAP 12.2 mmol/L (8-16); CALCIUM 8.4 mg/dL (8.4-10.2); CREATININE, SERUM 1.32 mg/dL (0.72-1.25); POTASSIUM 4.2 mmol/L (3.5-5.1)
[2020-01-17] MEDS: INSULIN LISPRO 100 UNIT/1 ML 3ML VIAL SQ SCH ×4 (07:30→21:00)
[2020-01-17] MEDS ORDERED: LIDOCAINE HCL 2% LOCAL 20 ML VIAL ONE (08:08)
[2020-01-17] MEDS ORDERED: HEPARIN SOD/SOD CHLORIDE 2,000 ML ONE (08:08)
[2020-01-17] MEDS ORDERED: MIDAZOLAM HCL 2 MG/2 ML VIAL ONE (08:17)
[2020-01-17] MEDS ORDERED: HEPARIN SOD (PORCINE) 1000 UNIT/ML 30ML ONE (08:17)
[2020-01-17] MEDS ORDERED: IOPAMIDOL 300MG/ML 100 ML INFUS..BTL IV ONE (08:18)
[2020-01-17] MEDS ORDERED: NITROGLYCERIN/D5W 200 MCG/ML 250 ML ONE (08:18)
[2020-01-17] MEDS ORDERED: FENTANYL CITRATE/PF 100MCG/2 ML INJ ONE (08:18)
[2020-01-17] MEDS: ACETYLCYSTEINE 200 MG/ML 4ML VIAL PO SCH ×4 (09:00→17:00)
[2020-01-17] MEDS: PANTOPRAZOLE SOD 40 MG TABEC PO SCH ×2 (09:00→17:04)
[2020-01-17] MEDS: GLIPIZIDE 5 MG TAB PO SCH (09:00)
[2020-01-17] MEDS ORDERED: HYDROCODONE/APAP 5MG-325MG TAB PO PRN (09:30)
[2020-01-17] MEDS: METOPROLOL SUCCINATE 50 MG TAB XL PO SCH ×2 (13:00→21:00)
[2020-01-17] MEDS: ZINC SULFATE 220 MG CAP PO SCH (13:28)
[2020-01-17] MEDS: ASPIRIN 81 MG CHEW TAB PO SCH (13:28)
[2020-01-17] MEDS: CEFTRIAXONE SOD 1 GM/NS 50 ML 50 ML IV SCH (13:28)
[2020-01-17] MEDS: COLLAGENASE 5 GM TUBE TP SCH ×2 (14:09→21:00)
[2020-01-17] MEDS ORDERED: ONDANSETRON HCL 4 MG ORAL DISINTEGRATING TAB PO PRN (19:30)
[2020-01-17] MEDS: ATORVASTATIN 40 MG TAB PO SCH (20:33)
[2020-01-17] MEDS: TAMOXIFEN CITRATE 10 MG TAB PO SCH (20:33)
[2020-01-17] MEDS: INSULIN GLARGINE 100 UNITS/ML VIAL SQ SCH (21:00)
[2020-01-18] VITALS (9 sets, daily range): BP systolic 128–145; BP diastolic 63–82
[2020-01-18] MEDS: SODIUM CHLORIDE 0.9% 1000ML 1,000 ML IV SCH (03:46)
[2020-01-18] MEDS: INSULIN LISPRO 100 UNIT/1 ML 3ML VIAL SQ SCH ×4 (07:30→22:00)
[2020-01-18] MEDS: METOPROLOL SUCCINATE 50 MG TAB XL PO SCH ×2 (09:24→22:00)
[2020-01-18] MEDS: GLIPIZIDE 5 MG TAB PO SCH (09:24)
[2020-01-18] MEDS: COLLAGENASE 5 GM TUBE TP SCH ×2 (09:24→19:00)
[2020-01-18] MEDS: PANTOPRAZOLE SOD 40 MG TABEC PO SCH ×2 (09:24→16:30)
[2020-01-18] MEDS: ZINC SULFATE 220 MG CAP PO SCH (09:24)
[2020-01-18] MEDS: ASPIRIN 81 MG CHEW TAB PO SCH (09:24)
[2020-01-18] MEDS: ACETYLCYSTEINE 200 MG/ML 4ML VIAL PO SCH (09:24)
[2020-01-18] MEDS ORDERED: SODIUM CHLORIDE 0.9% 250ML 250 ML ONE (11:20)
[2020-01-18] MEDS: CEFTRIAXONE SOD 1 GM/NS 50 ML 50 ML IV SCH (12:17)
[2020-01-18] MEDS: INSULIN GLARGINE 100 UNITS/ML VIAL SQ SCH (22:00)
[2020-01-18] MEDS: ATORVASTATIN 40 MG TAB PO SCH (22:00)
[2020-01-18] MEDS: TAMOXIFEN CITRATE 10 MG TAB PO SCH (22:00)
[2020-01-19 04:40] VITALS: BP 129/82
[2020-01-19] MEDS: INSULIN LISPRO 100 UNIT/1 ML 3ML VIAL SQ SCH ×4 (07:30→22:36)
[2020-01-19] MEDS: ASPIRIN 81 MG CHEW TAB PO SCH (08:20)
[2020-01-19] MEDS: PANTOPRAZOLE SOD 40 MG TABEC PO SCH ×2 (08:20→16:40)
[2020-01-19] MEDS: ZINC SULFATE 220 MG CAP PO SCH (08:20)
[2020-01-19] MEDS: GLIPIZIDE 5 MG TAB PO SCH (08:20)
[2020-01-19 08:24] VITALS: BP 145/91
[2020-01-19] MEDS: COLLAGENASE 5 GM TUBE TP SCH ×2 (09:00→21:00)
[2020-01-19] MEDS: METOPROLOL SUCCINATE 50 MG TAB XL PO SCH ×2 (09:11→22:25)
[2020-01-19 09:14] VITALS: BP 145/91
[2020-01-19] MEDS ORDERED: BUPIVACAINE HCL 0.5% INJ 30 ML VIAL INJ ONE (10:02)
[2020-01-19] MEDS ORDERED: CEFTRIAXONE SOD 1 GM/NS 50 ML 50 ML IV ONE (11:51)
[2020-01-19] MEDS ORDERED: DEXTROSE 5% 250ML 250 ML IV ONE (11:51)
[2020-01-19] MEDS: CEFTRIAXONE SOD 1 GM/NS 50 ML 50 ML IV SCH (12:30)
[2020-01-19 17:04] VITALS: BP 104/80
[2020-01-19] MEDS ORDERED: MIDAZOLAM HCL 2 MG/2 ML VIAL ONE (17:54)
[2020-01-19] MEDS ORDERED: FENTANYL CITRATE/PF 100MCG/2 ML INJ ONE (17:54)
[2020-01-19 18:22] LABS: ANION GAP 13.1 mmol/L (8-16); CALCIUM 8.5 mg/dL (8.4-10.2); CREATININE, SERUM 1.35 mg/dL (0.72-1.25); POTASSIUM 4.1 mmol/L (3.5-5.1)
[2020-01-19 20:00] VITALS: BP 118/66
[2020-01-19] MEDS: TAMOXIFEN CITRATE 10 MG TAB PO SCH (22:25)
[2020-01-19] MEDS: ATORVASTATIN 40 MG TAB PO SCH (22:25)
[2020-01-19 22:30] VITALS: BP 118/66
[2020-01-19] MEDS: INSULIN GLARGINE 100 UNITS/ML VIAL SQ SCH (22:36)
[2020-01-20] VITALS (9 sets, daily range): BP systolic 111–148; BP diastolic 60–81
[2020-01-20] MEDS: INSULIN LISPRO 100 UNIT/1 ML 3ML VIAL SQ SCH ×4 (07:30→21:02)
[2020-01-20] MEDS: ASPIRIN 81 MG CHEW TAB PO SCH (08:38)
[2020-01-20] MEDS: GLIPIZIDE 5 MG TAB PO SCH (08:39)
[2020-01-20] MEDS: COLLAGENASE 5 GM TUBE TP SCH (08:40)
[2020-01-20] MEDS: METOPROLOL SUCCINATE 50 MG TAB XL PO SCH ×2 (08:40→21:03)
[2020-01-20] MEDS: ZINC SULFATE 220 MG CAP PO SCH (08:40)
[2020-01-20] MEDS: PANTOPRAZOLE SOD 40 MG TABEC PO SCH ×2 (08:40→17:46)
[2020-01-20] MEDS: CEFTRIAXONE SOD 1 GM/NS 50 ML 50 ML IV SCH (12:01)
[2020-01-20] MEDS: SODIUM BICARBONATE 650 MG TAB PO SCH (17:46)
[2020-01-20] MEDS: INSULIN GLARGINE 100 UNITS/ML VIAL SQ SCH (21:02)
[2020-01-20] MEDS: TAMOXIFEN CITRATE 10 MG TAB PO SCH (21:03)
[2020-01-20] MEDS: ATORVASTATIN 40 MG TAB PO SCH (21:03)
[2020-01-21] VITALS (7 sets, daily range): BP systolic 124–152; BP diastolic 67–90
[2020-01-21] MEDS: INSULIN LISPRO 100 UNIT/1 ML 3ML VIAL SQ SCH ×4 (07:30→22:14)
[2020-01-21] MEDS: ASPIRIN 81 MG CHEW TAB PO SCH (09:38)
[2020-01-21] MEDS: GLIPIZIDE 5 MG TAB PO SCH (09:39)
[2020-01-21] MEDS: ZINC SULFATE 220 MG CAP PO SCH (09:39)
[2020-01-21] MEDS: PANTOPRAZOLE SOD 40 MG TABEC PO SCH ×2 (09:39→16:26)
[2020-01-21] MEDS: SODIUM BICARBONATE 650 MG TAB PO SCH ×2 (09:39→16:26)
[2020-01-21] MEDS: METOPROLOL SUCCINATE 50 MG TAB XL PO SCH ×2 (09:40→22:10)
[2020-01-21] MEDS: CEFTRIAXONE SOD 1 GM/NS 50 ML 50 ML IV SCH (12:08)
[2020-01-21] MEDS: ATORVASTATIN 40 MG TAB PO SCH (22:00)
[2020-01-21] MEDS: TAMOXIFEN CITRATE 10 MG TAB PO SCH (22:00)
[2020-01-21] MEDS: INSULIN GLARGINE 100 UNITS/ML VIAL SQ SCH (22:13)
[2020-01-22 01:42] VITALS: BP 131/72
[2020-01-22 05:44] VITALS: BP 137/95
[2020-01-22 07:06] LABS: BASOPHILS # (AUTO) 0.1 (0.0-0.1); BASOPHILS % 0.7 % (0.0-1.0); EOSINOPHILS # (AUTO) 0.2 (0.0-0.4); EOSINOPHILS % 2.8 % (0.0-6.0); HEMOGLOBIN 12.1 g/dL (14.0-18.0); LYMPHOCYTES # (AUTO) 1.7 (1.0-3.2); LYMPHOCYTES % 23.5 % (18.0-39.1); MEAN CORPUSCULAR HEMOGLOBIN 31.4 pg (28-32); MEAN CORPUSCULAR HGB CONC 32.7 g/dL (31-35); MEAN CORPUSCULAR VOLUME 96.1 fL (81-99); MONOCYTES # (AUTO) 0.8 (0.2-0.8); MONOCYTES % 10.6 % (4.4-11.3); NEUTROPHILS # (AUTO) 4.4 (2.1-6.9); NEUTROPHILS % 61.6 % (38.7-80.0); PLATELET COUNT 159 x10e3/uL (140-360); RED BLOOD COUNT 3.85 x10e6/uL (4.3-5.7); RED CELL DISTRIBUTION WIDTH 14.5 % (11.7-14.4)
[2020-01-22] MEDS: INSULIN LISPRO 100 UNIT/1 ML 3ML VIAL SQ SCH ×3 (07:30→16:30)
[2020-01-22 07:32] LABS: ALBUMIN 2.7 g/dL (3.5-5.0); CALCIUM 8.4 mg/dL (8.4-10.2); CREATININE, SERUM 1.25 mg/dL (0.72-1.25)
[2020-01-22] MEDS: ZINC SULFATE 220 MG CAP PO SCH (08:19)
[2020-01-22] MEDS: PANTOPRAZOLE SOD 40 MG TABEC PO SCH ×2 (08:21→16:26)
[2020-01-22] MEDS: GLIPIZIDE 5 MG TAB PO SCH (08:21)
[2020-01-22] MEDS: ASPIRIN 81 MG CHEW TAB PO SCH (08:21)
[2020-01-22] MEDS: SODIUM BICARBONATE 650 MG TAB PO SCH ×2 (08:21→16:26)
[2020-01-22] MEDS: METOPROLOL SUCCINATE 50 MG TAB XL PO SCH (08:22)
[2020-01-22 08:29] VITALS: BP 138/82
[2020-01-22 08:30] VITALS: BP 138/82
[2020-01-22] MEDS ORDERED: ENOXAPARIN SODIUM INJ 100 MG/ML SYR SC SCH (09:00)
[2020-01-22] MEDS: CEFTRIAXONE SOD 1 GM/NS 50 ML 50 ML IV SCH (11:44)
[2020-01-22 12:00] VITALS: BP 128/80
[2020-01-22 16:07] VITALS: BP 148/64
[2020-01-22] MEDS ORDERED: DOXYCYCLINE HY100 MG PO (17:25)
== END 2020-01-22 18:28 | disposition home or self-care (01) | DRG 854 ==
LOC: ER 17:03 → ERHOLD 18:18 → MED/SURG3 20:45
PROVIDERS: ADMIT Internal Medicine; ATTEND Internal Medicine
PROC: 0KBW0ZZ Excision of Left Foot Muscle, Open Approach (ICD-10-PCS; 2020-01-14)
PROC: 0KBW0ZZ Excision of Left Foot Muscle, Open Approach (ICD-10-PCS; 2020-01-17)
PROC: B41D1ZZ Fluoroscopy of Aorta and Bilateral Lower Extremity Arteries using Low Osmolar Contrast (ICD-10-PCS; 2020-01-17)
PROC: 0QBP0ZZ Excision of Left Metatarsal, Open Approach (ICD-10-PCS; principal; 2020-01-19 11:30)
DX: A41.9 Sepsis, unspecified organism (principal); N17.9 Acute kidney failure, unspecified; L97.425 Non-pressure chronic ulcer of left heel and midfoot with muscle involvement without evidence of necrosis; M86.8X7 Other osteomyelitis, ankle and foot; I70.92 Chronic total occlusion of artery of the extremities; L03.116 Cellulitis of left lower limb; E11.69 Type 2 diabetes mellitus with other specified complication; E11.51 Type 2 diabetes mellitus with diabetic peripheral angiopathy without gangrene; E11.621 Type 2 diabetes mellitus with foot ulcer; E11.22 Type 2 diabetes mellitus with diabetic chronic kidney disease; I12.9 Hypertensive chronic kidney disease with stage 1 through stage 4 chronic kidney disease, or unspecified chronic kidney disease; N18.30 Chronic kidney disease, stage 3 unspecified; E11.21 Type 2 diabetes mellitus with diabetic nephropathy; Z79.899 Other long term (current) drug therapy; I48.0 Paroxysmal atrial fibrillation; Z79.01 Long term (current) use of anticoagulants; Z95.0 Presence of cardiac pacemaker; Z89.422 Acquired absence of other left toe(s); Z89.421 Acquired absence of other right toe(s); Z85.3 Personal history of malignant neoplasm of breast; B96.5 Pseudomonas (aeruginosa) (mallei) (pseudomallei) as the cause of diseases classified elsewhere; E11.65 Type 2 diabetes mellitus with hyperglycemia
CPT/HCPCS: 36247; 36415; 71045; 75625; 75710; 80048; 80053; 81001; 82550; 82553; 82948; 83605; 83880; 84484; 85025; 85610; 85651; 85730; 86140; 87040; 87071; 87075; 87186; 87205; 88304; 88305; 88311; 93005; 93306; 93925; 96372; 99152; 99153; 99251; 99284; C1769; C1887; J0696; J1644; J1650; J1815; J2001; J2020; J2250; J2543; J3010; J3370; J7030; J7050; J7070; Q9967; U0002; V2790

== ENCOUNTER 2021-03-03 08:22 | Emergency (ER) | payer MEDICARE, OTHER ==
[~2021-03-03] VITALS: Ht 188 cm; Wt 100.7 kg
[2021-03-03] MEDS ORDERED: TETANUS/DIPHTHERIA TOX ADULT 0.5 ML SYR IM ONE (08:45)
[2021-03-03 10:20] VITALS: BP 143/85
== END 2021-03-03 10:27 | disposition home or self-care (01) ==
LOC: ER 08:30
DX: S00.31XA Abrasion of nose, initial encounter (principal); W01.0XXA Fall on same level from slipping, tripping and stumbling without subsequent striking against object, initial encounter; Y93.01 Activity, walking, marching and hiking; Y92.008 Other place in unspecified non-institutional (private) residence as the place of occurrence of the external cause; E11.9 Type 2 diabetes mellitus without complications; I48.91 Unspecified atrial fibrillation; I73.9 Peripheral vascular disease, unspecified; Z79.01 Long term (current) use of anticoagulants; Z85.3 Personal history of malignant neoplasm of breast; Z95.810 Presence of automatic (implantable) cardiac defibrillator
CPT/HCPCS: 70450; 70486; 72125; 90714; 99283

== ENCOUNTER → 2021-05-12 | Outpatient (CLI) | payer MEDICARE, OTHER | LOC: RAD 10:43 | PROVIDERS: ATTEND Nurse Practitioner Adult Health | DX: R60.0 Localized edema (principal); I70.201 Unspecified atherosclerosis of native arteries of extremities, right leg | CPT/HCPCS: 93926; 93971 ==

== ENCOUNTER 2021-08-29 10:58 | Inpatient (IN) | payer MEDICARE, OTHER ==
[2021-08-28 16:25] LABS: BASOPHILS # (AUTO) 0.1 (0.0-0.1); BASOPHILS % 0.7 % (0.0-1.0); EOSINOPHILS # (AUTO) 0.3 (0.0-0.4); EOSINOPHILS % 4.2 % (0.0-6.0); HEMATOCRIT 44.7 % (38.2-49.6); HEMOGLOBIN 14.3 g/dL (14.0-18.0); LYMPHOCYTES # (AUTO) 1.6 (1.0-3.2); LYMPHOCYTES % 19.3 % (18.0-39.1); MEAN CORPUSCULAR HEMOGLOBIN 32.2 pg (28-32); MEAN CORPUSCULAR VOLUME 100.7 fL (81-99); MONOCYTES # (AUTO) 0.8 (0.2-0.8); MONOCYTES % 10.3 % (4.4-11.3); NEUTROPHILS # (AUTO) 5.2 (2.1-6.9); NEUTROPHILS % 65.3 % (38.7-80.0); PLATELET COUNT 206 x10e3/uL (140-360); RED BLOOD COUNT 4.44 x10e6/uL (4.3-5.7); RED CELL DISTRIBUTION WIDTH 13.7 % (11.7-14.4)
[2021-08-28 16:39] LABS: ANION GAP 13.2 mmol/L (8-16); CALCIUM 8.8 mg/dL (8.4-10.2); CREATININE, SERUM 1.56 mg/dL (0.72-1.25); POTASSIUM 4.2 mmol/L (3.5-5.1)
[~2021-08-29] VITALS: Ht 188 cm; Wt 95.3 kg
[~2021-08-29 10:58] MED LIST changes: +AMOX TR-K CLV1 EAC1; +BIOTIN800 MCG; +COLACE100 MG PO; +COQ-10100 MG; +POTASSIUM; +XARELTO10 MG PO; +[UNRECOGNIZED DRUG - OTHER]; +[UNRECOGNIZED DRUG - OTHER]; +[UNRECOGNIZED DRUG - OTHER]
[2021-08-29] MEDS ORDERED: LIDOCAINE HCL 2% LOCAL INJ 5 ML SDV VIAL INJ ONE (13:59)
[2021-08-29] MEDS ORDERED: POVIDONE IODINE 0.05% 0.05 % ML PO ONE (13:59)
[2021-08-29] MEDS ORDERED: SEVOFLURANE INHAL SOLN 250 ML PEN BTL ONE (13:59)
[2021-08-29] MEDS ORDERED: ONDANSETRON HCL INJ 2MG/ML 2ML 2 MG/ML VIAL ONE (13:59)
[2021-08-29] MEDS ORDERED: PROPOFOL IV EMULSION 10 MG/ML 20 ML VIAL ONE (13:59)
[2021-08-29] MEDS ORDERED: DEXAMETHASONE SOD PHOS INJ 4 MG/ML SDV ONE (13:59)
[2021-08-29] MEDS ORDERED: NEOSTIGMINE 1 MG/ML 10ML VIAL ONE (15:25)
[2021-08-29] MEDS ORDERED: FENTANYL CITRATE/PF 100MCG/2 ML INJ ONE (15:38)
[2021-08-29] MEDS ORDERED: MIDAZOLAM HCL 2 MG/2 ML VIAL ONE (15:38)
[2021-08-29 16:45] VITALS: BP 129/77
[2021-08-29] MEDS ORDERED: MAGNESIUM HYDROXIDE 30 ML UDC PO PRN ×2 (16:45→17:00)
[2021-08-29] MEDS ORDERED: HYDROCODONE/APAP 5MG-325MG TAB PO PRN ×2 (16:45→17:00)
[2021-08-29] MEDS ORDERED: PROMETHAZINE 25MG/ NS 50ML (IV) IV PRN (16:45)
[2021-08-29] MEDS ORDERED: PROMETHAZINE 25MG/SOD CHL 0.9% 50 ML IV PRN (17:00)
[2021-08-29] MEDS ORDERED: BISMUTH SUBSALICYLATE 262 MG/15 ML 8OZ BTL PO PRN (17:00)
[2021-08-29] MEDS ORDERED: PROMETHAZINE HCL 25 MG SUPP PR PRN (17:00)
[2021-08-29] MEDS ORDERED: SODIUM CHLORIDE 0.9% 250ML 250 ML ONE (17:36)
[2021-08-29 18:46] LABS: BASOPHILS # (AUTO) 0.1 (0.0-0.1); BASOPHILS % 0.7 % (0.0-1.0); EOSINOPHILS # (AUTO) 0.2 (0.0-0.4); EOSINOPHILS % 2.9 % (0.0-6.0); HEMATOCRIT 46.2 % (38.2-49.6); HEMOGLOBIN 14.5 g/dL (14.0-18.0); LYMPHOCYTES # (AUTO) 0.9 (1.0-3.2); LYMPHOCYTES % 12.9 % (18.0-39.1); MEAN CORPUSCULAR HEMOGLOBIN 32.6 pg (28-32); MEAN CORPUSCULAR HGB CONC 31.4 g/dL (31-35); MONOCYTES # (AUTO) 0.3 (0.2-0.8); MONOCYTES % 4.8 % (4.4-11.3); NEUTROPHILS # (AUTO) 5.4 (2.1-6.9); NEUTROPHILS % 78.1 % (38.7-80.0); PLATELET COUNT 197 x10e3/uL (140-360); RED BLOOD COUNT 4.45 x10e6/uL (4.3-5.7); RED CELL DISTRIBUTION WIDTH 13.7 % (11.7-14.4)
[2021-08-29 18:53] LABS: MEAN CORPUSCULAR VOLUME 103.8 fL (81-99)
[2021-08-29 19:03] LABS: ANION GAP 13.5 mmol/L (8-16); CREATININE, SERUM 1.38 mg/dL (0.72-1.25); POTASSIUM 4.5 mmol/L (3.5-5.1)
[2021-08-29 19:04] LABS: ALBUMIN 3.3 g/dL (3.5-5.0); CALCIUM 8.9 mg/dL (8.4-10.2)
[2021-08-29 19:58] VITALS: BP 134/70
[2021-08-29 20:10] VITALS: BP 134/70
[2021-08-29] MEDS: BISMUTH SUBSALICYLATE 262 MG/15 ML 8OZ BTL PO SCH (21:00)
[2021-08-30] VITALS (7 sets, daily range): BP systolic 124–145; BP diastolic 60–81
[2021-08-30] MEDS ORDERED: DEXTROSE 50% SYRINGE 50 ML IV PRN (08:30)
[2021-08-30] MEDS: BISMUTH SUBSALICYLATE 262 MG/15 ML 8OZ BTL PO SCH ×3 (09:00→20:04)
[2021-08-30] MEDS: INSULIN LISPRO 100 UNIT/1 ML 3ML VIAL SQ SCH ×4 (09:09→21:26)
[2021-08-30] MEDS: METOPROLOL SUCCINATE 50 MG TAB XL PO SCH (09:39)
[2021-08-30] MEDS: GLIPIZIDE 5 MG TAB PO SCH ×2 (09:39→17:00)
[2021-08-31] VITALS (7 sets, daily range): BP systolic 125–145; BP diastolic 60–82
[2021-08-31] MEDS: INSULIN LISPRO 100 UNIT/1 ML 3ML VIAL SQ SCH ×4 (08:00→21:00)
[2021-08-31] MEDS: BISMUTH SUBSALICYLATE 262 MG/15 ML 8OZ BTL PO SCH ×3 (09:00→20:10)
[2021-08-31] MEDS: METOPROLOL SUCCINATE 50 MG TAB XL PO SCH (09:26)
[2021-08-31] MEDS: GLIPIZIDE 5 MG TAB PO SCH ×2 (09:26→17:31)
[2021-09-01] VITALS (8 sets, daily range): BP systolic 133–153; BP diastolic 65–83
[2021-09-01] MEDS: BISMUTH SUBSALICYLATE 262 MG/15 ML 8OZ BTL PO SCH ×3 (09:00→21:00)
[2021-09-01] MEDS: GLIPIZIDE 5 MG TAB PO SCH ×2 (09:17→17:30)
[2021-09-01] MEDS ORDERED: ATORVASTATIN CA10 MG PO (09:17)
[2021-09-01] MEDS: METOPROLOL SUCCINATE 50 MG TAB XL PO SCH (09:17)
[2021-09-01] MEDS: INSULIN LISPRO 100 UNIT/1 ML 3ML VIAL SQ SCH ×4 (09:29→21:19)
[2021-09-01] MEDS: RIVAROXABAN 10 MG TABLET PO SCH (13:58)
[2021-09-02] VITALS (8 sets, daily range): BP systolic 126–152; BP diastolic 68–85
[2021-09-02] MEDS: BISMUTH SUBSALICYLATE 262 MG/15 ML 8OZ BTL PO SCH ×3 (09:00→21:00)
[2021-09-02] MEDS: METOPROLOL SUCCINATE 50 MG TAB XL PO SCH (09:11)
[2021-09-02] MEDS: GLIPIZIDE 5 MG TAB PO SCH ×2 (09:11→17:14)
[2021-09-02] MEDS: INSULIN LISPRO 100 UNIT/1 ML 3ML VIAL SQ SCH ×4 (09:41→21:11)
[2021-09-02] MEDS: RIVAROXABAN 10 MG TABLET PO SCH (17:14)
[2021-09-03] VITALS (9 sets, daily range): BP systolic 119–141; BP diastolic 53–70
[2021-09-03] MEDS: INSULIN LISPRO 100 UNIT/1 ML 3ML VIAL SQ SCH ×4 (07:30→21:12)
[2021-09-03] MEDS: BISMUTH SUBSALICYLATE 262 MG/15 ML 8OZ BTL PO SCH ×3 (09:00→19:39)
[2021-09-03] MEDS: METOPROLOL SUCCINATE 50 MG TAB XL PO SCH (09:04)
[2021-09-03] MEDS: GLIPIZIDE 5 MG TAB PO SCH ×2 (09:04→17:06)
[2021-09-03] MEDS: CEFTRIAXONE 2 GM in SODIUM CHLORIDE 0.9% 100 ML IV SCH (15:26)
[2021-09-03] MEDS: RIVAROXABAN 10 MG TABLET PO SCH (17:06)
[2021-09-04 04:00] VITALS: BP 132/71
[2021-09-04] MEDS: INSULIN LISPRO 100 UNIT/1 ML 3ML VIAL SQ SCH ×3 (07:30→16:30)
[2021-09-04 08:09] VITALS: BP 137/59
[2021-09-04] MEDS: BISMUTH SUBSALICYLATE 262 MG/15 ML 8OZ BTL PO SCH ×2 (08:24→15:00)
[2021-09-04] MEDS: GLIPIZIDE 5 MG TAB PO SCH ×2 (08:24→16:54)
[2021-09-04] MEDS: METOPROLOL SUCCINATE 50 MG TAB XL PO SCH (08:24)
[2021-09-04 08:25] VITALS: BP 137/59
[2021-09-04 12:08] VITALS: BP 132/65
[2021-09-04 16:16] VITALS: BP 129/60
[2021-09-04] MEDS: RIVAROXABAN 10 MG TABLET PO SCH (16:54)
[2021-09-04] MEDS: CEFTRIAXONE 2 GM in SODIUM CHLORIDE 0.9% 100 ML IV SCH (16:54)
== END 2021-09-04 18:30 | disposition home or self-care (01) | DRG 638 ==
LOC: OR 10:58 → PACU V 15:48 → MED/SURG3 16:44
PROVIDERS: ADMIT Internal Medicine; ATTEND Internal Medicine
PROC: 0J9Q0ZZ Drainage of Right Foot Subcutaneous Tissue and Fascia, Open Approach (ICD-10-PCS; principal; 2021-08-29 15:25)
PROC: 06HY33Z Insertion of Infusion Device into Lower Vein, Percutaneous Approach (ICD-10-PCS; 2021-09-04)
DX: E11.69 Type 2 diabetes mellitus with other specified complication (principal); E11.52 Type 2 diabetes mellitus with diabetic peripheral angiopathy with gangrene; L02.611 Cutaneous abscess of right foot; L03.115 Cellulitis of right lower limb; M86.8X7 Other osteomyelitis, ankle and foot; I48.20 Chronic atrial fibrillation, unspecified; T82.858A Stenosis of other vascular prosthetic devices, implants and grafts, initial encounter; I96 Gangrene, not elsewhere classified; E11.42 Type 2 diabetes mellitus with diabetic polyneuropathy; E11.621 Type 2 diabetes mellitus with foot ulcer; E11.319 Type 2 diabetes mellitus with unspecified diabetic retinopathy without macular edema; E11.22 Type 2 diabetes mellitus with diabetic chronic kidney disease; I13.10 Hypertensive heart and chronic kidney disease without heart failure, with stage 1 through stage 4 chronic kidney disease, or unspecified chronic kidney disease; N18.30 Chronic kidney disease, stage 3 unspecified; E78.5 Hyperlipidemia, unspecified; Z88.8 Allergy status to other drugs, medicaments and biological substances; Z95.0 Presence of cardiac pacemaker; Z85.51 Personal history of malignant neoplasm of bladder; Z20.822 Contact with and (suspected) exposure to COVID-19; Z79.4 Long term (current) use of insulin
CPT/HCPCS: 36415; 71046; 80048; 80053; 82948; 85025; 87040; 87071; 87075; 87205; 93005; 97139; J0690; J0696; J1100; J2001; J2250; J2405; J2543; J2710; J3010; J7050; U0002

== ENCOUNTER 2021-09-16 17:21 | Emergency (ER) | payer MEDICARE, OTHER ==
[~2021-09-16] VITALS: Ht 188 cm; Wt 97.1 kg
[~2021-09-16 17:21] MED LIST changes: +ATORVASTATIN CA10 MG PO
== END 2021-09-16 18:06 | disposition home or self-care (01) ==
LOC: FSED 17:58
DX: S61.211A Laceration without foreign body of left index finger without damage to nail, initial encounter (principal); W26.0XXA Contact with knife, initial encounter; Y92.89 Other specified places as the place of occurrence of the external cause; E11.9 Type 2 diabetes mellitus without complications; E78.5 Hyperlipidemia, unspecified; N28.9 Disorder of kidney and ureter, unspecified; Z95.810 Presence of automatic (implantable) cardiac defibrillator; Z85.3 Personal history of malignant neoplasm of breast
CPT/HCPCS: 99282

== ENCOUNTER 2023-05-09 18:58 | Emergency (ER) | payer MEDICARE, OTHER ==
[~2023-05-09] VITALS: Ht 180.3 cm; Wt 82.6 kg
[~2023-05-09 18:58] MED LIST changes: +FAMOTIDINE20 MG PO; +GAS X PO; +LANTUS 3ML100 UNITS/ SQ; +LISINOPRIL5 MG PO; +SUCRALFATE1 GM PO
[2023-05-09 19:32] VITALS: O2SAT 100
== END 2023-05-09 20:00 | disposition home or self-care (01) ==
LOC: ER 19:08
DX: Z45.2 Encounter for adjustment and management of vascular access device (principal)
CPT/HCPCS: 99283

== ENCOUNTER → 2023-11-29 | Outpatient (REF) | payer MEDICARE, OTHER ==
[~2023-11-29] MED LIST changes: +AMOXICILLI400 MG/5 M PO; +CLINDAMYCI75 MG/5 ML GT
== END ==
LOC: DX 12:53
PROVIDERS: ATTEND Internal Medicine Infectious Disease
DX: L03.311 Cellulitis of abdominal wall (principal)
CPT/HCPCS: 36589

== ENCOUNTER 2024-02-17 11:26 | Inpatient (IN) | payer MEDICARE, OTHER ==
[2024-02-17] VITALS (11 sets, daily range): BP systolic 94–120; BP diastolic 44–53; PULSE 38–140; RESP 13–20; TEMP 97.6–99.1; O2SAT 96–100
[~2024-02-17] VITALS: Ht 188 cm; Wt 89.0 kg
[2024-02-17 12:20] LABS: BASOPHILS % 0.1 % (0.0-1.0); HEMATOCRIT 28.9 % (38.2-49.6); HEMOGLOBIN 9.3 g/dL (14.0-18.0); LYMPHOCYTES # (AUTO) 0.2 (1.0-3.2); LYMPHOCYTES % 0.7 % (18.0-39.1); MEAN CORPUSCULAR HEMOGLOBIN 32.2 pg (28-32); MEAN CORPUSCULAR HGB CONC 32.2 g/dL (31-35); MONOCYTES # (AUTO) 0.7 (0.2-0.8); MONOCYTES % 3.1 % (4.4-11.3); NEUTROPHILS % 94.5 % (38.7-80.0); PLATELET COUNT 288 x10e3/uL (140-360); RED BLOOD COUNT 2.89 x10e6/uL (4.3-5.7); RED CELL DISTRIBUTION WIDTH 17.3 % (11.7-14.4); WHITE BLOOD COUNT 23.24 x10e3/uL (4.8-10.8)
[2024-02-17 12:34] LABS: INR 3.09; PROTHROMBIN TIME 33.3 seconds (11.9-14.5)
[2024-02-17 12:35] LABS: PARTIAL THROMBOPLASTIN TIME 37.7 seconds (23.8-35.5)
[2024-02-17 12:46] LABS: ALBUMIN 2.7 g/dL (3.5-5.0); ALBUMIN/GLOBULIN RATIO 1.1 (0.8-2.0); ANION GAP 13.5 mmol/L (8-16); BILIRUBIN,TOTAL 1.5 mg/dL (0.2-1.2); CALCIUM 8.8 mg/dL (8.4-10.2); CREATININE, SERUM 1.32 mg/dL (0.72-1.25); MAGNESIUM 1.9 MG/DL (1.3-2.1); POTASSIUM 4.5 mmol/L (3.5-5.1); TOTAL PROTEIN 5.2 g/dL (6.5-8.1)
[2024-02-17] MEDS: ONDANSETRON HCL INJ 2MG/ML 2ML 2 MG/ML VIAL IV STA (12:51)
[2024-02-17] MEDS: SODIUM CHLORIDE 0.9% 1000ML 1,000 ML IV STA ×2 (12:51→14:16)
[2024-02-17 12:52] LABS: TROPONIN I 0.293 ng/mL (0-0.300)
[2024-02-17] MEDS: Vancomycin IV 1 GM in SODIUM CHLORIDE 0.9% 250ML 250 ML IV ONE (14:13)
[2024-02-17] MEDS: SODIUM CHLORIDE 0.9% 500ML 500 ML IV ONE (14:14)
[2024-02-17] MEDS: ACETAMINOPHEN 325 MG TAB PO ONE (16:22)
[2024-02-17] MEDS: SODIUM CHLORIDE 0.9% 1000ML 1,000 ML IV SCH (17:28)
[2024-02-17] MEDS ORDERED: COMPAZINE25 MG PO (18:39)
[2024-02-17] MEDS ORDERED: CARAFATE1 GM/10 ML PO (18:39)
[2024-02-17] MEDS ORDERED: ULTRAM 50MG50 MG PO (18:39)
[2024-02-17] MEDS ORDERED: ACETAMINOPHEN325 M1 PO (18:39)
[2024-02-17] MEDS ORDERED: ONDANSETRON ODT8 MG PO (18:39)
[2024-02-17] MEDS ORDERED: DIGOXIN125 MCG PO (18:39)
[2024-02-17] MEDS ORDERED: BICARSIM FORTE125 MG PO (18:39)
[2024-02-17] MEDS ORDERED: XARELTO20 MG PO (18:39)
[2024-02-17 20:42] LABS: TROPONIN I 0.145 ng/mL (0-0.300)
[2024-02-17 22:54] LABS: BILIRUBIN,URINE NEGATIVE (NEGATIVE); CLARITY,URINE CLEAR (CLEAR); COLOR,URINE AMBER (YELLOW); GLUCOSE, URINE 2+ (NEGATIVE); KETONES,URINE NEGATIVE (NEGATIVE); LEUKOCYTE ESTERASE ,URINE NEGATIVE (NEGATIVE); NITRITE,URINE NEGATIVE (NEGATIVE); PH,URINE 5.5 (5 - 7); PROTEIN,URINE DIPSTICK 1+ (NEGATIVE); URINE UROBILINOGEN 0.2 mg/dL (0.2 - 1)
[2024-02-17 23:13] LABS: BACTERIA,URINE MANY /HPF; EPITHELIAL CELLS,URINE FEW /LPF; RBC,URINE 0-5 /HPF (0-5); WBC,URINE (MAN) 0-5 /HPF (0-5)
[2024-02-18] VITALS (13 sets, daily range): BP systolic 96–137; BP diastolic 44–69; PULSE 72–87; RESP 14–20; TEMP 97.2–97.9; O2SAT 96–100
[2024-02-18] MEDS: Vancomycin IV 1 GM in SODIUM CHLORIDE 0.9% 250ML 250 ML IV SCH (02:23)
[2024-02-18] MEDS: ACETAMINOPHEN 325 MG TAB PO PRN (06:37)
[2024-02-18 06:51] LABS: BASOPHILS % 0.1 % (0.0-1.0); EOSINOPHILS % 0.1 % (0.0-6.0); HEMATOCRIT 26.5 % (38.2-49.6); HEMOGLOBIN 8.3 g/dL (14.0-18.0); LYMPHOCYTES # (AUTO) 0.4 (1.0-3.2); LYMPHOCYTES % 2.1 % (18.0-39.1); MEAN CORPUSCULAR HEMOGLOBIN 31.9 pg (28-32); MEAN CORPUSCULAR HGB CONC 31.3 g/dL (31-35); MEAN CORPUSCULAR VOLUME 101.9 fL (81-99); MONOCYTES # (AUTO) 0.4 (0.2-0.8); NEUTROPHILS # (AUTO) 17.9 (2.1-6.9); NEUTROPHILS % 94.4 % (38.7-80.0); PLATELET COUNT 200 x10e3/uL (140-360); RED CELL DISTRIBUTION WIDTH 17.3 % (11.7-14.4); WHITE BLOOD COUNT 18.97 x10e3/uL (4.8-10.8)
[2024-02-18 07:19] LABS: ALBUMIN 2.1 g/dL (3.5-5.0); ALBUMIN/GLOBULIN RATIO 0.9 (0.8-2.0); ANION GAP 12.4 mmol/L (8-16); BILIRUBIN,TOTAL 1.1 mg/dL (0.2-1.2); CALCIUM 8.1 mg/dL (8.4-10.2); CHOL/HDL RATIO 2.1 (3.9-4.7); CREATININE, SERUM 1.09 mg/dL (0.72-1.25); POTASSIUM 4.4 mmol/L (3.5-5.1); TOTAL PROTEIN 4.4 g/dL (6.5-8.1)
[2024-02-18 07:27] LABS: TROPONIN I 0.098 ng/mL (0-0.300)
[2024-02-18] MEDS: FAMOTIDINE 20 MG TAB PO SCH (08:31)
[2024-02-18] MEDS: DOCUSATE SODIUM 100 MG CAP PO SCH (08:31)
[2024-02-18] MEDS: DIGOXIN 0.125 MG TAB PO SCH (08:31)
[2024-02-18] MEDS: SUCRALFATE 1 GM/10 ML SUSP PO SCH (08:31)
[2024-02-18] MEDS: PANTOPRAZOLE SOD 40 MG TABEC PO SCH (08:32)
[2024-02-18 08:59] LABS: BAND NEUTROPHILS % (MANUAL) 6 %; LYMPHOCYTES % (MANUAL) 6 % (19-48); NEUTROPHILS % (MANUAL) 88 % (40-74); PLATELET ESTIMATE ADEQUATE; PLATELET MORPHOLOGY COMMENT NORMAL; TOXIC GRANULATION MODERATE
[2024-02-18 09:00] LABS: HYPOCHROMASIA SLIGHT
[2024-02-18] MEDS: MIDODRINE HCL 5 MG TABLET PO SCH (16:45)
[2024-02-18] MEDS ORDERED: ALBUMIN 25% 25GM 100ML 0.25 GM/ML BTL IV ONE (17:30)
[2024-02-18] MEDS: ATORVASTATIN 40 MG TAB PO SCH (19:40)
[2024-02-18] MEDS: ALBUMIN 25% 25GM 100ML 100 ML IV ONE (19:40)
[2024-02-19] VITALS (21 sets, daily range): BP systolic 93–137; BP diastolic 40–55; PULSE 72–80; RESP 14–20; TEMP 97.3–98.3; O2SAT 98–100
[2024-02-19] MEDS ORDERED: IOPAMIDOL 370 MG/ML 100 ML INFUS..BTL INJ ONE (13:39)
[2024-02-20] VITALS (16 sets, daily range): BP systolic 119–140; BP diastolic 48–61; PULSE 75–82; RESP 15–22; TEMP 98–98.5; O2SAT 98–100
[2024-02-20 06:43] LABS: BASOPHILS % 0.1 % (0.0-1.0); EOSINOPHILS # (AUTO) 0.2 (0.0-0.4); EOSINOPHILS % 1.1 % (0.0-6.0); HEMATOCRIT 23.2 % (38.2-49.6); HEMOGLOBIN 7.4 g/dL (14.0-18.0); LYMPHOCYTES # (AUTO) 0.5 (1.0-3.2); LYMPHOCYTES % 3.2 % (18.0-39.1); MEAN CORPUSCULAR HEMOGLOBIN 32.2 pg (28-32); MEAN CORPUSCULAR HGB CONC 31.9 g/dL (31-35); MEAN CORPUSCULAR VOLUME 100.9 fL (81-99); MONOCYTES # (AUTO) 0.6 (0.2-0.8); NEUTROPHILS # (AUTO) 13.5 (2.1-6.9); NEUTROPHILS % 90.9 % (38.7-80.0); PLATELET COUNT 188 x10e3/uL (140-360); RED CELL DISTRIBUTION WIDTH 17.1 % (11.7-14.4)
[2024-02-20 07:04] LABS: ALBUMIN/GLOBULIN RATIO 0.8 (0.8-2.0); ANION GAP 11.1 mmol/L (8-16); BILIRUBIN,TOTAL 0.7 mg/dL (0.2-1.2); CALCIUM 8.2 mg/dL (8.4-10.2); CREATININE, SERUM 1.07 mg/dL (0.72-1.25); MAGNESIUM 1.9 MG/DL (1.3-2.1); POTASSIUM 4.1 mmol/L (3.5-5.1); TOTAL PROTEIN 4.6 g/dL (6.5-8.1)
[2024-02-20] MEDS: CEFTRIAXONE 2 GM in SODIUM CHLORIDE 0.9% 100 ML IV SCH (14:39)
[2024-02-20] MEDS: RIVAROXABAN 20 MG TABLET PO SCH (21:08)
[2024-02-21] VITALS (8 sets, daily range): BP systolic 129–149; BP diastolic 51–59; PULSE 74–77; RESP 17–22; TEMP 98.1–98.7; O2SAT 100
[2024-02-21 05:39] LABS: BASOPHILS % 0.1 % (0.0-1.0); EOSINOPHILS # (AUTO) 0.2 (0.0-0.4); EOSINOPHILS % 2.3 % (0.0-6.0); HEMATOCRIT 23.7 % (38.2-49.6); HEMOGLOBIN 7.4 g/dL (14.0-18.0); LYMPHOCYTES # (AUTO) 0.4 (1.0-3.2); LYMPHOCYTES % 4.7 % (18.0-39.1); MEAN CORPUSCULAR HEMOGLOBIN 31.9 pg (28-32); MEAN CORPUSCULAR HGB CONC 31.2 g/dL (31-35); MEAN CORPUSCULAR VOLUME 102.2 fL (81-99); MONOCYTES # (AUTO) 0.6 (0.2-0.8); MONOCYTES % 7.3 % (4.4-11.3); NEUTROPHILS # (AUTO) 7.1 (2.1-6.9); NEUTROPHILS % 85.4 % (38.7-80.0); PLATELET COUNT 177 x10e3/uL (140-360); RED BLOOD COUNT 2.32 x10e6/uL (4.3-5.7); RED CELL DISTRIBUTION WIDTH 16.9 % (11.7-14.4)
[2024-02-21 06:02] LABS: ALBUMIN/GLOBULIN RATIO 0.8 (0.8-2.0); ANION GAP 10.3 mmol/L (8-16); BILIRUBIN,TOTAL 0.6 mg/dL (0.2-1.2); CALCIUM 8.3 mg/dL (8.4-10.2); CREATININE, SERUM 0.95 mg/dL (0.72-1.25); MAGNESIUM 1.9 MG/DL (1.3-2.1); POTASSIUM 4.3 mmol/L (3.5-5.1); TOTAL PROTEIN 4.6 g/dL (6.5-8.1)
[2024-02-21] MEDS: ONDANSETRON HCL INJ 2MG/ML 2ML 2 MG/ML VIAL IV PRN (20:50)
[2024-02-22] VITALS (8 sets, daily range): BP systolic 126–146; BP diastolic 49–61; PULSE 74–80; RESP 18; TEMP 97.6–98.6; O2SAT 100
[2024-02-22 05:41] LABS: INR 2.96; PROTHROMBIN TIME 32.2 seconds (11.9-14.5)
[2024-02-23] VITALS: BP 138/56; PULSE 79; RESP 18; TEMP 97.7; O2SAT 100
[2024-02-23 04:00] VITALS: BP 138/58; PULSE 84; RESP 18; TEMP 98.4; O2SAT 100
[2024-02-23 05:41] LABS: BASOPHILS % 0.5 % (0.0-1.0); EOSINOPHILS # (AUTO) 0.2 (0.0-0.4); EOSINOPHILS % 5.4 % (0.0-6.0); HEMATOCRIT 23.5 % (38.2-49.6); HEMOGLOBIN 7.4 g/dL (14.0-18.0); LYMPHOCYTES # (AUTO) 0.4 (1.0-3.2); LYMPHOCYTES % 8.6 % (18.0-39.1); MEAN CORPUSCULAR HEMOGLOBIN 31.4 pg (28-32); MEAN CORPUSCULAR HGB CONC 31.5 g/dL (31-35); MEAN CORPUSCULAR VOLUME 99.6 fL (81-99); MONOCYTES # (AUTO) 0.6 (0.2-0.8); MONOCYTES % 13.3 % (4.4-11.3); NEUTROPHILS # (AUTO) 3.2 (2.1-6.9); NEUTROPHILS % 71.7 % (38.7-80.0); PLATELET COUNT 152 x10e3/uL (140-360); RED BLOOD COUNT 2.36 x10e6/uL (4.3-5.7); RED CELL DISTRIBUTION WIDTH 16.1 % (11.7-14.4); WHITE BLOOD COUNT 4.43 x10e3/uL (4.8-10.8)
[2024-02-23 06:08] LABS: ALBUMIN/GLOBULIN RATIO 0.8 (0.8-2.0); ANION GAP 10.4 mmol/L (8-16); BILIRUBIN,TOTAL 0.5 mg/dL (0.2-1.2); CALCIUM 8.2 mg/dL (8.4-10.2); CREATININE, SERUM 0.86 mg/dL (0.72-1.25); POTASSIUM 4.4 mmol/L (3.5-5.1); TOTAL PROTEIN 4.6 g/dL (6.5-8.1)
[2024-02-23 07:42] VITALS: BP 146/54; PULSE 74; RESP 19; TEMP 97.8; O2SAT 100
[2024-02-23 07:55] VITALS: BP 146/54; PULSE 74; RESP 19; TEMP 97.8; O2SAT 100
[2024-02-23] MEDS ORDERED: GUAIFENESIN/CODEINE 5 ML LIQD PO PRN (09:00)
[2024-02-23 11:46] VITALS: BP 137/49; PULSE 75; RESP 19; TEMP 98.3; O2SAT 100
[2024-02-23] MEDS: PREDNISONE 20 MG TAB PO ONE (12:32)
[2024-02-23] MEDS: FUROSEMIDE 20 MG TAB PO SCH (12:32)
[2024-02-23] MEDS ORDERED: IPRATROPIUM BROMIDE 0.02% 2.5 ML NEB NEB SCH (13:00)
[2024-02-23] MEDS ORDERED: LEVALBUTEROL HCL SOLN NEBU 0.63 MG/3 ML NEB INH SCH (13:00)
== END 2024-02-23 13:12 | disposition home or self-care (01) | DRG 872 ==
LOC: ER 12:08 → ERHOLD 16:07 → ICU 17:53 → MED/SURG 02-20 14:05
PROVIDERS: ADMIT Internal Medicine; ATTEND Internal Medicine
PROC: 3E0333Z Introduction of Anti-inflammatory into Peripheral Vein, Percutaneous Approach (ICD-10-PCS; principal; 2024-02-17)
DX: A41.54 Sepsis due to Acinetobacter baumannii (principal); J90 Pleural effusion, not elsewhere classified; L03.115 Cellulitis of right lower limb; L03.116 Cellulitis of left lower limb; E44.0 Moderate protein-calorie malnutrition; N17.9 Acute kidney failure, unspecified; R65.20 Severe sepsis without septic shock; E11.22 Type 2 diabetes mellitus with diabetic chronic kidney disease; E78.5 Hyperlipidemia, unspecified; N18.9 Chronic kidney disease, unspecified; I48.91 Unspecified atrial fibrillation; K21.9 Gastro-esophageal reflux disease without esophagitis; E88.09 Other disorders of plasma-protein metabolism, not elsewhere classified; F41.9 Anxiety disorder, unspecified; R53.1 Weakness; Z79.4 Long term (current) use of insulin; Z79.01 Long term (current) use of anticoagulants; Z79.84 Long term (current) use of oral hypoglycemic drugs; Z95.810 Presence of automatic (implantable) cardiac defibrillator; Z85.3 Personal history of malignant neoplasm of breast; Z85.01 Personal history of malignant neoplasm of esophagus; Z85.51 Personal history of malignant neoplasm of bladder; Z92.21 Personal history of antineoplastic chemotherapy; Z92.3 Personal history of irradiation; Z89.412 Acquired absence of left great toe; Z90.11 Acquired absence of right breast and nipple; Z86.14 Personal history of Methicillin resistant Staphylococcus aureus infection; Z53.29 Procedure and treatment not carried out because of patient's decision for other reasons; Z68.25 Body mass index [BMI] 25.0-25.9, adult
CPT/HCPCS: 36415; 71045; 74177; 76604; 80053; 80061; 81001; 82550; 82948; 83605; 83735; 83880; 84484; 85025; 85610; 85730; 87040; 87071; 87086; 87186; 87205; 93005; 93306; 93970; 94799; 99252; 99284; J0696; J2405; J2543; J7030; J7040; J7050; J7512; P9047; Q9967

== ENCOUNTER 2024-03-01 15:00 | Inpatient (IN) | payer MEDICARE, OTHER ==
[~2024-03-01] VITALS: Ht 188 cm; Wt 78.9 kg
[~2024-03-01 15:00] MED LIST changes: +ACETAMINOPHEN325 M1 PO; +BICARSIM FORTE125 MG PO; +CARAFATE1 GM/10 ML PO; +COMPAZINE25 MG PO; +DIGOXIN125 MCG PO; +ONDANSETRON ODT8 MG PO; +ULTRAM 50MG50 MG PO; +XARELTO20 MG PO
[2024-03-01 15:38] VITALS: TEMP 98.5
[2024-03-01 16:38] LABS: BASOPHILS % 0.5 % (0.0-1.0); EOSINOPHILS # (AUTO) 0.2 (0.0-0.4); EOSINOPHILS % 1.7 % (0.0-6.0); HEMATOCRIT 32.9 % (38.2-49.6); HEMOGLOBIN 9.9 g/dL (14.0-18.0); LYMPHOCYTES # (AUTO) 0.4 (1.0-3.2); LYMPHOCYTES % 4.4 % (18.0-39.1); MEAN CORPUSCULAR HEMOGLOBIN 30.8 pg (28-32); MEAN CORPUSCULAR HGB CONC 30.1 g/dL (31-35); MEAN CORPUSCULAR VOLUME 102.5 fL (81-99); MONOCYTES # (AUTO) 0.7 (0.2-0.8); MONOCYTES % 8.2 % (4.4-11.3); NEUTROPHILS # (AUTO) 7.3 (2.1-6.9); NEUTROPHILS % 84.6 % (38.7-80.0); PLATELET COUNT 302 x10e3/uL (140-360); RED BLOOD COUNT 3.21 x10e6/uL (4.3-5.7); RED CELL DISTRIBUTION WIDTH 16.6 % (11.7-14.4); WHITE BLOOD COUNT 8.61 x10e3/uL (4.8-10.8)
[2024-03-01 16:44] LABS: INR 2.77; PROTHROMBIN TIME 30.6 seconds (11.9-14.5)
[2024-03-01 16:45] LABS: PARTIAL THROMBOPLASTIN TIME 36.9 seconds (23.8-35.5)
[2024-03-01 16:54] LABS: ALBUMIN 2.9 g/dL (3.5-5.0); ANION GAP 19.3 mmol/L (8-16); CALCIUM 8.9 mg/dL (8.4-10.2); CREATININE, SERUM 1.57 mg/dL (0.72-1.25); MAGNESIUM 1.5 MG/DL (1.3-2.1); TOTAL PROTEIN 5.8 g/dL (6.5-8.1)
[2024-03-01 16:57] LABS: POTASSIUM 3.3 mmol/L (3.5-5.1)
[2024-03-01 17:00] LABS: TROPONIN I 0.122 ng/mL (0-0.300)
[2024-03-01 17:32] VITALS: PULSE 71; RESP 18; O2SAT 96
[2024-03-01 18:30] VITALS: PULSE 77; RESP 15
[2024-03-01] MEDS: SODIUM CHLORIDE 0.9% 1000ML 1,000 ML IV ONE (18:31)
[2024-03-01] MEDS: CIPROFLOXACIN 500 MG TAB PO SCH (18:31)
[2024-03-01 18:38] LABS: CORONAVIRUS COVID-19 AG NEGATIVE (NEGATIVE); INFLUENZA A AG NEGATIVE (NEGATIVE); INFLUENZA B AG NEGATIVE (NEGATIVE)
[2024-03-01 20:52] VITALS: BP 129/60; PULSE 73; RESP 18; TEMP 98; O2SAT 100
[2024-03-01] MEDS ORDERED: VITAMIN D325 MCG PO (21:24)
[2024-03-01] MEDS ORDERED: MUPIROCIN22 GM TOP (21:24)
[2024-03-01] MEDS ORDERED: SENNA8.6 MG PO (21:24)
[2024-03-01] MEDS ORDERED: GLIPIZIDE10 MG PO (21:24)
[2024-03-01 21:35] VITALS: BP 129/60; PULSE 73; RESP 18; TEMP 98; O2SAT 100
[2024-03-02] VITALS (7 sets, daily range): BP systolic 119–126; BP diastolic 49–59; PULSE 74–79; RESP 17–18; TEMP 97.9–98.6; O2SAT 97–100
[2024-03-02 02:04] LABS: TROPONIN I 0.104 ng/mL (0-0.300)
[2024-03-02 06:07] LABS: BASOPHILS % 0.7 % (0.0-1.0); EOSINOPHILS # (AUTO) 0.4 (0.0-0.4); EOSINOPHILS % 5.9 % (0.0-6.0); HEMATOCRIT 25.4 % (38.2-49.6); HEMOGLOBIN 8.1 g/dL (14.0-18.0); LYMPHOCYTES # (AUTO) 0.7 (1.0-3.2); LYMPHOCYTES % 10.7 % (18.0-39.1); MEAN CORPUSCULAR HGB CONC 31.9 g/dL (31-35); MEAN CORPUSCULAR VOLUME 97.3 fL (81-99); MONOCYTES # (AUTO) 0.7 (0.2-0.8); MONOCYTES % 11.2 % (4.4-11.3); NEUTROPHILS # (AUTO) 4.3 (2.1-6.9); PLATELET COUNT 250 x10e3/uL (140-360); RED BLOOD COUNT 2.61 x10e6/uL (4.3-5.7); RED CELL DISTRIBUTION WIDTH 16.7 % (11.7-14.4); WHITE BLOOD COUNT 6.08 x10e3/uL (4.8-10.8)
[2024-03-02 06:26] LABS: TROPONIN I 0.111 ng/mL (0-0.300)
[2024-03-02 06:34] LABS: ALBUMIN 2.3 g/dL (3.5-5.0); ANION GAP 13.2 mmol/L (8-16); BILIRUBIN,TOTAL 0.7 mg/dL (0.2-1.2); CALCIUM 8.2 mg/dL (8.4-10.2); CREATININE, SERUM 1.48 mg/dL (0.72-1.25); TOTAL PROTEIN 4.6 g/dL (6.5-8.1)
[2024-03-02 06:43] LABS: POTASSIUM 3.2 mmol/L (3.5-5.1)
[2024-03-02] MEDS ORDERED: FAMOTIDINE 20 MG TAB PO SCH (09:00)
[2024-03-02] MEDS: SENNOSIDES 8.6 MG TAB PO SCH (09:18)
[2024-03-02] MEDS: PANTOPRAZOLE SOD 40 MG TABEC PO SCH (09:18)
[2024-03-02] MEDS: MUPIROCIN 2% OINT 22 GM TUBE TOP SCH (09:18)
[2024-03-02] MEDS: SUCRALFATE 1 GM/10 ML SUSP PO SCH (09:18)
[2024-03-02] MEDS: DIGOXIN 0.125 MG TAB PO SCH (09:19)
[2024-03-02] MEDS: ONDANSETRON HCL INJ 2MG/ML 2ML 2 MG/ML VIAL IV PRN (12:27)
[2024-03-02 13:48] LABS: BODY FLUID APPEARANCE CLOUDY; BODY FLUID COLOR YELLOW; BODY FLUID TYPE PLEURAL; RBC,BODY FLUID < 2000 cells/uL; WBC,BODY FLUID 68 cells/uL
[2024-03-02 15:09] LABS: LYMPHOCYTES,BODY FLUID 6 %; MONO/MACROPHG,BODY FLUID 62 %; NEUTROPHILS,BODY FLUID 2 %; OTHER CELLS,BODY FLUID 30 %; TOTAL CELLS COUNTED (DIFF) 100
[2024-03-02] MEDS: ATORVASTATIN 40 MG TAB PO SCH (20:54)
[2024-03-03] VITALS (8 sets, daily range): BP systolic 116–137; BP diastolic 47–69; PULSE 70–85; RESP 15–18; TEMP 98.1–98.4; O2SAT 95–100
[2024-03-03 06:56] LABS: BASOPHILS % 0.7 % (0.0-1.0); EOSINOPHILS # (AUTO) 0.4 (0.0-0.4); EOSINOPHILS % 8.3 % (0.0-6.0); HEMATOCRIT 24.6 % (38.2-49.6); LYMPHOCYTES # (AUTO) 0.4 (1.0-3.2); LYMPHOCYTES % 9.9 % (18.0-39.1); MEAN CORPUSCULAR HGB CONC 30.9 g/dL (31-35); MEAN CORPUSCULAR VOLUME 100.4 fL (81-99); MONOCYTES # (AUTO) 0.6 (0.2-0.8); MONOCYTES % 13.5 % (4.4-11.3); NEUTROPHILS % 67.2 % (38.7-80.0); PLATELET COUNT 267 x10e3/uL (140-360); RED BLOOD COUNT 2.45 x10e6/uL (4.3-5.7); RED CELL DISTRIBUTION WIDTH 16.4 % (11.7-14.4); WHITE BLOOD COUNT 4.46 x10e3/uL (4.8-10.8)
[2024-03-03 07:09] LABS: HEMOGLOBIN 7.6 g/dL (14.0-18.0)
[2024-03-03 07:51] LABS: ALBUMIN 2.1 g/dL (3.5-5.0); ANION GAP 10.3 mmol/L (8-16); BILIRUBIN,TOTAL 0.6 mg/dL (0.2-1.2); CREATININE, SERUM 1.49 mg/dL (0.72-1.25); MAGNESIUM 1.6 MG/DL (1.3-2.1); TOTAL PROTEIN 4.3 g/dL (6.5-8.1)
[2024-03-03 07:56] LABS: POTASSIUM 3.3 mmol/L (3.5-5.1)
[2024-03-03] MEDS: POTASSIUM CHLORIDE 20 MEQ TAB CR PO ONE (11:56)
[2024-03-04] VITALS (7 sets, daily range): BP systolic 109–139; BP diastolic 49–64; PULSE 73–77; RESP 14–18; TEMP 97.1–98.4; O2SAT 96–100
[2024-03-04 08:07] LABS: BASOPHILS % 0.9 % (0.0-1.0); EOSINOPHILS # (AUTO) 0.4 (0.0-0.4); EOSINOPHILS % 7.5 % (0.0-6.0); HEMATOCRIT 24.9 % (38.2-49.6); HEMOGLOBIN 7.7 g/dL (14.0-18.0); LYMPHOCYTES # (AUTO) 0.4 (1.0-3.2); LYMPHOCYTES % 7.5 % (18.0-39.1); MEAN CORPUSCULAR HEMOGLOBIN 31.2 pg (28-32); MEAN CORPUSCULAR HGB CONC 30.9 g/dL (31-35); MEAN CORPUSCULAR VOLUME 100.8 fL (81-99); MONOCYTES # (AUTO) 0.6 (0.2-0.8); MONOCYTES % 13.1 % (4.4-11.3); NEUTROPHILS # (AUTO) 3.3 (2.1-6.9); NEUTROPHILS % 70.6 % (38.7-80.0); PLATELET COUNT 271 x10e3/uL (140-360); RED BLOOD COUNT 2.47 x10e6/uL (4.3-5.7); RED CELL DISTRIBUTION WIDTH 16.5 % (11.7-14.4); WHITE BLOOD COUNT 4.67 x10e3/uL (4.8-10.8)
[2024-03-04 08:26] LABS: ALBUMIN 2.1 g/dL (3.5-5.0); ANION GAP 11.6 mmol/L (8-16); BILIRUBIN,TOTAL 0.8 mg/dL (0.2-1.2); CREATININE, SERUM 1.18 mg/dL (0.72-1.25); POTASSIUM 3.6 mmol/L (3.5-5.1); TOTAL PROTEIN 4.2 g/dL (6.5-8.1)
[2024-03-04] MEDS: FAMOTIDINE 20 MG TAB PO SCH (08:47)
[2024-03-05 00:40] VITALS: BP 129/54; PULSE 75; RESP 16; TEMP 98; O2SAT 100
[2024-03-05 05:20] VITALS: BP 121/57; PULSE 75; RESP 18; TEMP 98.3; O2SAT 100
[2024-03-05] MEDS: POLYETHYLENE GLYCOL 3350 17 GM PACK PO SCH (09:00)
[2024-03-05 09:26] VITALS: BP 130/55; PULSE 74; RESP 16; TEMP 98.2; O2SAT 100
[2024-03-05 14:06] LABS: INR 1.36; PROTHROMBIN TIME 17.5 seconds (11.9-14.5)
[2024-03-05 19:37] VITALS: BP 121/50; PULSE 83; RESP 20; TEMP 97.8; O2SAT 100
[2024-03-05 20:24] VITALS: BP 121/50; PULSE 83; RESP 20; TEMP 97.8; O2SAT 100
[2024-03-05 23:27] VITALS: BP 129/59; PULSE 74; RESP 18; TEMP 98.1; O2SAT 100
[2024-03-06] VITALS (7 sets, daily range): BP systolic 115–145; BP diastolic 50–63; PULSE 74–78; RESP 16–20; TEMP 98–98.5; O2SAT 96–100
[2024-03-06 07:04] LABS: TOTAL PROTEIN,BODY FLUID 1.9 g/dL
[2024-03-06 09:59] LABS: ABG HCO3 23 mmol/L (22-26); ABG PCO2 35 mmHg (35-45); ABG PH 7.43 (7.35-7.45); ABG PO2 93 mmHg (80-105); ABG TCO2 24
[2024-03-07] VITALS (7 sets, daily range): BP systolic 118–133; BP diastolic 53–60; PULSE 50–77; RESP 18; TEMP 97.8–98.7; O2SAT 95–100
[2024-03-07 05:09] LABS: BASOPHILS % 0.9 % (0.0-1.0); EOSINOPHILS # (AUTO) 0.5 (0.0-0.4); EOSINOPHILS % 11.9 % (0.0-6.0); HEMATOCRIT 25.2 % (38.2-49.6); LYMPHOCYTES # (AUTO) 0.4 (1.0-3.2); LYMPHOCYTES % 8.4 % (18.0-39.1); MEAN CORPUSCULAR HEMOGLOBIN 30.3 pg (28-32); MEAN CORPUSCULAR HGB CONC 31.7 g/dL (31-35); MEAN CORPUSCULAR VOLUME 95.5 fL (81-99); MONOCYTES # (AUTO) 0.6 (0.2-0.8); MONOCYTES % 13.3 % (4.4-11.3); NEUTROPHILS # (AUTO) 2.9 (2.1-6.9); NEUTROPHILS % 64.8 % (38.7-80.0); PLATELET COUNT 246 x10e3/uL (140-360); RED BLOOD COUNT 2.64 x10e6/uL (4.3-5.7); RED CELL DISTRIBUTION WIDTH 16.1 % (11.7-14.4); WHITE BLOOD COUNT 4.52 x10e3/uL (4.8-10.8)
[2024-03-07 05:23] LABS: INR 1.28; PROTHROMBIN TIME 16.7 seconds (11.9-14.5)
[2024-03-07 05:31] LABS: ALBUMIN 1.9 g/dL (3.5-5.0); ALBUMIN/GLOBULIN RATIO 0.8 (0.8-2.0); ANION GAP 9.7 mmol/L (8-16); BILIRUBIN,TOTAL 0.7 mg/dL (0.2-1.2); CREATININE, SERUM 1.06 mg/dL (0.72-1.25); MAGNESIUM 1.8 MG/DL (1.3-2.1); POTASSIUM 3.7 mmol/L (3.5-5.1); TOTAL PROTEIN 4.2 g/dL (6.5-8.1)
[2024-03-07 10:53] LABS: ABG HCO3 23 mmol/L (22-26); ABG PCO2 35 mmHg (35-45); ABG PH 7.43 (7.35-7.45); ABG PO2 93 mmHg (80-105); ABG TCO2 24
[2024-03-08 03:06] VITALS: BP 120/52; PULSE 81; RESP 18; TEMP 98.1; O2SAT 100
[2024-03-08 08:00] VITALS: BP_SYST 113; BP_SYST 119; BP_DIAS 43; BP_DIAS 44; PULSE 79; RESP 20; TEMP 98; O2SAT 100; O2SAT 97
[2024-03-08] MEDS: DEXTROSE 5%/0.9% SOD CHL 1,000 ML IV SCH (10:51)
[2024-03-08 11:07] VITALS: BP 133/59; PULSE 69; RESP 19; TEMP 97.6; O2SAT 98
[2024-03-08] MEDS ORDERED: TRAMADOL/APAP 37.5MG-325MG TAB PO PRN (15:00)
[2024-03-08 16:16] VITALS: BP 120/46; PULSE 76; RESP 20; TEMP 97.5; O2SAT 99
[2024-03-08 20:11] VITALS: BP 116/66; PULSE 75; RESP 18; TEMP 97.7; O2SAT 96
[2024-03-08 21:00] VITALS: BP 116/66; PULSE 75; RESP 18; TEMP 97.7; O2SAT 96
[2024-03-09] VITALS: BP 131/56; PULSE 73; RESP 18; TEMP 97.8; O2SAT 100
[2024-03-09 04:00] VITALS: BP 125/55; PULSE 76; RESP 18; TEMP 97.8; O2SAT 100
[2024-03-09] MEDS ORDERED: ULTRAM 50MG50 MG PO (06:32)
[2024-03-09 07:50] VITALS: BP 128/56; PULSE 75; RESP 18; TEMP 97.1; O2SAT 94
[2024-03-09] MEDS: PNEUMOCOCCAL VACCINE POLYVALENT 23 MCG/0.5 ML VIAL IM SCH (09:40)
[2024-03-09] MEDS: INFLUENZA VIRUS VAC SPLIT INJ 0.5 ML SYR IM SCH (09:42)
== END 2024-03-09 10:17 | disposition home or self-care (01) | DRG 186 ==
LOC: ER 15:18 → ERHOLD 17:28 → MED/SURG 19:59 → MED/SURG2 03-08 21:17
PROVIDERS: ADMIT Internal Medicine; ATTEND Internal Medicine
PROC: 02HV33Z Insertion of Infusion Device into Superior Vena Cava, Percutaneous Approach (ICD-10-PCS; 2024-03-01)
PROC: 0W9B3ZZ Drainage of Left Pleural Cavity, Percutaneous Approach (ICD-10-PCS; 2024-03-02)
PROC: 4A133R1 Monitoring of Arterial Saturation, Peripheral, Percutaneous Approach (ICD-10-PCS; 2024-03-06)
PROC: 0JB40ZX Excision of Right Neck Subcutaneous Tissue and Fascia, Open Approach, Diagnostic (ICD-10-PCS; principal; 2024-03-08 14:12)
DX: J90 Pleural effusion, not elsewhere classified (principal); E43 Unspecified severe protein-calorie malnutrition; J96.01 Acute respiratory failure with hypoxia; N17.9 Acute kidney failure, unspecified; I48.20 Chronic atrial fibrillation, unspecified; I49.5 Sick sinus syndrome; D64.9 Anemia, unspecified; E11.22 Type 2 diabetes mellitus with diabetic chronic kidney disease; E78.5 Hyperlipidemia, unspecified; L72.0 Epidermal cyst; I12.9 Hypertensive chronic kidney disease with stage 1 through stage 4 chronic kidney disease, or unspecified chronic kidney disease; I25.10 Atherosclerotic heart disease of native coronary artery without angina pectoris; N18.31 Chronic kidney disease, stage 3a; K21.9 Gastro-esophageal reflux disease without esophagitis; Z11.52 Encounter for screening for COVID-19; Z68.22 Body mass index [BMI] 22.0-22.9, adult; Z79.01 Long term (current) use of anticoagulants; Z79.4 Long term (current) use of insulin; Z95.810 Presence of automatic (implantable) cardiac defibrillator; Z92.21 Personal history of antineoplastic chemotherapy; Z85.3 Personal history of malignant neoplasm of breast; Z90.11 Acquired absence of right breast and nipple; Z85.01 Personal history of malignant neoplasm of esophagus; Z86.14 Personal history of Methicillin resistant Staphylococcus aureus infection; Z89.412 Acquired absence of left great toe; Z87.891 Personal history of nicotine dependence
CPT/HCPCS: 32555; 36415; 36569; 36600; 71045; 74470; 76536; 76604; 80053; 82040; 82550; 82805; 82945; 82948; 83615; 83735; 83880; 84157; 84484; 85025; 85610; 85730; 86900; 87040; 87070; 87205; 88112; 88304; 88305; 89051; 90732; 93005; 94799; 99252; 99284; C1729; J2405; J7030; J7042

== ENCOUNTER 2024-04-05 19:44 | Inpatient (IN) | payer MEDICARE, OTHER ==
[~2024-04-05] VITALS: Ht 193 cm; Wt 72.6 kg
[~2024-04-05 19:44] MED LIST changes: +GLIPIZIDE10 MG PO; +MUPIROCIN22 GM TOP; +SENNA8.6 MG PO; +VITAMIN D325 MCG PO
[2024-04-05 19:52] VITALS: TEMP 97.7
[2024-04-05 19:55] VITALS: PULSE 79; RESP 16; O2SAT 100
[2024-04-05 20:12] LABS: BASOPHILS % 0.1 % (0.0-1.0); EOSINOPHILS # (AUTO) 0.1 (0.0-0.4); EOSINOPHILS % 0.8 % (0.0-6.0); HEMATOCRIT 30.9 % (38.2-49.6); HEMOGLOBIN 9.5 g/dL (14.0-18.0); LYMPHOCYTES # (AUTO) 0.5 (1.0-3.2); LYMPHOCYTES % 4.9 % (18.0-39.1); MEAN CORPUSCULAR HEMOGLOBIN 29.6 pg (28-32); MEAN CORPUSCULAR HGB CONC 30.7 g/dL (31-35); MEAN CORPUSCULAR VOLUME 96.3 fL (81-99); MONOCYTES # (AUTO) 0.6 (0.2-0.8); MONOCYTES % 5.8 % (4.4-11.3); NEUTROPHILS % 87.9 % (38.7-80.0); PLATELET COUNT 321 x10e3/uL (140-360); RED BLOOD COUNT 3.21 x10e6/uL (4.3-5.7); RED CELL DISTRIBUTION WIDTH 16.4 % (11.7-14.4); WHITE BLOOD COUNT 10.27 x10e3/uL (4.8-10.8)
[2024-04-05 20:34] LABS: ALBUMIN 2.1 g/dL (3.5-5.0); ALBUMIN/GLOBULIN RATIO 0.7 (0.8-2.0); ANION GAP 15.3 mmol/L (8-16); BILIRUBIN,TOTAL 0.6 mg/dL (0.2-1.2); CALCIUM 8.7 mg/dL (8.4-10.2); CREATININE, SERUM 1.81 mg/dL (0.72-1.25); POTASSIUM 4.3 mmol/L (3.5-5.1)
[2024-04-05 20:41] LABS: CLARITY,URINE CLEAR (CLEAR); COLOR,URINE YELLOW (YELLOW)
[2024-04-05 20:42] LABS: BILIRUBIN,URINE NEGATIVE (NEGATIVE); GLUCOSE, URINE NEGATIVE (NEGATIVE); KETONES,URINE NEGATIVE (NEGATIVE); LEUKOCYTE ESTERASE ,URINE NEGATIVE (NEGATIVE); NITRITE,URINE NEGATIVE (NEGATIVE); PH,URINE 5.5 (5 - 7); PROTEIN,URINE DIPSTICK TRACE (NEGATIVE); URINE UROBILINOGEN 0.2 mg/dL (0.2 - 1)
[2024-04-05 20:45] LABS: WBC,URINE (MAN) 0-5 /HPF (0-5)
[2024-04-05 20:46] LABS: BACTERIA,URINE FEW /HPF; RBC,URINE 0-5 /HPF (0-5)
[2024-04-05] MEDS ORDERED: DEXTROSE 50% SYRINGE 50 ML IV PRN (21:45)
[2024-04-05 22:30] VITALS: PULSE 79; RESP 16
[2024-04-05] MEDS: SODIUM CHLORIDE 0.9% 1000ML 1,000 ML IV ONE (23:07)
[2024-04-06] VITALS (10 sets, daily range): BP systolic 101–138; BP diastolic 50–78; PULSE 70–89; RESP 16–21; TEMP 97.7–98.6; O2SAT 99–100
[2024-04-06] MEDS ORDERED: PROCHLORPERAZIN10 MG PO (02:21)
[2024-04-06] MEDS ORDERED: POLYETHYLENE GL17 GM PO (02:21)
[2024-04-06] MEDS ORDERED: ONDANSETRON ODT8 MG PO (02:21)
[2024-04-06] MEDS ORDERED: Morphine 2mg Syringe 2 MG/ML SYR IV PRN (04:30)
[2024-04-06 05:51] LABS: BASOPHILS % 0.1 % (0.0-1.0); EOSINOPHILS # (AUTO) 0.1 (0.0-0.4); HEMATOCRIT 32.9 % (38.2-49.6); HEMOGLOBIN 9.5 g/dL (14.0-18.0); LYMPHOCYTES # (AUTO) 0.4 (1.0-3.2); LYMPHOCYTES % 4.8 % (18.0-39.1); MEAN CORPUSCULAR HEMOGLOBIN 29.3 pg (28-32); MEAN CORPUSCULAR HGB CONC 28.9 g/dL (31-35); MEAN CORPUSCULAR VOLUME 101.5 fL (81-99); MONOCYTES # (AUTO) 0.5 (0.2-0.8); NEUTROPHILS # (AUTO) 7.9 (2.1-6.9); NEUTROPHILS % 87.7 % (38.7-80.0); PLATELET COUNT 280 x10e3/uL (140-360); RED BLOOD COUNT 3.24 x10e6/uL (4.3-5.7); RED CELL DISTRIBUTION WIDTH 16.7 % (11.7-14.4); WHITE BLOOD COUNT 8.96 x10e3/uL (4.8-10.8)
[2024-04-06 06:39] LABS: TROPONIN I 0.212 ng/mL (0-0.300)
[2024-04-06] MEDS: INSULIN REGULAR, HUMAN 100 UNIT/1 ML SQ SCH (07:30)
[2024-04-06 08:10] LABS: ALBUMIN 2.2 g/dL (3.5-5.0); ALBUMIN/GLOBULIN RATIO 0.7 (0.8-2.0); ANION GAP 16.4 mmol/L (8-16); BILIRUBIN,TOTAL 0.6 mg/dL (0.2-1.2); CALCIUM 8.6 mg/dL (8.4-10.2); CREATININE, SERUM 1.44 mg/dL (0.72-1.25); POTASSIUM 4.4 mmol/L (3.5-5.1); TOTAL PROTEIN 5.4 g/dL (6.5-8.1)
[2024-04-06] MEDS ORDERED: FAMOTIDINE 20 MG TAB PO SCH (09:00)
[2024-04-06] MEDS: PANTOPRAZOLE SOD 40 MG TABEC PO SCH (09:22)
[2024-04-06] MEDS: DIGOXIN 0.125 MG TAB PO SCH (09:22)
[2024-04-06] MEDS: COLLAGENASE 5 GM TUBE TOP SCH (12:08)
[2024-04-06] MEDS: ATORVASTATIN 10 MG TAB PO SCH (20:32)
[2024-04-07] VITALS (10 sets, daily range): BP systolic 111–137; BP diastolic 50–59; PULSE 74–113; RESP 16–22; TEMP 97.4–98.7; O2SAT 100
[2024-04-07 07:11] LABS: BASOPHILS % 0.2 % (0.0-1.0); EOSINOPHILS # (AUTO) 0.1 (0.0-0.4); EOSINOPHILS % 0.4 % (0.0-6.0); HEMATOCRIT 32.7 % (38.2-49.6); HEMOGLOBIN 9.6 g/dL (14.0-18.0); LYMPHOCYTES # (AUTO) 0.4 (1.0-3.2); LYMPHOCYTES % 3.6 % (18.0-39.1); MEAN CORPUSCULAR HGB CONC 29.4 g/dL (31-35); MEAN CORPUSCULAR VOLUME 98.8 fL (81-99); MONOCYTES # (AUTO) 0.6 (0.2-0.8); MONOCYTES % 5.3 % (4.4-11.3); NEUTROPHILS # (AUTO) 10.9 (2.1-6.9); NEUTROPHILS % 89.9 % (38.7-80.0); PLATELET COUNT 302 x10e3/uL (140-360); RED BLOOD COUNT 3.31 x10e6/uL (4.3-5.7); RED CELL DISTRIBUTION WIDTH 16.9 % (11.7-14.4); WHITE BLOOD COUNT 12.07 x10e3/uL (4.8-10.8)
[2024-04-07 07:46] LABS: ALBUMIN 2.1 g/dL (3.5-5.0); ALBUMIN/GLOBULIN RATIO 0.7 (0.8-2.0); ANION GAP 12.8 mmol/L (8-16); BILIRUBIN,TOTAL 0.9 mg/dL (0.2-1.2); CALCIUM 8.7 mg/dL (8.4-10.2); CREATININE, SERUM 1.02 mg/dL (0.72-1.25); MAGNESIUM 1.8 MG/DL (1.3-2.1); POTASSIUM 3.8 mmol/L (3.5-5.1)
[2024-04-07 08:03] LABS: TROPONIN I 0.286 ng/mL (0-0.300)
[2024-04-07] MEDS: FAMOTIDINE 20 MG TAB PO SCH (09:48)
[2024-04-07 12:36] LABS: TROPONIN I 0.319 ng/mL (0-0.300)
[2024-04-07] MEDS: SODIUM CHLORIDE 0.9% 1000ML 1,000 ML IV SCH (17:16)
[2024-04-07] MEDS: ENOXAPARIN INJ 80 MG/0.8 ML SYR SC SCH (17:16)
[2024-04-08] VITALS (12 sets, daily range): BP systolic 110–134; BP diastolic 54–62; PULSE 62–82; RESP 16–20; TEMP 97.9–98.6; O2SAT 94–100
[2024-04-08 05:59] LABS: BASOPHILS % 0.1 % (0.0-1.0); EOSINOPHILS % 0.2 % (0.0-6.0); HEMATOCRIT 26.4 % (38.2-49.6); LYMPHOCYTES # (AUTO) 0.4 (1.0-3.2); LYMPHOCYTES % 3.2 % (18.0-39.1); MEAN CORPUSCULAR HEMOGLOBIN 29.2 pg (28-32); MEAN CORPUSCULAR HGB CONC 30.3 g/dL (31-35); MEAN CORPUSCULAR VOLUME 96.4 fL (81-99); MONOCYTES # (AUTO) 0.5 (0.2-0.8); MONOCYTES % 4.1 % (4.4-11.3); NEUTROPHILS # (AUTO) 11.5 (2.1-6.9); NEUTROPHILS % 91.8 % (38.7-80.0); PLATELET COUNT 275 x10e3/uL (140-360); RED BLOOD COUNT 2.74 x10e6/uL (4.3-5.7); RED CELL DISTRIBUTION WIDTH 16.9 % (11.7-14.4); WHITE BLOOD COUNT 12.55 x10e3/uL (4.8-10.8)
[2024-04-08 06:28] LABS: ALBUMIN 1.8 g/dL (3.5-5.0); ALBUMIN/GLOBULIN RATIO 0.8 (0.8-2.0); ANION GAP 12.6 mmol/L (8-16); BILIRUBIN,TOTAL 0.8 mg/dL (0.2-1.2); CALCIUM 7.9 mg/dL (8.4-10.2); CREATININE, SERUM 0.95 mg/dL (0.72-1.25); MAGNESIUM 1.7 MG/DL (1.3-2.1); POTASSIUM 3.6 mmol/L (3.5-5.1); TOTAL PROTEIN 4.2 g/dL (6.5-8.1)
[2024-04-08] MEDS: ONDANSETRON HCL INJ 2MG/ML 2ML 2 MG/ML VIAL IV PRN (17:10)
[2024-04-08] MEDS: SUCRALFATE 1 GM/10 ML SUSP PO SCH (17:10)
[2024-04-09] VITALS (10 sets, daily range): BP systolic 124–145; BP diastolic 52–59; PULSE 68–93; RESP 16–20; TEMP 97.6–98.5; O2SAT 96–100
[2024-04-09 07:38] LABS: BASOPHILS % 0.1 % (0.0-1.0); EOSINOPHILS % 0.4 % (0.0-6.0); HEMATOCRIT 28.6 % (38.2-49.6); HEMOGLOBIN 8.4 g/dL (14.0-18.0); LYMPHOCYTES # (AUTO) 0.4 (1.0-3.2); LYMPHOCYTES % 3.3 % (18.0-39.1); MEAN CORPUSCULAR HEMOGLOBIN 29.1 pg (28-32); MEAN CORPUSCULAR HGB CONC 29.4 g/dL (31-35); MONOCYTES # (AUTO) 0.4 (0.2-0.8); MONOCYTES % 3.9 % (4.4-11.3); NEUTROPHILS # (AUTO) 10.4 (2.1-6.9); NEUTROPHILS % 91.9 % (38.7-80.0); PLATELET COUNT 294 x10e3/uL (140-360); RED BLOOD COUNT 2.89 x10e6/uL (4.3-5.7); RED CELL DISTRIBUTION WIDTH 16.7 % (11.7-14.4); WHITE BLOOD COUNT 11.34 x10e3/uL (4.8-10.8)
[2024-04-09 07:57] LABS: ALBUMIN 1.9 g/dL (3.5-5.0); ALBUMIN/GLOBULIN RATIO 0.8 (0.8-2.0); ANION GAP 12.5 mmol/L (8-16); BILIRUBIN,TOTAL 0.9 mg/dL (0.2-1.2); CREATININE, SERUM 0.8 mg/dL (0.72-1.25); MAGNESIUM 1.7 MG/DL (1.3-2.1); POTASSIUM 3.5 mmol/L (3.5-5.1); TOTAL PROTEIN 4.4 g/dL (6.5-8.1)
[2024-04-09] MEDS: TRAMADOL HCL 50 MG TAB PO PRN (23:45)
[2024-04-10] VITALS (10 sets, daily range): BP systolic 108–140; BP diastolic 54–74; PULSE 76–96; RESP 16–21; TEMP 97.5–98; O2SAT 95–100
[2024-04-10 07:06] LABS: EOSINOPHILS # (AUTO) 0.1 (0.0-0.4); EOSINOPHILS % 0.6 % (0.0-6.0); HEMATOCRIT 28.3 % (38.2-49.6); HEMOGLOBIN 8.7 g/dL (14.0-18.0); LYMPHOCYTES # (AUTO) 0.3 (1.0-3.2); LYMPHOCYTES % 3.9 % (18.0-39.1); MEAN CORPUSCULAR HEMOGLOBIN 29.5 pg (28-32); MEAN CORPUSCULAR HGB CONC 30.7 g/dL (31-35); MEAN CORPUSCULAR VOLUME 95.9 fL (81-99); MONOCYTES # (AUTO) 0.4 (0.2-0.8); MONOCYTES % 4.8 % (4.4-11.3); NEUTROPHILS # (AUTO) 7.2 (2.1-6.9); NEUTROPHILS % 90.1 % (38.7-80.0); PLATELET COUNT 297 x10e3/uL (140-360); RED BLOOD COUNT 2.95 x10e6/uL (4.3-5.7); RED CELL DISTRIBUTION WIDTH 16.6 % (11.7-14.4); WHITE BLOOD COUNT 7.98 x10e3/uL (4.8-10.8)
[2024-04-10 07:27] LABS: INR 1.18; PROTHROMBIN TIME 15.7 seconds (11.9-14.5)
[2024-04-10 07:39] LABS: ANION GAP 11.5 mmol/L (8-16); CALCIUM 7.9 mg/dL (8.4-10.2); CREATININE, SERUM 0.78 mg/dL (0.72-1.25); POTASSIUM 3.5 mmol/L (3.5-5.1)
[2024-04-10] MEDS ORDERED: PROPOFOL IV EMULSION 10 MG/ML 20 ML VIAL ONE (13:57)
[2024-04-10] MEDS ORDERED: LIDOCAINE HCL 2% LOCAL INJ 5 ML SDV VIAL INJ ONE (13:57)
[2024-04-10] MEDS ORDERED: ETOMIDATE 40 MG/ 20ML VIAL IV ONE (13:58)
[2024-04-10] MEDS ORDERED: PHENYLEPHRINE HCL 1% 10 MG/ML VIAL ONE (14:53)
[2024-04-10] MEDS: SCOPOLAMINE 1 MG PATCH ONE (20:15)
[2024-04-11] VITALS (8 sets, daily range): BP systolic 104–127; BP diastolic 47–63; PULSE 50–88; RESP 16–20; TEMP 97.6–98.3; O2SAT 94–100
[2024-04-11 08:46] LABS: BASOPHILS % 0.1 % (0.0-1.0); EOSINOPHILS # (AUTO) 0.1 (0.0-0.4); EOSINOPHILS % 0.5 % (0.0-6.0); HEMATOCRIT 29.6 % (38.2-49.6); HEMOGLOBIN 9.1 g/dL (14.0-18.0); LYMPHOCYTES # (AUTO) 0.3 (1.0-3.2); LYMPHOCYTES % 2.9 % (18.0-39.1); MEAN CORPUSCULAR HEMOGLOBIN 29.7 pg (28-32); MEAN CORPUSCULAR HGB CONC 30.7 g/dL (31-35); MEAN CORPUSCULAR VOLUME 96.7 fL (81-99); MONOCYTES # (AUTO) 0.4 (0.2-0.8); NEUTROPHILS # (AUTO) 10.1 (2.1-6.9); PLATELET COUNT 280 x10e3/uL (140-360); RED BLOOD COUNT 3.06 x10e6/uL (4.3-5.7); RED CELL DISTRIBUTION WIDTH 16.8 % (11.7-14.4)
[2024-04-11 09:29] LABS: ALBUMIN 1.7 g/dL (3.5-5.0); ALBUMIN/GLOBULIN RATIO 0.6 (0.8-2.0); ANION GAP 11.1 mmol/L (8-16); BILIRUBIN,TOTAL 0.6 mg/dL (0.2-1.2); CREATININE, SERUM 0.81 mg/dL (0.72-1.25); MAGNESIUM 1.8 MG/DL (1.3-2.1); POTASSIUM 4.1 mmol/L (3.5-5.1); TOTAL PROTEIN 4.5 g/dL (6.5-8.1)
[2024-04-12] VITALS (10 sets, daily range): BP systolic 89–142; BP diastolic 40–62; PULSE 62–85; RESP 16–20; TEMP 97.1–98.6; O2SAT 90–99
[2024-04-13 01:08] VITALS: BP 116/45; PULSE 87; RESP 20; TEMP 98.4
[2024-04-13 04:15] VITALS: BP 129/68; PULSE 76; RESP 20; TEMP 95.7
[2024-04-13 07:13] VITALS: PULSE 74; RESP 20; O2SAT 95
[2024-04-13 08:00] VITALS: BP 120/54; PULSE 78; RESP 20; TEMP 97.7; O2SAT 92
[2024-04-13 12:00] VITALS: BP 110/73; PULSE 91; RESP 19; TEMP 97.5
[2024-04-13 16:00] VITALS: BP 120/63; PULSE 85; RESP 19; TEMP 97.5
== END 2024-04-13 19:05 | DRG 843 ==
LOC: ER 19:49 → ERHOLD 21:44 → MED/SURG3 23:11
PROVIDERS: ADMIT Internal Medicine; ATTEND Internal Medicine
PROC: 0DH63UZ Insertion of Feeding Device into Stomach, Percutaneous Approach (ICD-10-PCS; principal; 2024-04-10 14:39)
DX: C79.89 Secondary malignant neoplasm of other specified sites (principal); E43 Unspecified severe protein-calorie malnutrition; G93.41 Metabolic encephalopathy; R64 Cachexia; N17.9 Acute kidney failure, unspecified; Z68.1 Body mass index [BMI] 19.9 or less, adult; L89.150 Pressure ulcer of sacral region, unstageable; R62.7 Adult failure to thrive; R13.10 Dysphagia, unspecified; E86.0 Dehydration; E11.22 Type 2 diabetes mellitus with diabetic chronic kidney disease; N18.31 Chronic kidney disease, stage 3a; D63.0 Anemia in neoplastic disease; I25.10 Atherosclerotic heart disease of native coronary artery without angina pectoris; R44.1 Visual hallucinations; I48.91 Unspecified atrial fibrillation; R63.0 Anorexia; K21.00 Gastro-esophageal reflux disease with esophagitis, without bleeding; E03.9 Hypothyroidism, unspecified; M62.50 Muscle wasting and atrophy, not elsewhere classified, unspecified site; K29.70 Gastritis, unspecified, without bleeding; Z79.01 Long term (current) use of anticoagulants; Z79.4 Long term (current) use of insulin; Z79.84 Long term (current) use of oral hypoglycemic drugs; Z92.3 Personal history of irradiation; Z92.21 Personal history of antineoplastic chemotherapy; Z86.14 Personal history of Methicillin resistant Staphylococcus aureus infection; Z90.11 Acquired absence of right breast and nipple; Z89.412 Acquired absence of left great toe; Z85.01 Personal history of malignant neoplasm of esophagus
CPT/HCPCS: 36415; 43246; 70450; 71045; 72100; 80048; 80053; 81001; 82550; 82948; 83735; 84484; 85025; 85610; 93005; 93925; 93970; 94799; 96361; 99252; 99285; J0690; J1650; J2003; J2371; J2405; J7030